=== PATIENT | female | born 1980 | race Caucasian/White ===

== ENCOUNTER 2020-01-29 09:33 | Outpatient (REF) | payer SELFPAY | END 2020-01-29 09:34 | disposition home or self-care (01) | LOC: HO.RESP 09:33 | PROVIDERS: Visit Provider Internal Medicine | DX: R06.02 Shortness of breath (principal) | CPT/HCPCS: 94010 ==

== ENCOUNTER 2023-02-13 11:24 | Outpatient (AMB) | payer MEDICAID, SELFPAY ==
--- NOTE | 2023-02-13 11:27 | MHC.OFFVIS ---
Intake Vital Signs 02/13/23 11:29 Height 5 ft 7 in Weight 323 lb 3.163 oz BMI 50.6 Intake Visit Reasons: Umbilical Hernia Intake Note: Patient referred for Umbilical hernia. Present for 1 yr. C/o pain with pressure on it. C/o bloody stools. Network Services Project Manager Required: No Accompanied by: Self / Same As Patient Allergies No Known Allergies [No Known Allergies*] Allergy (Unverified 02/13/23 11:30) HPI HPI Comments History of Present Illness Details Patient presents with a symptomatic ventral hernia. She has had this status post laparoscopic cholecystectomy at [facility] few years ago. It is increasing in size, becoming more symptomatic. She wished to have this repaired. She is tolerating a diet. Having regular bowel habits. She has no is other GI issues or complaints. Chart was reviewed patient evaluated [facility] Medical History (Updated 02/13/23 @ 11:36 by YANELY Prealta) Gallbladder calculus with acute cholecystitis Carpal tunnel syndrome, bilateral upper limbs Dermoid cyst of spine Tubal ligation evaluation Anxiety Arthritis of knee PCOS (polycystic ovarian syndrome) Venous stasis dermatitis of both lower extremities Skin ulcer of upper arm Vaginal discharge Vascular insufficiency Foot pain IFG (impaired fasting glucose) Nicotine dependence Obstructive sleep apnea syndrome Recurrent major depressive episodes Schizoaffective disorder, bipolar type Snoring Umbilical hernia Inflammatory dermatosis Essential hypertension Edema of lower extremity Dyspnea Degeneration of lumbar intervertebral disc Complicated varicose veins Chronic low back pain Chronic constipation Carpal tunnel syndrome Arthropathy of lumbar facet joint Amenorrhea Family History (Updated 02/13/23 @ 11:37 by YANELY Peralta) Mother Diabetes HTN (hypertension) Asthma Social History (Updated 02/13/23 @ 11:38 by YANELY Peralta) Alcohol intake: former Patient Tobacco Use Status: Current someday Tobacco user Tobacco use type: Cigarette Cigarettes Per Day: 5 Physical Exam Vital Signs: BMI result Body Mass Index 50.6 Const Other: Very corpulent female Chest Other: Chest breath sounds bilaterally, HS one in two GI Other: Very corporate abdominal wall with Enormous pannus. Supraumbilical incision. Patient was examined both supine and standing with Valsalva. Incarcerated incisional supraumbilical ventral hernia. Abdomen otherwise benign Assessment & Plan Assessment & Plan (1) Incarcerated incisional hernia: Code(s): K43.0 - Incisional hernia with obstruction, without gangrene Plan Risks, benefits, alternatives open incisional ventral incarcerated hernia repair with mesh reviewed the patient and included but not limited to bleeding, infection, recurrence, numbness, pain, scarring, bowel injury and the patient wishes to proceed. All questions were answered. Arrangements will be made for this. Coding Level of Care Code New Pt Level 5 (28944) Diagnoses Incarcerated incisional hernia K43.0
[2023-02-13 11:29] VITALS: BMI 50.6
== END 2023-02-13 12:05 | disposition home or self-care (01) ==
PROVIDERS: PCP Internal Medicine; Visit Provider Surgery
DX: K43.0 Incisional hernia with obstruction, without gangrene (principal)
CPT/HCPCS: 99204

== ENCOUNTER → 2023-02-13 11:24 | Outpatient (BNVA) | payer MEDICAID, SELFPAY | PROVIDERS: PCP Internal Medicine; Visit Provider Surgery | DX: K43.0 Incisional hernia with obstruction, without gangrene (principal) | CPT/HCPCS: 99202 ==

== ENCOUNTER 2023-03-10 05:56 | Day surgery (SDC) | payer MEDICAID, SELFPAY ==
[2023-03-07 14:02] VITALS: BMI 50.7
--- NOTE | 2023-03-09 23:02 | MHC.SHP ---
Pre-Procedural Eval Section A Date of Service: 03/09/23 The patient is an INPATIENT: No Changes since office visit: No Cold of Flu in the past 2 weeks, No New Medical Problems, No Changes in Medication and No Patient answered all questions The History & Physical has been completed within 30 days and I have reviewed it.: Yes Section B Chief Complaint: Incisional hernia with obstruction, without gangre Allergies: Allergies Allergy/AdvReac Type Severity Reaction Status Date / Time No Known Allergies Allergy Unverified 02/13/23 11:30 [No Known Allergies*] Plan I have reviewed the history and physical and performed a pertinent physical examination on my patient. No changes have occurred unless specified. Time Spent With Patient Time: Total time managing care of this patient today ____ minutes.
[2023-03-10] VITALS (8 sets, daily range): BP systolic 113–152; BP diastolic 49–86; PULSE 68–75; RESP 20; TEMP 36.1–36.4; O2SAT 95–99; BMI 51.1
[2023-03-10] MEDS: Lactated Ringers 1,000 ML 100 ML IVCONT (06:50)
--- NOTE | 2023-03-10 07:20 | P.CONAN_ITS ---
Documented by User: Deysi Yee NP 03/09/23 10:34 HPI - Anesthesia Eval Consult details Narrative: 42yo F for Open Repair Incarcerated Ventral Incisional hernia w/mesh Methadone daily PMFSH Active Problems Active Problems: All Active Problems (Updated 03/07/23 @ 13:52 by Adrianna Costello RN) Incarcerated incisional hernia (Acute) Past Medical History Medical History (Updated 03/07/23 @ 13:49 by Adrianna Costello RN) Gallbladder calculus with acute cholecystitis Carpal tunnel syndrome, bilateral upper limbs Dermoid cyst of spine Tubal ligation evaluation Anxiety Arthritis of knee PCOS (polycystic ovarian syndrome) Venous stasis dermatitis of both lower extremities Skin ulcer of upper arm Vaginal discharge Vascular insufficiency Foot pain IFG (impaired fasting glucose) Nicotine dependence Obstructive sleep apnea syndrome Recurrent major depressive episodes Schizoaffective disorder, bipolar type Snoring Umbilical hernia Inflammatory dermatosis Essential hypertension Edema of lower extremity Dyspnea Degeneration of lumbar intervertebral disc Complicated varicose veins Chronic low back pain Chronic constipation Arthropathy of lumbar facet joint Amenorrhea Family History Family History (Updated 02/13/23 @ 11:37 by YANELY Peralta) Mother Diabetes HTN (hypertension) Asthma Surgical History Surgical History (Updated 03/10/23 @ 06:18 by Lee Le RN) History of tubal ligation History of surgical removal of pilonidal cyst Social History Social History (Updated 02/13/23 @ 11:38 by YANELY Peralta) Alcohol intake: former Patient Tobacco Use Status: Current everyday Tobacco user Tobacco use type: Cigarette Cigarette Packs Per Day: 0.5 Cigarettes Per Day: 10.0 Second Hand Smoke Exposure: No Use of substances other than those prescribed or required for medical reasons: No Are you DNR?: No Advance Directives: No Advance Directives Information Provided: Yes Advance Directives on File: No Meds Allergies Allergy/AdvReac Type Severity Reaction Status Date / Time No Known Allergies Allergy Unverified 02/13/23 11:30 [No Known Allergies*] Home Medications Medication Instructions Recorded Confirmed Last Taken Type alprazolam 2 mg tablet 2 mg PO BEDTIME 02/13/23 03/07/23 Unknown History clonidine HCl 0.1 mg tablet 0.2 mg PO BEDTIME 02/13/23 03/07/23 Unknown History fluoxetine 40 mg capsule 80 mg PO BEDTIME 02/13/23 03/07/23 Unknown History gabapentin 600 mg tablet 600 mg PO DAILY 02/13/23 03/07/23 Unknown History naproxen 500 mg tablet 500 mg PO BID 02/13/23 03/07/23 Unknown History quetiapine 400 mg tablet 600 mg PO BEDTIME 02/13/23 03/07/23 Unknown History quetiapine 50 mg tablet (Seroquel) 50 mg PO BID 02/13/23 03/07/23 03/10/23 History amlodipine 5 mg tablet 5 mg PO DAILY 03/07/23 03/07/23 03/10/23 History lisinopril 20 1 tab PO DAILY 03/07/23 03/07/23 Unknown History mg-hydrochlorothiazide 12.5 mg tablet methadone 10 mg/mL oral concentrate 70 mg PO BEDTIME 03/07/23 03/07/23 03/10/23 History spironolactone 25 mg tablet 25 mg PO DAILY 03/07/23 03/07/23 Unknown History Exam Height,Weight and Vital Signs: Height 5 ft 7 in Weight 146.964 kg Assessment and Plan Assessment Anesthesia Assessment: Chart Reviewed Documented by User: Asiya Panda DO 03/10/23 07:59 [facility] Past Medical History Medical History (Updated 03/07/23 @ 13:49 by Adrianna Costello RN) Gallbladder calculus with acute cholecystitis Carpal tunnel syndrome, bilateral upper limbs Dermoid cyst of spine Tubal ligation evaluation Anxiety Arthritis of knee PCOS (polycystic ovarian syndrome) Venous stasis dermatitis of both lower extremities Skin ulcer of upper arm Vaginal discharge Vascular insufficiency Foot pain IFG (impaired fasting glucose) Nicotine dependence Obstructive sleep apnea syndrome Recurrent major depressive episodes Schizoaffective disorder, bipolar type Snoring Umbilical hernia Inflammatory dermatosis Essential hypertension Edema of lower extremity Dyspnea Degeneration of lumbar intervertebral disc Complicated varicose veins Chronic low back pain Chronic constipation Arthropathy of lumbar facet joint Amenorrhea Family History Family History (Updated 02/13/23 @ 11:37 by YANELY Peralta) Mother Diabetes HTN (hypertension) Asthma Family history of problems with anesthesia: No Surgical History Surgical History (Updated 03/10/23 @ 06:18 by Lee Le RN) History of tubal ligation History of surgical removal of pilonidal cyst History of Problems with Anesthesia: No Social History Social History (Updated 02/13/23 @ 11:38 by YANELY Peralta) Alcohol intake: former Patient Tobacco Use Status: Current everyday Tobacco user Tobacco use type: Cigarette Cigarette Packs Per Day: 0.5 Cigarettes Per Day: 10.0 Second Hand Smoke Exposure: No Use of substances other than those prescribed or required for medical reasons: No Are you DNR?: No Advance Directives: No Advance Directives Information Provided: Yes Advance Directives on File: No Meds Allergies Allergy/AdvReac Type Severity Reaction Status Date / Time No Known Allergies Allergy Unverified 02/13/23 11:30 [No Known Allergies*] Home Medications Medication Instructions Recorded Confirmed Last Taken Type alprazolam 2 mg tablet 2 mg PO BEDTIME 02/13/23 03/07/23 Unknown History clonidine HCl 0.1 mg tablet 0.2 mg PO BEDTIME 02/13/23 03/07/23 Unknown History fluoxetine 40 mg capsule 80 mg PO BEDTIME 02/13/23 03/07/23 Unknown History gabapentin 600 mg tablet 600 mg PO DAILY 02/13/23 03/07/23 Unknown History naproxen 500 mg tablet 500 mg PO BID 02/13/23 03/07/23 Unknown History quetiapine 400 mg tablet 600 mg PO BEDTIME 02/13/23 03/07/23 Unknown History quetiapine 50 mg tablet (Seroquel) 50 mg PO BID 02/13/23 03/07/23 03/10/23 History amlodipine 5 mg tablet 5 mg PO DAILY 03/07/23 03/07/23 03/10/23 History lisinopril 20 1 tab PO DAILY 03/07/23 03/07/23 Unknown History mg-hydrochlorothiazide 12.5 mg tablet methadone 10 mg/mL oral concentrate 70 mg PO BEDTIME 03/07/23 03/07/23 03/10/23 History spironolactone 25 mg tablet 25 mg PO DAILY 03/07/23 03/07/23 Unknown History Exam Exam Date and Time: March 10, 2023719 Height,Weight and Vital Signs: Height 5 ft 7 in Weight 146.964 kg Height 5 ft 7 in Weight 147.985 kg Vital Signs Temperature 96.9 F 03/10/23 06:30 Pulse Rate 70 03/10/23 06:30 Respiratory Rate 20 03/10/23 06:30 Blood Pressure 119/49 L 03/10/23 06:30 Pulse Oximetry 95 03/10/23 06:30 Oxygen Delivery Method Room Air 03/10/23 06:30 Temperature 96.9 F 03/10/23 06:30 Pulse Rate 70 03/10/23 06:30 Respiratory Rate 20 03/10/23 06:30 Blood Pressure 119/49 L 03/10/23 06:30 Pulse Oximetry 95 03/10/23 06:30 Oxygen Delivery Method Room Air 03/10/23 06:30 Airway Mallampati Class: III TM Dist: >3cm Neck ROM: Full Loose/Missing/Broken Teeth: Yes (Edentulous) Heart: S1S2 Lungs: CTAB Assessment and Plan Assessment Anesthesia Assessment: Anesthesia Plan Discussed and Chart Reviewed Final Anesthetic Review Family History of Problems with Anesthesia: No History of Problems with Anesthesia: No NPO: Yes ASA Class: III Final Preanesthetic Review: No Changes in Pt Med Stat, Meds/Allgs Chart Reviewed, Consent Obtained/Reviewed and Anes Risks/Benef Reviewed Patient Risk: Intermediate Procedure Risk: Low Anesthetic Plan Anesthetic Plan: GA and Agree w/ Assess. and Plan Disposition: Standard PACU
--- NOTE | 2023-03-10 08:56 | W.PM.OPN ---
Operative Note Operative Note Date of Service: 03/10/23 Narrative: Preoperative diagnosis: [] Incarcerated incisional ventral hernia Postop diagnosis ; same Procedure [] open repair incarcerated incisional hernia with Bard mesh Surgeon: [] Shoaib Sales Warehouse Driver: [] Jeanna Type of Anesthesia: [] General Indication for surgery: [] Patient had approximately 4 cm incarcerated incisional hernia with omental contents. Findings: [] Patient brought to the operating room, placed on operative table supine position, after adequate level of general anesthesia was induced, the patient's abdomen which was quite corpulent was prepped and draped in usual sterile fashion. Using a supraumbilical curvilinear incision, this carried down through skin, subcutaneous tissue, were large hernia sac was identified and dissected off the back of the umbilicus. This was dissected down the fascia and opened. Incarcerated omental contents and sac were amputated using Bovie. Fascia margins were circumferentially cleared and a Bard mesh placed in the defect. Superficial layer of the mesh was circumferentially sutured to the surrounding fascia using interrupted 0 Ethibond suture. At completion of procedure, mesh was in good position with no tension and no gaps. Wound was irrigated and secured hemostasis. The wound Was closed in the following manner; posterior aspect of the umbilicus was tacked to the wound floor using up to 3-0 Vicryl sutures. Skin was closed using interrupted inverted dermal 3-0 Vicryl sutures followed by Steri-Strips and sterile dressings. Wounds infiltrated 0.5% Marcaine/1% lidocaine at the beginning and at completion. Sponge, needle, instrument counts reported correct. Patient tolerated the procedure well and emerged anesthesia stable condition. EBL minimal
== END 2023-03-10 09:45 | disposition home or self-care (01) ==
PROVIDERS: PCP Internal Medicine; Visit Provider Surgery
PROC: (CPT 49594; principal; 2023-03-10 07:30)
DX: K43.0 Incisional hernia with obstruction, without gangrene (principal); I10 Essential (primary) hypertension; K59.00 Constipation, unspecified; R73.01 Impaired fasting glucose; E28.2 Polycystic ovarian syndrome; F33.9 Major depressive disorder, recurrent, unspecified; G89.29 Other chronic pain; M54.50 Low back pain, unspecified; D16.6 Benign neoplasm of vertebral column; G47.33 Obstructive sleep apnea (adult) (pediatric); Z79.899 Other long term (current) drug therapy; Z79.1 Long term (current) use of non-steroidal anti-inflammatories (NSAID); F11.90 Opioid use, unspecified, uncomplicated; Z90.49 Acquired absence of other specified parts of digestive tract; Z98.51 Tubal ligation status; Z98.890 Other specified postprocedural states; F17.210 Nicotine dependence, cigarettes, uncomplicated
CPT/HCPCS: 49594; 88302; C1781; J0131; J0690; J1100; J1885; J2250; J2405; J2704; J2795; J3010

== ENCOUNTER → 2023-03-10 05:56 | Outpatient (BNV) | payer MEDICAID, SELFPAY | PROVIDERS: PCP Internal Medicine; Visit Provider Surgery | DX: K43.0 Incisional hernia with obstruction, without gangrene (principal) | CPT/HCPCS: 49594 ==

== ENCOUNTER 2023-03-28 10:21 | Outpatient (AMB) | payer MEDICAID, SELFPAY ==
--- NOTE | 2023-03-24 12:53 | MHC.OFFVIS ---
Intake Intake Visit Reasons: S/P repair incarcerated ventral incisional hernia Allergies No Known Allergies [No Known Allergies*] Allergy (Unverified 02/13/23 11:30) [facility] Medical History (Updated 03/07/23 @ 13:49 by Adrianna Costello RN) Gallbladder calculus with acute cholecystitis Carpal tunnel syndrome, bilateral upper limbs Dermoid cyst of spine Tubal ligation evaluation Anxiety Arthritis of knee PCOS (polycystic ovarian syndrome) Venous stasis dermatitis of both lower extremities Skin ulcer of upper arm Vaginal discharge Vascular insufficiency Foot pain IFG (impaired fasting glucose) Nicotine dependence Obstructive sleep apnea syndrome Recurrent major depressive episodes Schizoaffective disorder, bipolar type Snoring Umbilical hernia Inflammatory dermatosis Essential hypertension Edema of lower extremity Dyspnea Degeneration of lumbar intervertebral disc Complicated varicose veins Chronic low back pain Chronic constipation Arthropathy of lumbar facet joint Amenorrhea Surgical History (Updated 03/17/23 @ 15:48 by YANELY Peralta) Incarcerated incisional hernia (03/10/23) History of tubal ligation History of surgical removal of pilonidal cyst Family History (Updated 02/13/23 @ 11:37 by YANELY Peralta) Mother Diabetes HTN (hypertension) Asthma Social History (Updated 02/13/23 @ 11:38 by YANELY Peralta) Alcohol intake: former Patient Tobacco Use Status: Current everyday Tobacco user Tobacco use type: Cigarette Cigarette Packs Per Day: 0.5 Cigarettes Per Day: 10.0 Second Hand Smoke Exposure: No Coding
[2023-03-28 11:19] VITALS: BP 129/63; PULSE 81; BMI 52.3
--- NOTE | 2023-03-28 11:19 | A.OFFVIS_ITS ---
Intake Vital Signs 03/28/23 11:19 Height 5 ft 7 in Weight 334 lb BMI 52.3 BP 129/63 Blood Pressure Location Rt brachial Position Sitting Pulse 81 Intake Visit Reasons: S/P repair incarcerated ventral incisional hernia Intake Note: Patient here s/p repair incarcerated ventral incisional hernia. Reports incision healing well. No longer taking rx pain meds. 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 She has minimal incisional discomfort. She is tolerating a diet. Having regular bowel habits. [facility] Medical History Gallbladder calculus with acute cholecystitis Carpal tunnel syndrome, bilateral upper limbs Dermoid cyst of spine Tubal ligation evaluation Anxiety Arthritis of knee PCOS (polycystic ovarian syndrome) Venous stasis dermatitis of both lower extremities Skin ulcer of upper arm Vaginal discharge Vascular insufficiency Foot pain IFG (impaired fasting glucose) Nicotine dependence Obstructive sleep apnea syndrome Recurrent major depressive episodes Schizoaffective disorder, bipolar type Snoring Umbilical hernia Inflammatory dermatosis Essential hypertension Edema of lower extremity Dyspnea Degeneration of lumbar intervertebral disc Complicated varicose veins Chronic low back pain Chronic constipation Arthropathy of lumbar facet joint Amenorrhea Surgical History Incarcerated incisional hernia (03/10/23) History of tubal ligation History of surgical removal of pilonidal cyst Family History Mother Diabetes HTN (hypertension) Asthma Social History Alcohol intake: former Patient Tobacco Use Status: Current everyday Tobacco user Tobacco use type: Cigarette Cigarette Packs Per Day: 0.5 Cigarettes Per Day: 10.0 Second Hand Smoke Exposure: No Physical Exam Vital Signs: Last Vital Signs Pulse 81 03/28/23 11:19 BP 129/63 03/28/23 11:19 BMI result Body Mass Index 52.3 GI Other: Abdomen soft. Wound clean dry and intact. Healing well. Assessment & Plan Assessment & Plan (1) Incarcerated incisional hernia: Onset Date: 03/10/23 Comment: Osman Strickland Code(s): K43.0 - Incisional hernia with obstruction, without gangrene Plan Patient has been given local instructions including avoiding strenuous activities for next few weeks time will otherwise follow up p.r.n.. All questions answered Coding Level of Care Code Global (36943) Diagnoses Incarcerated incisional hernia K43.0
== END 2023-03-28 11:33 | disposition home or self-care (01) ==
PROVIDERS: PCP Internal Medicine; Visit Provider Surgery
DX: K43.0 Incisional hernia with obstruction, without gangrene (principal); Z09 Encounter for follow-up examination after completed treatment for conditions other than malignant neoplasm
CPT/HCPCS: 99212

== ENCOUNTER → 2023-03-28 10:21 | Outpatient (BNVA) | payer MEDICAID, SELFPAY | PROVIDERS: PCP Internal Medicine; Visit Provider Surgery | DX: K43.0 Incisional hernia with obstruction, without gangrene (principal); I83.12 Varicose veins of left lower extremity with inflammation | CPT/HCPCS: 99212 ==

== ENCOUNTER 2023-03-28 10:31 | Outpatient (AMB) | payer MEDICAID, SELFPAY ==
[2023-03-28 10:24] VITALS: BP 148/88; PULSE 69; O2SAT 96; BMI 51.1
--- NOTE | 2023-03-28 10:24 | MHC.OFFVIS ---
Intake Vital Signs 03/28/23 10:24 Height 5 ft 7 in Weight 326 lb 4 oz BMI 51.1 BP 148/88 H Blood Pressure Location Rt brachial Position Sitting Pulse 69 Pulse Source Pulse Oximeter Pulse Oximetry (%) 96 Oxygen Delivery Method Room Air Intake Visit Reasons: LAND APPRAISER VV Intake Note: Pt presents to the office today for a LAND APPRAISER VV. Pt states she has a lot of swelling in her left leg and states she has some swelling on her right leg as well. Pt states her left leg is the worse. Pt states she gets pain in both legs especially when she is standing for longer periods of time.Pt states she has discoloration in her left ankle and leg. Pt states she also gets numbness and tingling in both legs and feet. Pt states she has not used support stockings. Allergies No Known Allergies [No Known Allergies*] Allergy (Unverified 03/28/23 11:21) HPI LAND APPRAISER VV HPI Details Very pleasant 42-year-old obese female patient presents for painful varicose veins. Complaints include pain over varicosities, swelling of lower extremities, cramping, fatigue, and heaviness of the lower extremities. It has been affecting there daily activities including walking. It is noted more so in left leg. Of note she does have significant back and lower extremity pain. She also does have a diagnosed history of sleep apnea. She continues to smoke about a half pack per day and is a nondiabetic. Patient denies any previous venous surgery or injections. Patient denies any history of DVT/ PE. Patient denies any history of phlebitis. Trial of compression includes - [id number] They now present for vascular evaluation regarding their varicose veins. [facility] Medical History Gallbladder calculus with acute cholecystitis Carpal tunnel syndrome, bilateral upper limbs Dermoid cyst of spine Tubal ligation evaluation Anxiety Arthritis of knee PCOS (polycystic ovarian syndrome) Venous stasis dermatitis of both lower extremities Skin ulcer of upper arm Vaginal discharge Vascular insufficiency Foot pain IFG (impaired fasting glucose) Nicotine dependence Obstructive sleep apnea syndrome Recurrent major depressive episodes Schizoaffective disorder, bipolar type Snoring Umbilical hernia Inflammatory dermatosis Essential hypertension Edema of lower extremity Dyspnea Degeneration of lumbar intervertebral disc Complicated varicose veins Chronic low back pain Chronic constipation Arthropathy of lumbar facet joint Amenorrhea Surgical History Incarcerated incisional hernia (03/10/23) History of tubal ligation History of surgical removal of pilonidal cyst Family History Mother Diabetes HTN (hypertension) Asthma Social History Alcohol intake: former Patient Tobacco Use Status: Current everyday Tobacco user Tobacco use type: Cigarette Cigarette Packs Per Day: 0.5 Cigarettes Per Day: 10.0 Second Hand Smoke Exposure: No Review of Systems Const Reports as per HPI ENT Reports no additional complaints Card Denies chest pain, Denies chest pain at rest and Denies chest pain with activity Resp Denies chest congestion and Denies cough GI Reports no additional complaints Musc Details: pain over varicosities, aching of lower extremities, swelling, cramping, heaviness and tiredness, itching Denies abnormal gait Skin/Breast Reports pruritus and Denies wounds Neuro Reports no additional complaints and Denies abnormal gait Psych Denies no additional complaints Physical Exam Vital Signs: Last Vital Signs Pulse 69 03/28/23 10:24 BP 148/88 H 03/28/23 10:24 Pulse Ox 96 03/28/23 10:24 Oxygen Delivery Method Room Air 03/28/23 10:24 BMI result Body Mass Index 51.1 Const General: cooperative, healthy appearing and comfortable Orientation/consciousness: oriented to person, oriented to place and oriented to time Neck Carotids: no bruits Chest Chest palpation & inspection: normal inspection of the chest and normal palpation of entire chest wall Resp Effort & Inspection: normal respiratory effort and able to speak in complete sentences Cardio Rate: regular rate Heart sounds: S1 normal heart sound present and S2 normal heart sound present Peripheral pulses: Peripheral pulses 2+ throughout GI Inspection: Yes normal to inspection Skin Other: +2 edema, large rope-like varicosities greater than 4 mm CEAP Classification C4 - skin color changes Ep - Etiology Primary As - superficial veins P - reflux General skin exam: dry skin Neuro General: oriented to person, oriented to place and oriented to time Extrem Right lower extremity: full ROM, normal capillary refill and edema Left lower extremity: full ROM, normal capillary refill and edema Psych Mental Status: mental status grossly normal Assessment & Plan Assessment & Plan (1) Varicose veins of left lower extremity with inflammation: Code(s): I83.12 - Varicose veins of left lower extremity with inflammation Plan: In short, the patient has evidence of venous insufficiency. I have discussed the pathophysiology with the patient. In addition I have provided informational material regarding venous disease to the patient. We have discussed conservative measures including compression, elevation, and exercise. I have also provided a handout regarding appropriate use of compression stockings and where to purchase good compression stockings as well. I have taken the liberty of ordering venous insufficiency testing with the patient. They will follow up with me after testing. The patient had an opportunity to ask questions regarding the treatment plan. All questions were answered. Imaging studies, laboratory studies and physical exam results were discussed and reviewed in detail. No major barriers to understanding were identified. The patient expressed understanding and agreement with the above treatment plan. The patient is aware they should contact our office by phone for worsening of the current condition or the appearance of new symptoms. Thank you for allowing me to participate in the vascular care of this patient. If you have any questions or concerns regarding the treatment for the above condition please do not hesitate to contact me. The office telephone contact is [phone]. This note is constructed using voice recognition software. While every effort has been made to ensure accuracy, nuclear engineering technician errors may have been included. Thank you for allowing me to participate in the care of your patient. Yours sincerely, Tahir Yañez MD, FACS, R.P.V.I. Orders: Orders US venous duplex LE BI 1 Week I83.12 - Varicose veins of left lower extremity with inflammation Coding Level of Care Code Est Pt Level 4 (37248) Diagnoses Varicose veins of left lower extremity with inflammation I83.12
== END 2023-03-28 11:13 | disposition home or self-care (01) ==
PROVIDERS: PCP Internal Medicine; Visit Provider Surgery Vascular Surgery
DX: I83.12 Varicose veins of left lower extremity with inflammation (principal)
CPT/HCPCS: 99213

== ENCOUNTER 2024-11-06 18:09 | Outpatient (REF) | payer MEDICAID, SELFPAY ==
[2024-11-11 11:37] LABS: Codeine, Ur NEGATIVE; Hydrocodone, Ur NEGATIVE
[2024-11-11 11:39] LABS: Hydromorphone, Ur NEGATIVE; Morphine, Ur 824; Oxycodone, Ur NEGATIVE; Oxymorphone, Ur NEGATIVE
[2024-11-11 11:40] LABS: Norhydrocodone, Ur NEGATIVE; Noroxycodone, Ur NEGATIVE
== END 2024-11-06 18:10 | disposition home or self-care (01) ==
LOC: HO.HHCLNP 18:09
PROVIDERS: Visit Provider Internal Medicine
DX: Z51.81 Encounter for therapeutic drug level monitoring (principal); Z79.899 Other long term (current) drug therapy
CPT/HCPCS: 80354; 80365; G0480

== ENCOUNTER 2024-11-28 17:16 | Outpatient (REF) | payer MEDICAID, SELFPAY ==
--- OUTSIDE RECORDS SUMMARY | 2024-11-28 10:30 | XMS_ITS | Encounter Summary ---
Author Organization [employer] Address [address] [facility] [address] [place] [address] Care Team Providers Care Creative Services Writer Name Role Phone Alysia Holbrook MD Primary Care Provider + Reason for Visit * Reason Comments PUMPER BREWERY RV Encounter Details Date Type Department Care Team (Latest Contact Info) Description 11/28/2024 10:30 AM EDT Clinical Support [facility] [address] [place] [address] Jayashree Johns RN Long-term current use of benzodiazepine (Primary Dx) Social History Tobacco Use Types Packs/Day Years Used Date Smoking Tobacco: Every Day Cigarettes Smokeless Tobacco: Never Alcohol Use Standard Drinks/Week Comments Never 0 (1 standard drink = 0.6 oz pur e alcohol) Depression Answer Date Recorded Patient Health Questionnaire-9 Score 20 11/11/2024 Patient Health Questionnaire-9 Score 20 11/11/2024 Last PHQ-9: Questionnaire Data Not on file 0 11/11/2024 Housing Stability Answer Date Recorded What is your housing situation today? I have marshall luna 01/31/[address] you li ve. Do you have problems with any of the following? None of the above 01/31/2024 Food Insecurity Answer Date Recorded Within the past 12 months, y ou worried that your food would run out before you got money to buy more: Never True 01/31/2024 Within the past 12 months,th e food you bought just didn't last and you didn't have enough money to get more: Never True Transportation Answer Date Recorded In the past 12 months, has l ack of transportation kept you from medical appts, meetings, work or from getting things needed for daily living? No 01/31/2024 Utilities Answer Date Recorded In the past 12 months, has t he electric, gas, oil or water [employer] threatened to shut off services in your home? No 01/31/2024 Depression Answer Date Recorded Patient Health Questionnaire-2 Score 6 11/11/2024 Internet Access Answer Date Recorded Internet Access Q1 Yes 01/31/2024 Internet Access Q2 Not on file 01/31/2024 Comments No Sex and Gender Information Value Date Recorded Sex Assigned at Female 01/31/2022 10:14 AM EDT Legal Sex Female 10:14 AM EDT Gender Identity Female 01/31/2022 10:14 AM EDT Sexual Orientation Straight 01/31/2022 10 :14 AM EDT documented as of this encounter Progress Notes * Jayashree Johns RN - 11/28/2024 10:30 AM EDT SUBJECTIVE: Vikki Cuenca is a 44 y.o. year old female who presents for PUMPER BREWERY RV Preferred language for medical information: Albanian Vikki Cuenca does report adherence to Alprazolam (Xanax) 0.5 mg, take 1 tablet every 8 hours PRN, last refilled 11/27/2024. Pt states she takes between 1-3 doses a day. The patient last took Alprazolam (Xanax) on: 11/28/2024 Medication effective: Yes Sleep habits: no issues Therapist: Yes UTOX obtained 11/06/24 was positive for BZO, MOP & FENT. Urine was sent to lab, confirmation returned Pos for MOP, but lab was unable to complete FENT testing d/t amount insufficient. Pt stated shehad recent use of heroine. 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 Last PCP visit: 02/09/2024 AIDEN-7 Total Score: 7 (11/06/2024 10:39 AM) Controlled substance agreement signed: Controlled Substance Agreement 11/06/2024 PUMPER BREWERY Tier: 1 Current Medications[1] Smoking status: Yes, 1/2 pack per day ETOH use: Denies Illicit substances: Yes, heroine usage. Patient states she has not used heroine since the last timeshe reported she had to this creative services writer on 11/06/24. Marijuana use: No Lab Results Component Value Date POCTHC Negative 11/28/2024 POCCOCAINEUR Negative 11/28/2024 POCOPIATEUR Negative 11/28/2024 DOAUR Negative 11/28/2024 POCAMPHETAMI Negative 11/28/2024 POCBENZODIUR Positive 11/28/2024 POCBARBSCRN Negative 11/28/2024 POCMETHADOUR Positive 11/28/2024 POCBUPSCRN Negative 11/28/2024 POCTCAUR Negative 11/28/2024 POCMDMAUR Negative 11/28/2024 POCOXYCODONE Negative 11/28/2024 POCPHENCYCUR Negative 11/28/2024 PROPOXUR Negative 11/28/2024 FENTANYLURIN Positive (A) 11/28/2024 Reviewed UTOX results. Explained to patient I would send urine out for FENT confirmation and call her if the results are abnormal. Pt adamant that she has not used heroine since she last told me she had on 11/06/24. ASSESSMENT: Encounter Diagnosis Name Primary? Long-term current use of benzodiazepine Yes PLAN: Information on acupuncture given: Previously discussed Narcan education provided: Previously discussed Narcan prescription: active Will update PCP with UTOX results. Patient also requesting assistance with obtaining a shower seat,flexible shower head and a CPAP machine. Vikki Cuenca will continue taking medication as prescribed and follow up at the next [facility] visit or sooner if needed. Vikki Cuenca has verbalized understanding of care plan. Future Appointments Date Time Provider Department Center 12/06/2024 11:30 AM Alysia Holbrook MD MEDICINE [facility] 12/17/2024 10:00 AM Jayashree Johns, RN [facility]ICINE [facility] Jayashree Johns, RN [1] Current Outpatient Medications: ALPRAZolam (Xanax) 0.5 MG tablet, Take 1 tablet (0.5 mg) by mouth if needed in the morning, at noon, and at bedtime for anxiety for up to 28 days. Do not start before November 27, 2024., Disp: 84 tablet, Rfl: 0 methadone (Dolophine) 10 MG/ML solution, Take 70 mL by mouth at bed time., Disp: , Rfl: ammonium lactate (Amlactin) 12 % cream, APPLY TOPICALLY NEEDED FOR DRY SKIN, Disp: 385 g, Rfl: 3 betamethasone dipropionate 0.05 % cream, Apply topically 2 times daily., Disp: 45 g, Rfl: 3 cloNIDine (Catapres) 0.1 MG tablet, TAKE 2 TABLETS AT BEDTIME AND 1 TWICE DAILY IF NEEDED, Disp: 120 tablet, Rfl: 1 Elastic Bandages & Supports (Medical Compression Stockings) [facility] [place], See Instructions, # 3 each, Maintenance, surgical, calf length 20-30 mm Hg, 08/14/20 11:34:00 EDT, Supply, Disp: , Rfl: FLUoxetine (PROzac) 20 MG capsule, Take 3 capsules (60 mg) by mouth in the morning., Disp: 90 capsule, Rfl: 1 gabapentin (Neurontin) 600 MG tablet, TAKE 1 TABLET BY MOUTH THREE TIMES A DAY, Disp: 90 tablet, Rfl: 1 lisinopril-hydroCHLOROthiazide 20-12.5 MG tablet, Take 2 tablets by mouth Once per day., Disp: 180 tablet, Rfl: 3 naloxone (Narcan) 4 mg/0.1 mL nasal spray, Administer 1 spray (4 mg) into affected nostril(s) if needed for opioid reversal. May repeat every 2-3 minutes if needed, alternating nostrils, until medical assistance becomes available., Disp: 2 each, Rfl: 3 naproxen (Naprosyn) 500 MG tablet, TAKE 1 TABLET BY MOUTH TWICE DAILY NEEDED FOR PAIN, Disp: 60 tablet, Rfl: 3 QUEtiapine (SEROquel) 400 MG tablet, TAKE 1 AND 1/2 TABLET BY MOUTH AT BEDTIME, Disp: 45 tablet, Rfl: 1 QUEtiapine (SEROquel) 50 MG tablet, Take 1 tablet (50 mg) by mouth if needed in the morning and at bedtime (anxiety)., Disp: 60 tablet, Rfl: 1 documented in this encounter Plan of Treatment Upcoming Encounters Date Type Department Care Team (Late st Contact Info) Description 12/06/2024 11:30 AM EDT Office Visit [facility] [address] [place] [address] Alysia Holbrook MD [address] [place], [place] [phone] 12/17/2024 10:00 AM EDT Clinical Support [facility] [address] [place] [address] Jayashree Johns, RN Scheduled Orders Name Type Priority Associated Diagnoses Orde r Schedule Drug Monitoring, Fentanyl, with Confirmation, Urine Lab Routine Long-term current use of benzodiazepine Ordered: 11/28/2024 documented as of this encounter Procedures Procedure Name Priority Date/Time Associated Diagnosis Comments POCT YOSELIN-14 URINE DRUG SCREEN Routine 11/28/2024 12:14 PM EDT Long-term current use of benzodiazepine documented in this encounter Results * (ABNORMAL) POCT YOSELIN-14 Urine Drug Screen (11/28/2024 12:14 PM EDT) THC Negative Negative Cocaine Screen, Urine Negative Negative Opiate Screen, Urine Negative Negative Methamphetamine Screen Urine Negative Negative Amphetamine Screen, Urine Negative Negative Benzodiazepines Screen, Urine Positive Negative Barbiturate Screen, Urine Negative Negative Methadone Screen, Urine Positive Negative Buprenophine Screen, Urine Negative Negative TCA, Urine Negative Negative MDMA Urine Negative Negative ng/mL Oxycodone Screen, Urine Negative Negative Phencyclidine (PCP), Urine Negative Negative Propoxyphene, Urine Negative Negative Fentanyl, Urine Positive(A) Negative Urine Urine specimen obtained by clean catch procedure / Unknown 11/28/2024 12:14 PM EDT Narrative Jayashree Johns RN - 11/28/2024 12:14 PM EDT UTOX cup Lot#[id number] Exp. 01/07/26 Internal Pass Control us Alysia Holbrook MD POINT OF CARE TEST ENTER /EDIT ORDERABLES Final Result documented in this encounter Visit Diagnoses Diagnosis Long-term current use of benzodiazepine- Primary documented in this encounter Additional Health Concerns Assessment Noted Time PHQ-9 Depression Total Score: 20 025 2:55 PM EDT documented as of this encounter Care Teams Creative Services Writer Relationship Specialty Start Date End Date Alysia Holbrook MD [address] [place] [phone] PCP - General Family Medicine 06/07/18 documented as of this encounter
--- OUTSIDE RECORDS SUMMARY | 2024-11-28 17:18 | XMS_ITS | Encounter Summary ---
Author Organization [employer] Address [address] [place] [address] [address] [place] [address] Care Team Providers Care Center Director Lead Teacher Name Role Phone Alysia Holbrook MD Primary Care Provider + Encounter Details Date Type Department Care Team (Late st Contact Info) Description 07/11/2022 Orders Only [facility] [address] [place] [phone] Ramandeep Griffin LPN Social History Tobacco Use Types Packs/Day Years Used Date Smoking Tobacco: Never Assessed Comments Unknown Sex and Gender Information Value Date Recorded Sex Assigned at Female 01/31/2022 10:14 AM EDT Legal Sex Female 10:14 AM EDT Gender Identity Female 01/31/2022 10:14 AM EDT Sexual Orientation Straight 01/31/2022 10 :14 AM EDT documented as of this encounter Plan of Treatment Upcoming Encounters Date Type Department Care Team (Late st Contact Info) Description 12/06/2024 11:30 AM EDT Office Visit [address] [phone] Alysia Holbrook MD [address] [place] [phone] 12/17/2024 10:00 AM EDT Clinical Support [address] [phone] Jayashree Johns RN documented as of this encounter Visit Diagnoses Not on filedocumented in this encounter Care Teams Center Director Lead Teacher Relationship Specialty Start Date End Date Alysia Holbrook MD [address] [place] [phone] PCP - General Family Medicine 06/07/18 documented as of this encounter
--- OUTSIDE RECORDS SUMMARY | 2024-11-28 17:18 | XMS_ITS | Encounter Summary ---
Author Organization [employer] Address [address] [facility] [address] [place] [address] Care Team Providers Care Senior Net C Developer Name Role Phone Alysia Holbrook MD Primary Care Provider + Reason for Visit * Reason Comments Med Refill Encounter Details Date Type Department Care Team ([facility] st Contact Info) Description 11/25/2024 Refill [facility] [address] [place], [place] [phone] Alysia Holbrook MD [address] [place], [place] [phone] Degeneration of lumbar intervertebral disc; Arthritis of knee Social History Tobacco Use Types Packs/Day Years [...] t he electric, gas, oil or water company threatened to shut off services in your [...] Description 12/06/2024 11:30 AM EDT Office Visit [facility] [address] [place] [phone] Alysia Holbrook MD [address] [place] [phone] 12/17/2024 10:00 AM EDT Clinical Support [facility] [address] [place] [phone] Jayashree Johns, CAPO documented as of this encounter Visit Diagnoses Diagnosis Degeneration of lumbar intervertebral disc Degeneration of lumbar or lumbosacral intervertebral disc Arthritis of knee Unspecified arthropathy, lower leg documented in this encounter Additional Health Concerns Assessment Noted Time PHQ-9 Depression Total Score: 20 025 2:55 PM EDT documented as of this encounter Care Teams Senior Net C Developer Relationship Specialty Start Date End Date Alysia Holbrook MD [address] [place] [phone] PCP - General Family Medicine 06/07/18 documented as of this encounter
--- OUTSIDE RECORDS SUMMARY | 2024-11-28 17:18 | XMS_ITS | Clinical Summary ---
Author Organization [employer] Address [address] [facility] [address] [facility] [address] [place] [address] Care Team Providers Care Facility Security Officer Name Role Phone Alysia Holbrook MD Primary Care Provider + Allergies No known active allergies Medications * This document contains information received from the source organization and may not represent a complete record from that organization. Elastic Bandages & Supports (Medical Compression Stockings) misc See Instructions, # 3 each, Maintenance, surgical, calf length 20-30 mm Hg, 08/14/20 11:34:00 EDT, Supply 021 Active methadone (Dolophine) 10 MG/ML solution Take 70 mL by mouth at bed time. Active lisinopril-hydroC HLOROthiazide 20-12.5 MG tabletIndications :Essential hypertension Take 2 tablets by mouth Once per day. 180 tablet 3 024 2024 Active betamethasone dipropionate 0.05 % cream Apply topically 2 times daily. 45 g 3 024 Active naproxen (Naprosyn) 500 MG tabletIndications :Degeneration of lumbar intervertebral disc,Arthritis of knee TAKE 1 TABLET BY MOUTH TWICE DAILY NEEDED FOR PAIN 60 tablet 3 025 Active QUEtiapine (SEROquel) 50 MG tabletIndications :Anxiety Take 1 tablet (50 mg) by mouth if needed in the morning and at bedtime (anxiety). 60 tablet 1 025 Active cloNIDine (Catapres) 0.1 MG tabletIndications :Anxiety TAKE 2 TABLETS AT BEDTIME AND 1 TWICE DAILY IF NEEDED 120 tablet 1 025 Active FLUoxetine (PROzac) 20 MG capsuleIndication s:Recurrent major depressive episodes (CMS/HCC) Take 3 capsules (60 mg) by mouth in the morning. 90 capsule 1 025 Active QUEtiapine (SEROquel) 400 MG tabletIndications :Schizoaffective disorder, bipolar type (CMS/HCC) TAKE 1 AND 1/2 TABLET BY MOUTH AT BEDTIME 45 tablet 1 025 Active ammonium lactate (Amlactin) 12 % cream APPLY TOPICALLY NEEDED FOR DRY SKIN 385 g 3 025 Active gabapentin (Neurontin) 600 MG tabletIndications :Degeneration of lumbar intervertebral disc,Anxiety TAKE 1 TABLET BY MOUTH THREE TIMES A DAY 90 tablet 1 025 Active naloxone (Narcan) 4 mg/0.1 mL nasal spray Administer 1 spray (4 mg) into affected nostril(s) if needed for opioid reversal. May repeat every 2-3 minutes if needed, alternating nostrils, until medical assistance becomes available. 2 each 3 025 2025 Active ALPRAZolam (Xanax) 0.5 MG tabletIndications :Anxiety Take 1 tablet (0.5 mg) by mouth if needed in the morning, at noon, and at bedtime for anxiety for up to 28 days. Do not start before November 27, 2024. 84 tablet 025 2024 Active gabapentin (Neurontin) 600 MG tabletIndications :Degeneration of lumbar intervertebral disc,Anxiety Take 1 tablet (600 mg) by mouth 3 times daily. 90 tablet 1 025 2024 Discontinued(R eorder (will not trigger notification to Pharmacy)) ALPRAZolam (Xanax) 0.5 MG tabletIndications :Anxiety Take 1 tablet (0.5 mg) by mouth if needed in the morning, at noon, and at bedtime for anxiety for up to 28 days. 84 tablet 025 2024 Discontinued(R eorder (will not trigger notification to Pharmacy)) ALPRAZolam (Xanax) 0.5 MG tabletIndications :Anxiety Take 1 tablet (0.5 mg) by mouth if needed in the morning, at noon, and at bedtime for anxiety for up to 28 days. 84 tablet 025 2024 Discontinued(R eorder (will not trigger notification to Pharmacy)) Active Problems Problem Noted Date Diagnosed Date AIDEN (generalized anxiety disorder) 11/07/2024 Long-term current use of benzodiazepine 11/07/19 25 History of incisional hernia repair 02/09/2024 Assessment & Plan (02/09/2024 3:33 PM EST): On 2022, doing well. Uncomplicated opioid dependence 02/09/2024 Assessment & Plan (02/09/2024 3:36 PM EST): On methadone + using street opiates on/off Advised to discuss with methadone provider re relapse, increase methadone so that she doesn't have cravings Advised reo relationship between relapse and worsening of LBP. FU with methadone providers. Venous stasis dermatitis of both lower extremiti es 01/19/2023 Assessment & Plan (01/19/2023 2:13 PM EDT): Refer to vascular surgery PCOS (polycystic ovarian syndrome) 01/19/2023 Assessment & Plan (01/19/2023 2:14 PM EDT): Start spironolactone for virilizing Sx Check labs Menstruation is more regular now Arthritis of knee 01/19/2023 Assessment & Plan (02/09/2024 3:30 PM EST): Most likely OA knee vs radiated pain form lumbar radiculopathy Declined PT Anxiety 01/19/2023 Assessment & Plan (01/19/2023 2:15 PM EDT): She continue to grieve the loss of her young niece last yr. Discussed with her coping mechanism with this She's able to reach out for safety and feels safe at home. She has family support Fu with counselor at [facility] Pt has crisis number Skin ulcer of upper arm, limited to breakdown of skin 09/21/2022 Assessment & Plan (09/21/2022 1:02 PM EDT): seems to be healing well, unfortunately seems to have some dermonecrosis due to IVDU, unclear if she has used XXXX Arthropathy of lumbar facet joint 08/03/2022 Chronic constipation 08/03/2022 Assessment & Plan (09/21/2022 12:57 PM EDT): most likely due to methadone use colace BID and miralax PRN constipation more than 2 days Complicated varicose veins 08/03/2022 Assessment & Plan (01/19/2023 2:09 PM EDT): Pt has had chronic skin changes and multiple ulcerations in the past Refer to vascular surgery Assessment & Plan (09/21/2022 12:58 PM EDT): Pt has venous stasis skin changes, no ulcerations Counseled regarding wearing compression stockings fu next appointment and decide to refer to vascular surgery if she is ready Dyspnea 08/03/2022 Umbilical hernia 08/03/2022 Assessment & Plan (01/19/2023 2:12 PM EDT): Refer to general surgery Assessment & Plan (09/21/2022 12:59 PM EDT): congratulated her on weight reduction, avoid constipation as above will fu next appointment and decide on referral for surgery once her other conditions are more stable, given that patient was out of care until recently Stasis ulcer 08/03/2022 Snoring 08/03/2022 Obstructive sleep apnea syndrome 08/03/2022 Assessment & Plan (02/09/2024 3:23 PM EST): Last sleep study was on 2010. I will re order new sleep study with titration She needs to restart use of CPAP to decreased morbidity and mortality. Advised re weight reduction Assessment & Plan (01/19/2023 2:13 PM EDT): Ordered on 09/2022, will fu with [facility] to schedule keanu Pt needs to use CPAP (with she has at home) to decrease morbidity and mortality Assessment & Plan (09/21/2022 12:55 PM EDT): Not using CPAP at this time. Will repeat sleep study at the hospital to allow for CPAP titration counseled regardign weight reduction Nicotine dependence 08/03/2022 Assessment & Plan (02/09/2024 3:39 PM EST): Advised to quit smoking, not interested at this time, she says she has too much in her plate with pain, Out of MH provider and varicosities FU at next appt. IFG (impaired fasting glucose) 08/03/2022 Assessment & Plan (02/09/2024 3:33 PM EST): Check labs Advised re weight reduction, avoid sodas, high carb meals. FU in 4w w labs Assessment & Plan (09/21/2022 1:00 PM EDT): IFG check labs, congratulated on weight reduction I have discussed with patient regarding increasing physicial activity and decrease calorie intake I'll check FBS with next set of labs. To check RBS at next visit. FU with me in 1 month Foot pain 08/03/2022 Assessment & Plan (09/21/2022 1:02 PM EDT): r/o plantar spurs and plantar fasciits recommended to avoid using flipflops and wear sneakers with proper support order x-rays and follow up in 4 weeks Vascular insufficiency 08/03/2022 Assessment & Plan (02/09/2024 3:28 PM EST): On LE, she has chronic venostasis changes but no dermatitis now. Rx compression stockings 15-20 mm HG Use betamethasone cream + Lac hydrin cream daily and fu win 4w Vaginal discharge 08/03/2022 Amenorrhea 08/29/2018 Carpal tunnel syndrome 08/29/2018 Degeneration of lumbar intervertebral disc 08/29 Assessment & Plan (02/09/2024 3:34 PM EST): >>ASSESSMENT AND PLAN FOR CHRONIC LOW BACK PAIN WRITTEN ON 09/21/2022 1:03 PM BY SG POWER Use lidocaine patch, recommended to come to walk-in acupuncture clinic congratulated on weight reduction, continue naproxen and gabapentin FU at next appointment and will refer to pain management if appropriate. Assessment & Plan (02/09/2024 3:32 PM EST): Continue Naproxen prn, declined PT or pain management referral. Advised re weight reduction, biofeedback. I discussed with her that her disease has probably advanced minimally over time but that rapid methadone taper could trigger pain, advised to avoid use of non prescription opiates. 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 She's off spironolactone, I will restart it if appropriate due to mineralocorticoid blockade properties that could improve some of her PCOS sxs. We discussed re restarting CPAP, will do sleep study again. Declined Influenza and covid boosters today. FU at next appt. Assessment & Plan (01/19/2023 2:12 PM EDT): Uncontrolled Add spironolactone 25 mg and it will also help from virilizing effects from PCOS Order labs and fu with me 6-8 wks Assessment & Plan (09/21/2022 12:56 PM EDT): BP is at goal continue amlodipine 5mg + zestoretic Counseled re low salt diet/increase moderate physical activity. Check home BP BIW and prn CP/ROMERO/CLIFTON Non smoking patient. Check labs and FU with me in 3-4 weeks. Schizoaffective disorder, bipolar type 6 Recurrent major depressive episodes 12/11/2015 Assessment & Plan (02/09/2024 3:37 PM EST): Previously seen at [facility], provider left. Continue Seroquel, clonidine and fluoxetine , I will continue refilling rx until she's seen by a new MH provider, will hold off on anew referral now until next appt. She feels safe at home and is able to reach for safety to her methadone counselors. Encounters * This document contains information received from the source organization and may not represent a complete record from that organization. Date Type Department Care Team Description 11/28/2024 10:30 AM EDT Clinical Support [facility] [place] [address] Jayashree Johns, CAPO Long-term current use of benzodiazepine (Primary Dx) 11/28/2024 Telephone [facility] [address] [place] [phone] Jayashree Jonhs RN Needs new order for sleep study 11/28/2024 Refill [facility] [address] [place] [phone] Jayashree Johns RN Degeneration of lumbar intervertebral disc; Arthritis of knee 11/27/2024 Travel 11/25/2024 Refill [facility] [address] [place] [phone] Alysia Holborok MD Degeneration of lumbar intervertebral disc; Arthritis of knee 11/25/2024 Refill [facility] [address] [place] [address] Jayashree Johns RN Anxiety 11/20/2024 Telephone [facility] [address] [place] [phone] Jayashree Johns RN Pt cancelled BRUSH OPERATOR appt 11/20/24 11/13/2024 Travel 11/11/2024 Refill [facility] [address] [place] [address] Alysia Holbrook MD Degeneration of lumbar intervertebral disc; Arthritis of knee 11/06/2024 10:00 AM EDT Clinical Support [facility] [place] [address] Jayashree Johns, CAPO Long-term current use of benzodiazepine (Primary Dx) 11/06/2024 Refill [facility] [place] [address] Jayashree Johns RN 11/06/2024 Travel 10/30/2024 Refill [facility] [address] [place] [address] Alysia Holbrook MD Anxiety; Degeneration of lumbar intervertebral disc 10/30/2024 Refill [facility] [address] [place] [address] Alysia Holbrook MD Degeneration of lumbar intervertebral disc; Anxiety 10/30/2024 Refill [facility] [address] [place] [address] Alysia Holbrook MD Anxiety 10/28/2024 Telephone [facility] [address] [place] [address] Jayashree Johns RN BRUSH OPERATOR Tier ? 10/21/2024 Refill [facility] [address] [place] [address] Alysia Holbrook MD 10/18/2024 Refill [facility] [address] [place] [address] Alysia Holbrook MD Degeneration of lumbar intervertebral disc; Anxiety 10/01/2024 Refill [facility] [address] [place] [phone] Alysia Holbrook MD Anxiety 09/18/2024 Orders Only [facility] [address] [place] [phone] Alysia Holbrook MD Screening for colorectal cancer (Primary Dx); Screening for colon cancer 09/17/2024 Telephone [facility] [address] [place] [phone] Alysia Holbrook MD Cologuard 09/02/2024 Travel from Last 3 Months Immunizations Immunization Administration Dates Next Due Influenza injectable quadriv alent preservative free 01/19/2023,02/07/2022,11/27/2018,2014 Influenza, IIV3, injectable 10/03/2011 Influenza, Split (incl. ankur fied surface antigen) 04/29/2013 Influenza, seasonal, injecta ble, preservative free 01/26/2016 Tdap 07/25/2016 Social History Tobacco Use Types Packs/Day Years Used Date Smoking Tobacco: Every Day Cigarettes Smokeless Tobacco: Never Tobacco Cessation:Ready to Q uit: Not Asked; Counseling Given: Not Answered Alcohol Use Standard Drinks/Week Comments Never 0 [...] Orientation Straight 01/31/2022 10 :14 AM EDT Last Filed Vital Signs Vital Sign Reading Time Taken Comments Blood Pressure 179/92 02/09/2024 8:58 AM EST Pulse 80 02/09/2024 8:58 AM EST Temperature 36.5 C (97.7 F) 02/09/2024 8:58 AM EST Respiratory Rate 20 02/09/2024 8:58 AM EST Oxygen Saturation 88% 01/19/2023 12:28 PM EDT Inhaled Oxygen Concentration - - Weight 162 kg (356 lb 6 oz) 02/09/2024 8:[address] Height 171.5 cm (5' 7.5 ) 02/09/2024 8:58 AM EST Body Mass Index 54.99 02/09/2024 8:58 AM EST Plan of Treatment Upcoming Encounters Date Type Department Care Team (Late st Contact Info) Description 12/06/2024 11:30 AM EDT Office Visit [facility] [address] [place] [address] Alysia Holbrook MD [address] [place] [address] 12/17/2024 10:00 AM EDT Clinical Support [facility] [address] [place] [phone] Jayashree Johns, RN Health Maintenance Due Date Last Done Comments CT Colonography 1978 Colonoscopy 1978 Colorectal Cancer Screening 1978 FIT DNA/Cologuard 1978 FIT 1978 FOBT 1978 HIV Screening 1978 Sigmoidoscopy 1978 Alcohol/Substance Use Screening 1990 Hepatitis C Screening 1996 Hepatitis B Vaccines (1 of 3 - 19+ 3-dose series) 1997 Pneumococcal Vaccine: Pediatrics (0 to 5 Years) and At-Risk Patients (6 to 49) Years (1 of 2 - PCV) 1997 Pap Smear 1999 Mammogram 2018 COVID-19 Vaccine ( season) 2023 02/07/2022, 08/03/2020, 07/06/2020 Cervical Cancer Screening 12/12/2023 HPV/Cotest 12/12/2023 12/11/2018, 11/10/2016 Influenza Vaccine (#1) 2024 , 02/07/2022, 11/27/2018, Additional history exists SDOH Screening 01/30/2025 01/31/2024 Family Planning (PISQ) 02/08/2025 02/09/2024 Depression Monitoring 05/14/2025 11/11/2024, 025 Tobacco Screening 09/02/2025 09/02/2024 Disability Screening 11/13/2025 11/13/2024 DTaP/Tdap/Td Vaccines (2 - Td or Tdap) 07/25/2026 07/25/2016 Lipid Panel 09/28/2026 09/28/2021 Zoster Vaccines (1 of 2) 2028 RSV Patients and Patients Aged 60 years or older (1 - 1-dose 75+ series) 2053 HIB Vaccines Aged Out No longer eligi ble based on patient's age to complete this topic HPV Vaccines Aged Out No longer eligi ble based on patient's age to complete this topic Hepatitis A Vaccines Aged Out No long er eligible based on patient's age to complete this topic IPV Vaccines Aged Out No longer eligi ble based on patient's age to complete this topic Meningococcal B Vaccine Aged Out No l onger eligible based on patient's age to complete this topic Meningococcal Vaccine Aged Out No zander karlee eligible based on patient's age to complete this topic RSV under 20 months Aged Out No longe r eligible based on patient's age to complete this topic Rotavirus Vaccines Aged Out No longer eligible based on patient's age to complete this topic Procedures Procedure Name Priority Date/Time Associated Diagnosis Comments POCT YOSELIN-14 URINE DRUG SCREEN Routine 11/28/2024 12:14 PM EDT Long-term current use of benzodiazepine POCT YOSELIN-14 URINE DRUG SCREEN Routine 11/06/2024 10:24 AM EDT Long-term current use of benzodiazepine DRUG MONITOR, OPIATES EXPANDED, QN, URINE Routine 11/06/2024 10:00 AM EDT Long-term current use of benzodiazepine LIPID PANEL, STANDARD Routine 09/28/2021 10:56 AM EDT ZZZ HISTORICAL HPV E6/E7 RFLX RICK 16 18/45 Routine 12/11/2018 10:35 AM EDT from Last 3 Months or Most Recently Relevant to Health Maintenance Results * (ABNORMAL) POCT YOSELIN-14 Urine Drug Screen (11/28/2024 12:14 PM EDT) Only the most recent of2 resultswithin the time period is included. THC Negative Negative Cocaine Screen, Urine Negative [...] procedure / Unknown 11/28/2024 12:14 PM EDT Jayashree Grijalva RN - 11/28/2024 12:14 PM EDT UTOX cup Lot#[id number] Exp. 01/07/26 Internal Pass Control Alysia Holbrook MD POINT OF CARE TEST ENTER /EDIT ORDERABLES Final Result * Drug Monitoring, Opiates Expanded, Quantitative, Urine (11/06/2024 10:00 AM EDT) Codeine, Urine NEGATIVE [facility] Comment:[id number] ng/mL Hydrocodone, Ur NEGATIVE [facility] Comment:[id number] ng/mL Oxycodone, Urine NEGATIVE [facility] Comment:[id number] ng/mL Oxycodone GC/MS Note SEE NOTE [facility] Comment:LDT Notes:Confirmati on tests were developed and their analyticalperformance characteristics have been determined by [employer]. It has not been cleared orapproved by the FDA. This assay has been validated pursuantto the CLIA regulations and is used for clinical purposes.Healthcare Providers needing Interpretation assistance,please contact us at [phone] ( ) M-F,8am to 10pm EST Morphine, Urine 824 [facility] Comment:[id number] ng/mL Hydromorphone, Urine NEGATIVE [facility] Comment:[id number] ng/mL Oxymorphone, Urine NEGATIVE [facility] Comment:[id number] ng/mL Opiates GC/MS Note SEE NOTE [facility] Comment: NOTES AND COMMENTSThis drug testing is for medical treatment only. Analysiswas performed as non-forensic testing and these resultsshould be used only by healthcare providers torender diagnosis or treatment, or to monitor progress ofmedical conditions.Opiates Notes:Morphine detected is consistent with the use of the drugMorphine. Morphine can be a prescribed drug and is also ametabolite of Codeine and Heroin. Lowconcentrations of Morphine have been observed followingingestion of products containing poppy seeds.LDT Notes:Confirmation tests were developed and their analyticalperformance characteristics have been determined by [facility]. It has not been cleared orapproved by the FDA. This assay has been validated pursuantto the CLIA regulations and is used for clinical purposes.Healthcare Providers needing Interpretation assistance,please contact us at [phone] ( ) M-F,8am to 10pm ESTPERFORMING SITE:[facility] [employer] [facility], [address] [place] [phone] [employer]: CRUZ AKINS MD, CLIA:[id number] Norhydrocodone, Urine NEGATIVE [facility] Comment:[id number] ng/mL Noroxycodone, Urine NEGATIVE [facility] Comment:[id number] ng/mL Urine (Urine, Random) 11/06/2024 10:00 AM EDT 11/06/2024 6:10 PM EDT us Alysia Holbrook MD LAB URINE ORDERABLES Fin al Result [facility] [address] [place] [phone] * (ABNORMAL) LIPID PANEL, STANDARD (09/28/2021 10:56 AM EDT) Chol/HDLC Ratio 3.2 <5.0 (calc) [facility] Cholesterol, Total 112 <200 mg/dL [facility] HDL Cholesterol 35(L) > OR = 50 mg/dL [facility] LDL Cholesterol 57 mg/dL (calc) [facility] Comment: Reference range: <100 Desirable range <100 mg/dL for primary prevention; <70 mg/dL for patients with CHD or diabetic patients with > or = 2 CHD risk factors. LDL-C is now calculated using the Surinder-Swanson calculation, which is a validated novel method providing better accuracy than the Friedewald equation in the estimation of LDL-C. Surinder SS et al. AUBREY. 2013;310(19): 0952-3983 (http://education.APX/faq/UPE114) Non-HDL Cholesterol 77 <130 mg/dL (calc) [facility] Comment: For patients with diabetes plus 1 major ASCVD risk factor, treating to a non-HDL-C goal of <100 mg/dL (LDL-C of <70 mg/dL) is considered a therapeutic option. Triglycerides 110 <150 mg/dL [facility] 09/28/2021 10:5 6 AM EDT us Alysia Holbrook MD LAB BLOOD ORDERABLES Fin al Result [facility] [address] * HPV E6/E7 RFLX RICK 16 18/45 (12/11/2018 10:35 AM EDT) HPV 18/45 RNA Test not performed [facility] HPV mRNA E6/E7 Not Detected NOT DETECTED [facility] Comment: This test was performed using the APTIMA(R) HPV Assay ([employer] This assay detects E6/E7 viral messenger RNA (mRNA) from 14 high-risk HPV types (16,18,31,33,35,39,45,51, 52,56,58,59,66,68). For additional information please refer to: http://education.[employer]/faq/QCI472j4 (This link is being provided for informational/ educational purposes only.) The analytical performance characteristics of this assay have been determined by [employer] [place], [place]. The modifications have not been cleared or approved by the FDA. This assay has been validated pursuant to the CLIA regulations and is used for clinical purposes. Please note: Effective 12/14/2015, HPV testing will be performed using [employer]'s APTIMA test which targets mRNA. Detecting mRNA instead of DNA, as in older methods, offers significant improvements in specificity. ADDITIONAL TESTING Not indicated () [facility] Comment: Test Performed by [employer] [place], [employer] [facility], [address] [place], [place] Wander Monsalve M.D., Ph.D., Director of Laboratories , CLIA [id number] HPV 16 RNA Test not performed [facility] 12/11/2018 10:3 5 AM EDT Alysia Holbrook MD HISTORICAL/NON ORDERABLE LABS Final Result Performing Organization Address City/State/[facility] Co de Phone Number [facility] [address] from Last 3 Months or Most Recently Relevant to Health Maintenance Insurance [facility] C3 Care Teams Facility Security Officer Relationship Specialty Start Date End Date Alysia Holbrook MD [address] [place] [phone] PCP - General Family Medicine 06/07/18
--- OUTSIDE RECORDS SUMMARY | 2024-11-28 17:18 | XMS_ITS | Clinical Summary ---
Author Organization [facility] Address [address] [place] [address] Care Team Providers Care Pharmacology Teacher Name Role Phone Unavailable Primary Care Provider Unavailabl e Source Comments PLEASE NOTE, if this patient is a minor, it may be UNLAWFUL to discuss sensitive information that is contained in these records (such as FAMILY PLANNING, MENTAL HEALTH or SUBSTANCE ABUSE) with the minor patient's parent or other person without the patient's specific authorization.[facility] Social History Tobacco Use Types Packs/Day Years Used Date Smoking Tobacco: Never Assessed Comments Unknown Sex and Gender Information Value Date Recorded Sex Assigned at Female 11/21/2024 11:09 AM PDT Legal Sex Female 11:09 AM PDT Gender Identity Female 11/21/2024 11:09 AM PDT Sexual Orientation Not on file Plan of Treatment Upcoming Encounters Date Type Department Care Team (Late st Contact Info) Description 12/03/2024 1:00 PM EDT Behavioral Health Visit [facility] [address] [place] [phone] Macy Barros APRN [address] [place] [address] Health Maintenance Due Date Last Done Comments Anxiety Screening 1978 Diabetes Screening 1978 HPV Screening 1978 Hepatitis C Screening 1978 Lipid Screening 1978 Pap + HPV 1978 Tobacco Screening 1978 HIV Screening 1993 Relationship Safety Screening/Counseling 1993 Hypertension Screening (#1) 1996 Imm-Hepatitis B (1 of 3 - 19 + 3-dose series) 1997 Cervical Cancer Screening 1999 Pap Smear 1999 Breast Cancer Screening (Mammogram) 2018 CT Colonography 2023 Colonoscopy 2023 Colorectal Cancer Screening 2023 FIT/gFOBT 2023 Fecal DNA 2023 Flexible Sigmoidoscopy 2023 Nze-CVERE-93 ( season) 2023 02/07/2022, 08/03/2020, 07/06/2020 Alcohol and Drug Screen 04/03/2024 Depression Annual Screen 04/03/2024 Imm-Influenza (#1) 2024 01/19/2023, 1 04/09/2021, 11/27/2018, Additional history exists Imm-DTaP/Tdap/Td (2 - Td or Tdap) 07/25/2026 017 Cervical Ablation/Cold-Knife Conization Discontinued Cervical Cryotherapy Discontinued Colposcopy Discontinued Endometrial Biopsy Discontinued Excision/Leep Discontinued HPV Genotyping Discontinued Vaginal Pap Discontinued Vulvoscopy Discontinued Insurance [facility] [place] [address]
--- OUTSIDE RECORDS SUMMARY | 2024-11-28 17:18 | XMS_ITS | Encounter Summary ---
Author Organization [employer] Address [address] [facility] 7t [place] [address] Care Team Providers Care Diesel Engineer Name Role Phone Alysia Holbrook MD Primary Care Provider + Reason for Visit * Reason Onset Date Comments Med Refill 11/25/2024 Encounter Details Date Type Department Care Team (Late st Contact Info) Description 11/25/2024 Refill [facility] [address] [place] [address] Jayashree Johns RN Anxiety Social History Tobacco Use Types Packs/Day Years [...] your housing situation today? I have marshall ulna 01/31/[address] you li [...] 11:30 AM EDT Office Visit [facility] [address] [place] [address] Alysia Holbrook MD [address] [place] [address] 12/17/2024 10:00 AM EDT Clinical Support [address] [address] Jayashree Johns RN documented as of this encounter Visit Diagnoses Diagnosis Anxiety Anxiety state, unspecified documented in this encounter Additional Health Concerns Assessment Noted Time PHQ-9 Depression Total Score: 20 025 2:55 PM EDT documented as of this encounter Care Teams Diesel Engineer Relationship Specialty Start Date End Date Alysia Holbrook MD [address] [place] [phone] PCP - General Family Medicine 06/07/18 documented as of this encounter
--- OUTSIDE RECORDS SUMMARY | 2024-11-28 17:18 | XMS_ITS | Encounter Summary ---
Author Organization [employer] Address [address] [facility] 7t [place] [address] Care Team Providers Care Bilingual Customer Service Specialist Name Role Phone Alysia Holbrook MD Primary Care Provider + Reason for Visit * Reason Comments Med Refill Encounter Details Date Type Department Care Team ([facility] st Contact Info) Description 08/05/2024 Refill [facility] [address] [place], [place] [phone] Alysia Holbrook MD [address] [place], [place] [phone] Anxiety Social History Tobacco Use Types Packs/Day Years Used Date Smoking Tobacco: Every Day Cigarettes Smokeless Tobacco: Never Alcohol Use Standard Drinks/Week Comments Never 0 (1 standard drink = 0.6 oz pur e alcohol) Depression Answer Date Recorded Patient Health Questionnaire-9 Score 22 09/21/2022 Housing Stability Answer Date Recorded What is your housing situation today? I have marshallchina luna 01/31/[address] you [...] t he electric, gas, oil or water [employer] threatened to shut off services in your home? No 01/31/2024 Depression Answer Date Recorded Patient Health Questionnaire-2 Score 6 09/21/2022 Internet Access Answer Date Recorded Internet Access [...] Description 12/06/2024 11:30 AM EDT Office Visit [facility] [address] [place] [phone] Alysia Holbrook MD [address] [place] [address] 12/17/2024 10:00 AM EDT Clinical Support [address] [address] Jayashree Johns, CAPO documented as of this encounter Visit Diagnoses Diagnosis Anxiety Anxiety state, unspecified documented in this encounter Additional Health Concerns Assessment Noted Time PHQ-9 Depression Total Score: 22 023 10:16 AM EDT documented as of this encounter Care Teams Bilingual Customer Service Specialist Relationship Specialty Start Date End Date Alysia Holbrook MD [address] [place] [phone] PCP - General Family Medicine 06/07/18 documented as of this encounter
--- OUTSIDE RECORDS SUMMARY | 2024-11-28 17:18 | XMS_ITS | Encounter Summary ---
Author Organization [employer] Address 75 [facility] 7t [place] [address] Care Team Providers Care Internal Medicine Veterinary Technician Name Role Phone Alysia Holbrook MD Primary Care Provider + Reason for Visit * Reason Comments Med Refill Encounter Details Date Type Department Care Team ([facility] st Contact Info) Description 07/19/2024 Refill [facility] [address] [place], [place] [phone] Alysia Holbrook MD 230 [place], [place] [phone] Degeneration of lumbar intervertebral disc; Arthritis of [...] Description 12/06/2024 11:30 AM EDT Office Visit [facility] [address] [place] [address] Alysia Holbrook MD [address] [place] [address] 12/17/2024 10:00 AM EDT Clinical Support [address] [address] Jayashree Johns RN documented as of this encounter Visit Diagnoses Diagnosis Degeneration of lumbar intervertebral disc Degeneration of lumbar or lumbosacral intervertebral disc Arthritis of knee Unspecified arthropathy, lower leg documented in this encounter Additional Health Concerns Assessment Noted Time PHQ-9 Depression Total Score: 22 023 10:16 AM EDT documented as of this encounter Care Teams Internal Medicine Veterinary Technician Relationship Specialty Start Date End Date Alysia Holbrook MD [address] [place] [phone] PCP - General Family Medicine 06/07/18 documented as of this encounter
--- OUTSIDE RECORDS SUMMARY | 2024-11-28 17:18 | XMS_ITS | Encounter Summary ---
Author Organization [employer] Address [address] [facility] 7t [place] [address] Care Team Providers Care Elevator Attendant Name Role Phone Alysia Holbrook MD Primary Care Provider + Reason for Visit * Reason Comments Med Refill Encounter Details Date Type Department Care Team ([facility] st Contact Info) Description 03/27/[address] [facility] 230 [place], [place] [phone] Alysia Holbrook MD 230 [place], [place] [phone] Essential hypertension Social History Tobacco Use Types Packs/Day Years [...] the past 12 months, has t he [employer], oil or water company threatened to shut [...] 12/06/2024 11:30 AM EDT Office [address] [facility] [address] [place] [address] Alysia Holbrook MD [address] [place] [address] 12/17/2024 10:00 AM EDT Clinical Support [facility] [address] [place] [address] Jayashree Johns, CAPO documented as of this encounter Visit Diagnoses Diagnosis Essential hypertension Unspecified essential hypertension documented in this encounter Additional Health Concerns Assessment Noted Time PHQ-9 Depression Total Score: 22 023 10:16 AM EDT documented as of this encounter Care Teams Elevator Attendant Relationship Specialty Start Date End Date Alysia Holbrook MD [address] [place] [phone] PCP - General Family Medicine 06/07/18 documented as of this encounter
--- OUTSIDE RECORDS SUMMARY | 2024-11-28 17:18 | XMS_ITS | Encounter Summary ---
Author Organization [employer] Address 75 [facility] 7t [place] [address] Care Team Providers Care Naumkeag Operator Name Role Phone Alysia Holbrook MD Primary Care Provider + Reason for Visit * Reason Onset Date Comments Med Refill 04/11/2024 Encounter Details Date Type Department Care Team (Late st Contact Info) Description 04/11/2024 Telephone [facility] [address] [place], [place] [phone] Alysia Holbrook MD [address] [place], [place] [phone] Med Refill Social History Tobacco Use Types Packs/Day Years [...] AM EDT documented as of this encounter Miscellaneous Notes * Telephone Encounter - Shannan Huerta LPN - 04/11/2024 1:10 PM EST Naproxen was sent to [facility] #[id number] on 02/09/24 #60 with 3 refills other medication isn't prescribed by PCP. Please advise patient to call Anna Sands (prescribing MD) * Telephone Encounter - Breanna Dickinson - 04/11/2024 12:36 PM EST TC from pt requesting medication refill. Medications needing refill : cloNIDine (Catapres) 0.1 MG tablet QUEtiapine (SEROquel) 400 MG tablet QUEtiapine (SEROquel) 50 MG tablet naproxen (Naprosyn) 500 MG tablet To be sent to: [facility] #[id number] documented in this encounter Plan of Treatment Upcoming Encounters Date Type Department Care Team (Late st Contact Info) Description 12/06/2024 11:30 AM EDT Office Visit [facility] [address] [place] [address] Alysia Holbrook MD [address] [place] [address] 12/17/2024 10:00 AM EDT Clinical Support [facility] [address] [place] [address] Jayashree Johns, RN documented as of this encounter Visit Diagnoses Not on filedocumented in this encounter Additional Health Concerns Assessment Noted Time PHQ-9 Depression Total Score: 22 023 10:16 AM EDT documented as of this encounter Care Teams [place] Operator Relationship Specialty Start Date End Date Alysia Holbrook MD [address] [place] [address] PCP - General Family Medicine 06/07/18 documented as of this encounter
--- OUTSIDE RECORDS SUMMARY | 2024-11-28 17:18 | XMS_ITS | Encounter Summary ---
Author Organization [employer] Address [address] [facility] 7t [place] [address] Care Team Providers Care Cloth Stretcher Name Role Phone Alysia Holbrook MD Primary Care Provider + Reason for Visit * Reason Comments Med Refill Encounter Details Date Type Department Care Team (Late st Contact Info) Description 06/23/2024 Refill [facility] [address] [place], [place] [phone] Alysia Holbrook MD [address] [place], [place] [phone] Degeneration of lumbar intervertebral disc; Anxiety Social History Tobacco Use Types Packs/Day [...] Description 12/06/2024 11:30 AM EDT Office Visit [facility] [address] [place] [address] Alysia Holbrook MD [address] [place] [address] 12/17/2024 10:00 AM EDT Clinical Support [address] [address] Jayashree Johns RN documented as of this encounter Visit Diagnoses Diagnosis Degeneration of lumbar intervertebral disc Degeneration of lumbar or lumbosacral intervertebral disc Anxiety Anxiety state, unspecified documented in this encounter Additional Health Concerns Assessment Noted Time PHQ-9 Depression Total Score: 22 023 10:16 AM EDT documented as of this encounter Care Teams Cloth Stretcher Relationship Specialty Start Date End Date Alysia Holbrook MD [address] [place] [address] PCP - General Family Medicine 06/07/18 documented as of this encounter
--- OUTSIDE RECORDS SUMMARY | 2024-11-28 17:18 | XMS_ITS | Encounter Summary ---
Author Organization [employer] Address [address] [facility] 7t [place] [address] Care Team Providers Care Hearing Therapist Name Role Phone Alysia Holbrook MD Primary Care Provider + Reason for Visit * Reason Comments Med Refill Encounter Details Date Type Department Care Team ([facility] st Contact Info) Description 10/30/2024 Refill [facility] 230 [place], [place] [phone] Alysia Holbrook MD [address] [place], [place] [phone] Anxiety; Degeneration of lumbar intervertebral disc Social History Tobacco Use Types Packs/Day Years [...] Description 12/06/2024 11:30 AM EDT Office Visit [facility] [address] [place] [address] Alysia Holbrook MD [address] [place] [address] 12/17/2024 10:00 AM EDT Clinical Support [address] [address] Jayashree Johns RN documented as of this encounter Visit Diagnoses Diagnosis Anxiety Anxiety state, unspecified Degeneration of lumbar intervertebral disc Degeneration of lumbar or lumbosacral intervertebral disc documented in this encounter Additional Health Concerns Assessment Noted Time PHQ-9 Depression Total Score: 22 023 10:16 AM EDT documented as of this encounter Care Teams Hearing Therapist Relationship Specialty Start Date End Date Alysia Holbrook MD [address] [place] [phone] PCP - General Family Medicine 06/07/18 documented as of this encounter
--- OUTSIDE RECORDS SUMMARY | 2024-11-28 17:18 | XMS_ITS | Encounter Summary ---
Author Organization [employer] Address [address] [place] [address] 7t [place] [address] Care Team Providers Care Coding Clerks Supervisor Name Role Phone Alysia Holbrook MD Primary Care Provider + Encounter Details Date Type Department Care Team (Late st Contact Info) Description 03/16/2022 Orders Only [facility] [address] [place] [address] Ramandeep Griffin LPN Social History Tobacco Use [...] Description 12/06/2024 11:30 AM EDT Office Visit [facility] [address] [place] [address] Alysia Holbrook MD [address] [place] [address] 12/17/2024 10:00 AM EDT Clinical Support [facility] [address] [place] [address] [phone] Jayashree Johns RN documented as of this encounter Visit Diagnoses Not on filedocumented in this encounter Care Teams Coding Clerks Supervisor Relationship Specialty Start Date End Date Alysia Holbrook MD [address] [place] [address] [phone] PCP - General Family Medicine 06/07/18 documented as of this encounter
--- OUTSIDE RECORDS SUMMARY | 2024-11-28 17:18 | XMS_ITS | Encounter Summary ---
Author Organization [employer] Address [address] [place] [address] 7t [place] [address] Care Team Providers Care Plasma Processing Technician Name Role Phone Alysia Holbrook MD Primary Care Provider + Reason for Visit * Reason Onset Date Comments Nurse Triage 01/03/2023 Encounter Details Date Type Department Care Team (Late st Contact Info) Description 01/03/2023 Telephone [facility] 230 [place], [place] [phone] Alysia Holbrook MD [address] [place], [place] [phone] Nurse Triage Social History Tobacco Use Types Packs/Day Years Used Date Smoking Tobacco: Every Day Cigarettes Smokeless Tobacco: Never Alcohol Use Standard Drinks/Week Comments Never 0 (1 standard drink = 0.6 oz pur e alcohol) Depression Answer Date Recorded Patient Health Questionnaire-9 Score 22 09/21/2022 Depression Answer Date Recorded Patient Health Questionnaire-2 Score 6 09/21/2022 Comments Unknown Sex and Gender Information Value Date Recorded Sex Assigned at Female 01/31/2022 10:14 AM EDT Legal Sex Female 10:14 AM EDT Gender Identity Female 01/31/2022 10:14 AM EDT Sexual Orientation Straight 01/31/2022 10 :14 AM EDT documented as of this encounter Miscellaneous Notes * Telephone Encounter - Lakisha Bahena RN - 01/03/2023 3:51 PM EDT Triage call Pt reports umbilical hernia has gotten larger and is more uncomfortable. Pt is having difficulty with constipation and has stopped taking colace and miralax as prescribed 21/2 weeks ago because, they don't work anymore . Pt had BM 2 days ago with some blood on the stool and in the toilet bowl like a period blood . Pt does report some firmness in abdomen above umbillicus and decreased appetite because it is uncomfortable after Pt eats. Pt is advised to seek evaluation at nearest EDand then call for follow up but, Pt reports, I don't want to go there and have them think I'm crazy and have to wait, I will just leave. Pt is requesting an apt with PCP , explained to Pt that it would be a couple of weeks before PCP could see Pt but, requests apt with PCP only. ASK apt with PCP 1215pm 01/19/23. Pt declined offer to go to [facility] open till 8pm today. Pt doesn't have transportation and will call PT 1 for apt scheduled. Pt is advised to increase fluid intake to 8 glasses per day, increase fresh fruits/vegetables and fiber. Pt agrees. It is stressed by this database report writer the need to seekevaluation in closest ED if increased pain, rectal bleeding, hernia size or any other worsening symptoms and Pt agrees. Protocol Used: Rectal Bleeding (Adult) Protocol-Based Disposition: Go to ED/[facility] Now (or to Office with PCP Approval) Positive Triage Question: * Constant abdominal pain lasting > 2 hours * All higher-acuity triage questions were negative Care Advice Discussed: * Reassurance and Education - Mild Rectal Bleeding * Warm Saline SITZ Baths - For Rectal Symptoms * Warm Saline Sitz Bath - How to Make a SITZ Bath * To Soften Stools and Treat Constipation * High Fiber Diet * Hydrocortisone Ointment for Rectal Itching * Reasons To Call Back - Bleeding increases in amount - Bleeding occurs 3 or more times after using Care Advice - You become worse * Telephone Encounter - Ella Brady - 01/03/2023 3:01 PM EDT Symptom: Rectal Bleeding Outcome: Schedule a same-day appointment or talk to a nurse or provider today Reason: Just a small amount of blood and patient feels normal (acts normal), pt does have a hernia and is growing to the point pt is gaining discomfort The caller accepted this outcome Please contact pt at [phone] documented in this encounter Plan of Treatment Upcoming Encounters Date Type Department Care Team (Late st Contact Info) Description 12/06/2024 11:30 AM EDT Office Visit [address] [address] Alysia Holbrook MD [address] [place] [address] 12/17/2024 10:00 AM EDT Clinical Support [address] [address] Jayashree Johns RN documented as of this encounter Visit Diagnoses Not on filedocumented in this encounter Additional Health Concerns Assessment Noted Time PHQ-9 Depression Total Score: 22 06/ 023 10:16 AM EDT documented as of this encounter Care Teams Plasma Processing Technician Relationship Specialty Start Date End Date Alysia Holbrook MD [address] [place] [phone] PCP - General Family Medicine 06/07/18 documented as of this encounter
--- OUTSIDE RECORDS SUMMARY | 2024-11-28 17:18 | XMS_ITS | Encounter Summary ---
Author Organization [employer] Address [address] [place] [address] 7t [place] [address] Care Team Providers Care Animal Control Licensing Worker Name Role Phone Alysia Holbrook MD Primary Care Provider + Encounter Details Date Type Department Care Team (Late st Contact Info) Description 04/15/2022 Orders Only [facility] [address] [place] [phone] Ramandeep Griffin LPN Social History Tobacco Use [...] Description 12/06/2024 11:30 AM EDT Office Visit [address] [address] Alysia Holbrook MD [address] [place] [address] 12/17/2024 10:00 AM EDT Clinical Support [address] [phone] Jayashree Johns RN documented as of this encounter Visit Diagnoses Not on filedocumented in this encounter Care Teams Animal Control Licensing Worker Relationship Specialty Start Date End Date Alysia Holbrook MD [address] [place] [address] [phone] PCP - General Family Medicine 06/07/18 documented as of this encounter
--- OUTSIDE RECORDS SUMMARY | 2024-11-28 17:18 | XMS_ITS | Encounter Summary ---
Author Organization [employer] Address [address] [facility] 7t [place] [address] Care Team Providers Care Mems Engineer Name Role Phone Alysia Holbrook MD Primary Care Provider + Reason for Visit * Reason Comments Med Refill Encounter Details Date Type Department Care Team ([facility] st Contact Info) Description 11/11/2024 Refill [facility] MEDICINE [address] [place], [place] [phone] Alysia Holbrook MD [address] [place], [place] [phone] Degeneration of lumbar intervertebral disc; Arthritis of [...] AM EDT documented as of this encounter Functional Status * Over the past 2 weeks, how often have you been bothered by any of the following problems? Question Answer Date of Assessment Author Patient Health Questionnaire -2 Score 6 11/11/2024 2:55 PM EDT Bianca Pak ctoria * Little interest or pleasure in doing things Answer Date of Assessment Author Nearly every day 11/11/2024 2:55 PM EDT Renea Lucio Ba * Feeling down, depressed, or hopeless Answer Date of Assessment Author Nearly every day 11/11/2024 2:55 PM EDT Renea Lucio Ba * Trouble falling or staying asleep, or sleeping too much Answer Date of Assessment Author Nearly every day 11/11/2024 2:55 PM EDT Renea Lucio Ba * Feeling tired or having little energy Answer Date of Assessment Author Nearly every day 11/11/2024 2:55 PM EDT Renea Lucio Ba * Poor appetite or overeating Answer Date of Assessment Author Nearly every day 11/11/2024 2:55 PM EDT Renea Lucio Ba * Feeling bad about yourself - or that you are a failure or have let yourself or your family down Answer Date of Assessment Author Nearly every day 11/11/2024 2:55 PM KYRAT Renea Lucio Ba * Trouble concentrating on things, such as reading the newspaper or watching television Answer Date of Assessment Author Several days 11/11/2024 2:55 PM EDT Renea Hernandez * Moving or speaking so slowly that other people could have noticed? Or the opposite - being so fidgety or restless that you have been moving around a lot more than usual. Answer Date of Assessment Author Several days 11/11/2024 2:55 PM EDT Renea Hernandez * Thoughts that you would be better off or hurting yourself in some way Answer Date of Assessment Author Not at all 11/11/2024 2:55 PM EDT Renea Hernandez * Patient Health Questionnaire-9 Score Answer Date of Assessment Author 20 11/11/2024 2:55 PM EDT Renea Hernandez * How difficult have these problems made it for you to do your work, take care of things at home, or get along with other people? Answer Date of Assessment Author Very difficult 11/11/2024 2:55 PM EDT Renea Hernandez documented as of this encounter Plan of Treatment Upcoming Encounters Date Type Department Care Team (Late st Contact Info) Description 12/06/2024 11:30 AM EDT Office Visit [facility] MEDICINE [address] [place] [phone] Alysia Holbrook MD [address] [place] [phone] 12/17/2024 10:00 AM EDT Clinical Support [address] [address] Jayashree Johns, CAPO documented as of this encounter Visit Diagnoses Diagnosis Degeneration of lumbar intervertebral disc Degeneration of lumbar or lumbosacral intervertebral disc Arthritis of knee Unspecified arthropathy, lower leg documented in this encounter Additional Health Concerns Assessment Noted Time PHQ-9 Depression Total Score: 025 2:55 PM EDT documented as of this encounter Care Teams Mems Engineer Relationship Specialty Start Date End Date Alysia Holbrook MD [address] [place] [phone] PCP - General Family Medicine 06/07/18 documented as of this encounter
--- OUTSIDE RECORDS SUMMARY | 2024-11-28 17:18 | XMS_ITS | Encounter Summary ---
Author Organization [employer] Address [address] [place] [address] 7 [place] [address] Care Team Providers Care Multimedia Assistant Name Role Phone Alysia Holbrook MD Primary Care Provider + Reason for Visit * Reason Comments Med Refill Encounter Details Date Type Department Care Team (Late st Contact Info) Description 08/09/2022 Refill [facility] MEDICINE [address] [place] [address] [phone] Alysia Holbrook MD [address] [place] [address] [phone] Arthritis of knee Social History Tobacco Use [...] Description 12/06/2024 11:30 AM EDT Office Visit [facility] MEDICINE [address] [place] [address] [phone] Alysia Holbrook MD [address] [place] [address] [phone] 12/17/2024 10:00 AM EDT Clinical Support [facility] MEDICINE [address] [place] [address] [phone] Jayashree Johns RN documented as of this encounter Visit Diagnoses Diagnosis Arthritis of knee Unspecified arthropathy, lower leg documented in this encounter Care Teams Multimedia Assistant Relationship Specialty Start Date End Date Alysia Holbrook MD [address] [place] [phone] PCP - General Family Medicine 06/07/18 documented as of this encounter
--- OUTSIDE RECORDS SUMMARY | 2024-11-28 17:18 | XMS_ITS | Encounter Summary ---
Author Organization [employer] Address [address] [facility] 7t [place] [address] Care Team Providers Care Supervisor Capacitor Processing Name Role Phone Alysia Holbrook MD Primary Care Provider + Reason for Visit * Reason Comments Med Refill Encounter Details Date Type Department Care Team ([facility] st Contact Info) Description 07/01/2024 Refill [facility] MEDICINE [address] [place], [place] [phone] Alysia Holbrook MD 230 [place], [place] [phone] Anxiety Social History Tobacco Use Types Packs/Day [...] t he electric, gas, oil or water [employer] threatened to shut off services in your [...] Description 12/06/2024 11:30 AM EDT Office Visit [facility] MEDICINE [address] [place] [phone] Alysia Holbrook MD [address] [place] [phone] 12/17/2024 10:00 AM EDT Clinical Support [address] [address] Jayashree Johns, CAPO documented as of this encounter Visit Diagnoses Diagnosis Anxiety Anxiety state, unspecified documented in this encounter Additional Health Concerns Assessment Noted Time PHQ-9 Depression Total Score: 22 023 10:16 AM EDT documented as of this encounter Care Teams Supervisor Capacitor Processing Relationship Specialty Start Date End Date Alysia Holbrook MD [address] [place] [phone] PCP - General Family Medicine 06/07/18 documented as of this encounter
--- OUTSIDE RECORDS SUMMARY | 2024-11-28 17:18 | XMS_ITS | Encounter Summary ---
Author Organization [employer] Address 75 [facility] 7t [place] [address] Care Team Providers Care Transportation Coordinator Name Role Phone Alysia Holbrook MD Primary Care Provider + Reason for Visit * Reason Comments Med Refill Encounter Details Date Type Department Care Team ([facility] st Contact Info) Description 06/04/2024 Refill [facility] MEDICINE 230 [place], [place] [phone] Alysia Holbrook MD 230 [place], [place] [phone] Anxiety Social History Tobacco Use Types Packs/Day Years Used Date Smoking Tobacco: Every Day Cigarettes Smokeless Tobacco: Never Alcohol Use Standard Drinks/Week Comments Never 0 (1 standard drink = 0.6 oz pur e alcohol) Depression Answer Date Recorded Patient Health Questionnaire-9 Score 22 09/21/2022 Housing Stability Answer Date Recorded What is your housing situation today? I have marshallchnia luna 01/31/[address] you [...] t he electric, gas, oil or water [employer] threatened to shut off services in your [...] 11:30 AM EDT Office Visit [facility] MEDICINE [address] [place] [phone] Alysia Holbrook MD [address] [place] [phone] 12/17/2024 10:00 AM EDT Clinical Support [address] [address] Jayashree Johns, CAPO documented as of this encounter Visit Diagnoses Diagnosis Anxiety Anxiety state, unspecified documented in this encounter Additional Health Concerns Assessment Noted Time PHQ-9 Depression Total Score: 22 023 10:16 AM EDT documented as of this encounter Care Teams Transportation Coordinator Relationship Specialty Start Date End Date Alysia Holbrook MD [address] [place] [phone] PCP - General Family Medicine 06/07/18 documented as of this encounter
--- OUTSIDE RECORDS SUMMARY | 2024-11-28 17:18 | XMS_ITS | Encounter Summary ---
Author Organization [employer] Address [address] [facility] 7t [place] [address] Care Team Providers Care Air Export Logistics Manager Name Role Phone Alysia Holbrook MD Primary Care Provider + Reason for Visit * Reason Onset Date Comments PT1 01/16/2024 Encounter Details Date Type Department Care Team ([facility] st Contact Info) Description 01/16/2024 Telephone [facility] MEDICINE 230 [place], [place] [phone] Alysia Holbrook MD 230 [place], [place] [phone] PT1 Social History Tobacco Use Types Packs/Day Years Used Date Smoking Tobacco: Every Day Cigarettes Smokeless Tobacco: Never Alcohol Use Standard Drinks/Week Comments Never 0 (1 standard drink = 0.6 oz pur e alcohol) Depression Answer Date Recorded Patient Health Questionnaire-9 Score 22 09/21/2022 Housing Stability Answer Date Recorded What is your housing situation today? I have marshall luna 01/19/[address] you li ve. Do you have problems with any of the following? None of the above 01/19/2023 Food Insecurity Answer Date Recorded Within the past 12 months, y ou worried that your food would run out before you got money to buy more: Often true 01/19/2023 Within the past 12 months,th e food you bought just didn't last and you didn't have enough money to get more: Often true Transportation Answer Date Recorded In the past 12 months, has l ack of transportation kept you from medical appts, meetings, work or from getting things needed for daily living? No 01/19/2023 Utilities Answer Date Recorded In the past 12 months, has t he electric, gas, oil or water company threatened to shut off services in your home? No 01/19/2023 Depression Answer Date Recorded Patient Health Questionnaire-2 Score 6 09/21/2022 Comments Unknown Sex and Gender Information Value Date Recorded Sex Assigned at Female 01/31/2022 10:14 AM EDT Legal Sex Female 10:14 AM EDT Gender Identity Female 01/31/2022 10:14 AM EDT Sexual Orientation Straight 01/31/2022 10 :14 AM EDT documented as of this encounter Miscellaneous Notes * Telephone Encounter - Susy Rushnig - 01/16/2024 11:08 AM EDT Patient calling requesting PT1 Home Address verified: Y/N: Yes Provider name or facility name: [facility] Facility Address: [address] [place] [address] Escort needed: Y/N: Yes Do you have a wheelchair: Y/N: No If yes- Manual or electric: n/a Visits: 1 x 3 months documented in this encounter Plan of Treatment Upcoming Encounters Date Type Department Care Team ([facility] st Contact Info) Description 12/06/2024 11:30 AM EDT Office Visit [facility] MEDICINE [address] [place] [phone] Alysia Holbrook MD [address] [place] [phone] 12/17/2024 10:00 AM EDT Clinical Support [facility] MEDICINE [address] [place] [phone] Jayashree Johns, CAPO documented as of this encounter Visit Diagnoses Not on filedocumented in this encounter Additional Health Concerns Assessment Noted Time PHQ-9 Depression Total Score: 22 023 10:16 AM EDT documented as of this encounter Care Teams Air Export Logistics Manager Relationship Specialty Start Date End Date Alysia Holbrook MD [address] [place] [phone] PCP - General Family Medicine 06/07/18 documented as of this encounter
--- OUTSIDE RECORDS SUMMARY | 2024-11-28 17:18 | XMS_ITS | Encounter Summary ---
Author Organization [employer] Address [address] [facility] 7t [place] [address] Care Team Providers Care Mold Shaker Name Role Phone Alysia Holbrook MD Primary Care Provider + Reason for Visit * Reason Onset Date Comments UTOX Pos FENT 11/28/2024 Med Refill 11/28/2024 Encounter Details Date Type Department Care Team (Late st Contact Info) Description 11/28/2024 Refill [facility] MEDICINE 230 [place], [place] [phone] Jayashree Johns RN Degeneration of lumbar intervertebral [...] as of this encounter Miscellaneous Notes * Addendum Note - Jayashree Johns RN - 11/28/2024 2:35 PM EDTAddended by: JAYASHREE JOHNS on: 11/28/2024 02:35 PM Modules accepted: Orders * Telephone Encounter - Jayashree Johns RN - 11/28/2024 2:23 PM EDT Return TC to patient, pt asking for refills of naproxen and gabapentin. [facility]. Will send request for Naproxen * Telephone Encounter - Renee Qureshi - 11/28/2024 12:52 PM EDT Tc from pt requesting a call back, pt stated she forgot to ask something. Contact pt at [phone] * Telephone Encounter - Jayashree Johns RN - 11/28/2024 12:18 PM EDT Pt had [employer] appt today UTOX was Pos FENT, sent out for confirmation. Denies any further heroine usage since she last reported to me on 11/06/24. She is requesting assistance obtaining a shower seat, flexible shower head and a working CPAP machine. Pt is scheduled for PCP visit 12/06/24 Pt is also scheduled for [employer] apppt 12/17/24. documented in this encounter Plan of Treatment Upcoming Encounters Date Type Department Care Team (Late st Contact Info) Description 12/06/2024 11:30 AM EDT Office Visit [address] [address] Alysia Holbrook MD [address] [place] [address] 12/17/2024 10:00 AM EDT Clinical Support [address] [address] Jayashree Johns, RN documented as of this encounter Visit Diagnoses Diagnosis Degeneration of lumbar intervertebral disc Degeneration of lumbar or lumbosacral intervertebral disc Arthritis of knee Unspecified arthropathy, lower leg documented in this encounter Additional Health Concerns Assessment Noted Time PHQ-9 Depression Total Score: 20 025 2:55 PM EDT documented as of this encounter Care Teams Mold Shaker Relationship Specialty Start Date End Date Alysia Holbrook MD [address] [place] [phone] PCP - General Family Medicine 06/07/18 documented as of this encounter
--- OUTSIDE RECORDS SUMMARY | 2024-11-28 17:18 | XMS_ITS | Encounter Summary ---
Author Organization [employer] Address 75 [facility] 7t [place] [address] Care Team Providers Care Dyed Yarn Operator Name Role Phone Alysia Holbrook MD Primary Care Provider + Reason for Visit * Reason Comments Med Refill Encounter Details Date Type Department Care Team (Late st Contact Info) Description 10/18/2024 Refill [facility] MEDICINE 230 [place], [place] [phone] Alysia Holbrook MD 230 [place], [place] [phone] Degeneration of lumbar intervertebral disc; Anxiety Social [...] 11:30 AM EDT Office Visit [facility] MEDICINE [address] [place] [phone] Alysia Holbrook MD [address] [place] [address] 12/17/2024 10:00 AM EDT Clinical Support [address] [address] Jayashree Johns RN documented as of this encounter Visit Diagnoses Diagnosis Degeneration of lumbar intervertebral disc Degeneration of lumbar or lumbosacral intervertebral disc Anxiety Anxiety state, unspecified documented in this encounter Additional Health Concerns Assessment Noted Time PHQ-9 Depression Total Score: 22 023 10:16 AM EDT documented as of this encounter Care Teams Dyed Yarn Operator Relationship Specialty Start Date End Date Alysia Holbrook MD [address] [place] [phone] PCP - General Family Medicine 06/07/18 documented as of this encounter
--- OUTSIDE RECORDS SUMMARY | 2024-11-28 17:18 | XMS_ITS | Encounter Summary ---
Author Organization [employer] Address [address] [place] [address] 7t [place] [address] Care Team Providers Care Dining Services Director Name Role Phone Alysia Holbrook MD Primary Care Provider + Encounter Details Date Type Department Care Team (Late st Contact Info) Description 05/16/2022 Orders Only [facility] MEDICINE [address] [place] [phone] Ramandeep Griffin LPN Social History Tobacco Use [...] Description 12/06/2024 11:30 AM EDT Office Visit [address] [address] Alysia Holbrook MD [address] [place] [phone] 12/17/2024 10:00 AM EDT Clinical Support [address] [phone] Jayashree Johns RN documented as of this encounter Visit Diagnoses Not on filedocumented in this encounter Care Teams Dining Services Director Relationship Specialty Start Date End Date Alysia Holbrook MD [address] [place] [address] [phone] PCP - General Family Medicine 06/07/18 documented as of this encounter
--- OUTSIDE RECORDS SUMMARY | 2024-11-28 17:19 | XMS_ITS | Encounter Summary ---
Author Organization [employer] Address 75 [facility] 7t [place] [address] Care Team Providers Care Wind Operations Manager Name Role Phone Alysia Holbrook MD Primary Care Provider + Reason for Visit * Reason Onset Date Comments Needs new order for sleep study 11/28/2024 Encounter Details Date Type Department Care Team ([facility] st Contact Info) Description 11/28/[address] [facility] MEDICINE 230 [place] [address] Jayashree Johns RN Needs new order for sleep study Social History Tobacco Use Types Packs/Day Years [...] encounter Miscellaneous Notes * Telephone Encounter - Jayashree Johns RN - 11/28/2024 2:19 PM EDT Pt was NCNS for sleep study at [facility] on 03/04/24. She will need new order for sleep study and completethe exam before a new CPAP can be ordered. She is scheduled to see you 12/06/24 documented in this encounter Plan of Treatment Upcoming Encounters Date Type Department Care Team (Late st Contact Info) Description 12/06/2024 11:30 AM EDT Office Visit [facility] MEDICINE [address] [place] [phone] Alysia Holbrook MD [address] [place] [phone] 12/17/2024 10:00 AM EDT Clinical Support [facility] MEDICINE [address] [place] [address] Jayashree Johns RN documented as of this encounter Visit Diagnoses Not on filedocumented in this encounter Additional Health Concerns Assessment Noted Time PHQ-9 Depression Total Score: 20 025 2:55 PM EDT documented as of this encounter Care Teams Wind Operations Manager Relationship Specialty Start Date End Date Alysia Holbrook MD [address] [place] [phone] PCP - General Family Medicine 06/07/18 documented as of this encounter
--- OUTSIDE RECORDS SUMMARY | 2024-11-28 17:19 | XMS_ITS | Encounter Summary ---
Author Organization [employer] Address [address] [facility] [address] 7t [place] [address] Care Team Providers Care Industrial Health And Safety Professor Name Role Phone Alysia Holbrook MD Primary Care Provider + Encounter Details Date Type Department Care Team (Latest Contact Info) Description 11/27/2024 Travel Social History Tobacco Use Types Packs/Day Years [...] Description 12/06/2024 11:30 AM EDT Office Visit [facility] MEDICINE [address] [place] [address] Alysia Holbrook MD [address] [place] [phone] 12/17/2024 10:00 AM EDT Clinical Support [address] [address] Jayashree Johns RN documented as of this encounter Visit Diagnoses Not on filedocumented in this encounter Additional Health Concerns Assessment Noted Time PHQ-9 Depression Total Score: 20 025 2:55 PM EDT documented as of this encounter Care Teams Industrial Health And Safety Professor Relationship Specialty Start Date End Date Alysia Holbrook MD [address] [place] [phone] PCP - General Family Medicine 06/07/18 documented as of this encounter
[2024-12-03 14:21] LABS: Fentanyl, Ur 112.9
[2024-12-03 14:22] LABS: Norfentanyl, Ur >500.0
== END 2024-11-28 17:17 | disposition home or self-care (01) ==
LOC: HO.HHCLNP 17:16
PROVIDERS: Visit Provider Internal Medicine
DX: Z79.899 Other long term (current) drug therapy (principal)
CPT/HCPCS: 80354

== ENCOUNTER 2024-12-17 16:47 | Outpatient (REF) | payer MEDICAID, SELFPAY ==
--- OUTSIDE RECORDS SUMMARY | 2024-12-17 10:00 | XMS_ITS | Encounter Summary ---
Author Organization [employer] Address [address] [place] [address] Care Team Providers Care Inside Sales Account Manager Name Role Phone Alysia Hlobrook MD Primary Care Provider + Reason for Visit * Reason Comments [facility] Encounter Details Date Type Department Care Team (Latest Contact Info) Description 12/17/2024 10:00 AM EDT Clinical Support [facility] MEDICINE [address] [place] [id number] Jayashree Johns RN Long-term current use of benzodiazepine (Primary Dx) Social History Tobacco Use Types Packs/Day Years Used Date Smoking Tobacco: Every Day Cigarettes Passive Smoke Exposure: Current Smokeless Tobacco: Never Alcohol Use Standard Drinks/Week [...] Date Recorded Patient Health Questionnaire-2 Score 6 12/04/2024 Internet Access Answer Date Recorded Internet Access [...] Progress Notes * Jayashree Johns RN - 12/17/2024 10:00 AM EDT SUBJECTIVE: Vikki Cuenca is a 44 y.o. year old female who presents for [facility] Preferred language for medical information: [place] Vikki Cuenca does report adherence to Alprazolam (Xanax) 1 mg, take 1 tablet every 8 hours PRN, may take 1 extra dose daily PRN for panic attacks - NTE 4X a week, last refilled 12/13/2024. The patient last took Alprazolam (Xanax) on: 12/17/2024 Medication effective: Yes Sleep habits: no issues Therapist: Yes PCP increased patients Xanax dose and frequency as of her last visit on 12/06/24. Pt arrived today very SOB, diaphoretic. States she gets this way after walking for a bit. C/O pain in her back and lower legs. Also shared her favorite aunt was very recently found in her home. She admits to shooting up and snorting heroine recently. 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 Last PCP visit: 12/06/2024 Controlled substance agreement signed: Controlled Substance Agreement 11/06/2024 LEVERMAN Tier: 1 Current Medications[1] Smoking status: Yes, 1/2 pack per day ETOH use: Denies Illicit substances: Admits to recent heroine use, shooting up and snorting. Marijuana use: No Lab Results Component Value Date POCTHC Negative 12/17/2024 POCCOCAINEUR Negative 12/17/2024 POCOPIATEUR Positive (A) 12/17/2024 DOAUR Negative 12/17/2024 POCAMPHETAMI Negative 12/17/2024 POCBENZODIUR Positive 12/17/2024 POCBARBSCRN Negative 12/17/2024 POCMETHADOUR Positive 12/17/2024 POCBUPSCRN Negative 12/17/2024 POCTCAUR Positive 12/17/2024 POCMDMAUR Negative 12/17/2024 POCOXYCODONE Negative 12/17/2024 POCPHENCYCUR Negative 12/17/2024 PROPOXUR Negative 12/17/2024 FENTANYLURIN Positive (A) 12/17/2024 ASSESSMENT: Encounter Diagnosis Name Primary? Long-term current use of benzodiazepine Yes PLAN: Information on acupuncture given: Previously discussed Narcan education provided: Previously discussed Narcan prescription: active Offered WIC for her c/o back pain and SOB with exertion. She declined, she said it happens all the time. Educated patient on relaxation breathing techniques to try when she starts to feel panicky or SOB. Called CRS department with patient and briefly discussed with them patients current situation. Patient stated she does not want to keep using drugs. CRS stated she should come over, that they could help her. Patient agreeable to go and see what CRS can offer for services to help. Stated she can't go today because she has an ultrasound scheduled for this morning. Stated she will go over after her next [facility] appt. Will update PCP on UTOX results and pts interest in CRS department. Vikki Cuenca will continue taking medication as prescribed and follow up at the next LEVERMAN visit or sooner if needed. Vikki Cuenca has verbalized understanding of care plan. Future Appointments Date Time Provider Department Center 01/01/2025 10:30 AM Jayashree Johns RN MEDICINE [facility] 01/16/2025 11:15 AM Alysia Holbrook MD MEDICINE [facility] Jayashree Johns RN [1] Current Outpatient Medications: ALPRAZolam (Xanax) 1 MG tablet, Take 1 tablet (1 mg) by mouth See administration instructions for 28 days. Take 1 tablet every 8 hours as needed for anxiety PLUS may take 1 additional tablet DAILY asneeded for anxiety attack, max additional dose is 4 times per week week. Do not start before December 13, 2024., Disp: 100 tablet, Rfl: 0 ALPRAZolam (Xanax) 0.5 MG tablet, Take 1 tablet (0.5 mg) by mouth if needed in the morning, at noon, and at bedtime for anxiety for up to 28 days. Do not start before November 27, 2024., Disp: 84 tablet, Rfl: 0 ammonium lactate (Amlactin) 12 % cream, APPLY TOPICALLY NEEDED FOR DRY SKIN, Disp: 385 g, Rfl: 3 betamethasone dipropionate 0.05 % cream, Apply topically 2 times daily., Disp: 45 g, Rfl: 3 cloNIDine (Catapres) 0.1 MG tablet, TAKE 2 TABLETS AT BEDTIME AND 1 TWICE DAILY IF NEEDED, Disp: 120 tablet, Rfl: 1 Elastic Bandages & Supports (Medical Compression Stockings) [facility], See Instructions, # 3 each, Maintenance, surgical, [...] per day., Disp: 180 tablet, Rfl: 3 metFORMIN XR (Glucophage-XR) 500 MG 24 hr tablet, Take 1 tablet (500 mg) by mouth with evening meal. Do not crush, chew, or split., Disp: 30 tablet, Rfl: 11 methadone (Dolophine) 10 MG/ML solution, Take 70 mL by mouth at bed time., Disp: , Rfl: naloxone (Narcan) 4 mg/0.1 mL nasal spray, Administer 1 spray (4 mg) into affected nostril(s) if needed for opioid reversal. May repeat every 2-3 minutes if needed, alternating nostrils, until medical assistance becomes available., Disp: 2 each, Rfl: 3 naproxen (Naprosyn) 500 MG tablet, Take 1 tablet (500 mg) by mouth if needed in the morning and at bedtime for mild pain., Disp: 60 tablet, Rfl: 3 QUEtiapine (SEROquel) [...] Care Team (Late st Contact Info) Description 01/01/2025 10:30 AM EDT Clinical Support [facility] [address] [place] [phone] Jayashree Johns RN 01/16/2025 11:15 AM EDT Office Visit [facility] [address] [place] [address] [phone] Alysia Holbrook MD [address] [place] [address] [phone] Scheduled Orders Name Type Priority Associated Diagnoses Orde r Schedule Drug Monitoring, Fentanyl, with Confirmation, Urine Lab Routine Long-term current use of benzodiazepine Ordered: 12/17/2024 Drug Monitoring, Opiates Expanded, Quantitative, Urine Lab Routine Long-term current use of benzodiazepine Ordered: 12/17/2024 documented as of this encounter Procedures Procedure Name Priority Date/Time Associated Diagnosis Comments POCT YOSELIN-14 URINE DRUG SCREEN Routine 12/17/2024 10:44 AM EDT Long-term current use of benzodiazepine documented in this encounter Results * (ABNORMAL) POCT YOSELIN-14 Urine Drug Screen (12/17/2024 10:44 AM EDT) THC Negative Negative Cocaine Screen, Urine Negative Negative Opiate Screen, Urine Positive(A) Negative Methamphetamine Screen Urine Negative Negative Amphetamine Screen, Urine Negative Negative Benzodiazepines Screen, Urine Positive Negative Barbiturate Screen, Urine Negative Negative Methadone Screen, Urine Positive Negative Buprenophine Screen, Urine Negative Negative TCA, Urine Positive Negative MDMA Urine Negative Negative ng/mL Oxycodone Screen, Urine Negative Negative Phencyclidine (PCP), Urine Negative Negative Propoxyphene, Urine Negative Negative Fentanyl, Urine Positive(A) Negative Urine Urine specimen obtained by clean catch procedure / Unknown 12/17/2024 10:44 AM EDT Jayashree Grijalva, RN - 12/17/2024 10:44 AM EDT UTOX cup Lot#[id number] Exp. 01/07/26 Internal Pass Control Alysia Holbrook MD POINT OF CARE TEST ENTER /EDIT ORDERABLES Final Result documented in this encounter Visit Diagnoses Diagnosis Long-term current use of benzodiazepine- Primary documented in this encounter Additional Health Concerns Assessment Noted Time PHQ-9 Depression Total Score: 20 025 2:55 PM EDT documented as of this encounter Care Teams Inside Sales Account Manager Relationship Specialty Start Date End Date Alysia Holbrook MD [address] [place] [phone] PCP - General Family Medicine 06/07/18 documented as of this encounter
--- OUTSIDE RECORDS SUMMARY | 2024-12-17 19:10 | XMS_ITS | Clinical Summary ---
Author Organization [employer] Address [address] [facility] [address] [place] [address] Care Team Providers Care Honing Machine Set Up Operator Tool Name Role Phone Alysia Holbrook MD Primary [...] mL by mouth at bed time. Active lisinopril-hydro CHLOROthiazide 20-12.5 MG tabletIndication s:Essential hypertension Take 2 tablets by mouth Once per day. 180 tablet 3 024 2024 Active betamethasone dipropionate 0.05 % cream Apply topically 2 times daily. 45 g 3 024 Active QUEtiapine (SEROquel) 50 MG tabletIndication s:Anxiety Take 1 tablet (50 mg) by mouth if needed in the morning and at bedtime (anxiety). 60 tablet 1 025 Active cloNIDine (Catapres) 0.1 MG tabletIndication s:Anxiety TAKE 2 TABLETS AT BEDTIME AND 1 TWICE DAILY IF NEEDED 120 tablet 1 025 Active FLUoxetine (PROzac) 20 MG capsuleIndicatio ns:Recurrent major depressive episodes (CMS/HCC) Take 3 capsules (60 mg) by mouth in the morning. 90 capsule 1 025 Active QUEtiapine (SEROquel) 400 MG tabletIndication s:Schizoaffectiv e disorder, bipolar type (CMS/HCC) TAKE 1 AND 1/2 TABLET BY MOUTH AT BEDTIME 45 tablet 1 025 Active ammonium lactate (Amlactin) 12 % cream APPLY TOPICALLY NEEDED FOR DRY SKIN 385 g 3 025 Active gabapentin (Neurontin) 600 MG tabletIndication s:Degeneration of lumbar intervertebral disc,Anxiety TAKE 1 TABLET BY MOUTH THREE TIMES A DAY 90 tablet 1 025 Active naloxone (Narcan) 4 mg/0.1 mL nasal spray Administer 1 spray (4 mg) into affected nostril(s) if needed for opioid reversal. May repeat every 2-3 minutes if needed, alternating nostrils, until medical assistance becomes available. 2 each 025 2025 Active ALPRAZolam (Xanax) 0.5 MG tabletIndication s:Anxiety Take 1 tablet (0.5 mg) by mouth if needed in the morning, at noon, and at bedtime for anxiety for up to 28 days. Do not start before November 27, 2024. 84 tablet 025 2024 Active naproxen (Naprosyn) 500 MG tabletIndication s:Degeneration of lumbar intervertebral disc,Arthritis of knee Take 1 tablet (500 mg) by mouth if needed in the morning and at bedtime for mild pain. 60 tablet 3 025 Active metFORMIN XR (Glucophage-XR) 500 MG 24 hr tablet Take 1 tablet (500 mg) by mouth with evening meal. Do not crush, chew, or split. 30 tablet 11 025 2025 Active ALPRAZolam (Xanax) 1 MG tabletIndication s:Anxiety Take 1 tablet (1 mg) by mouth See administration instructions for 28 days. Take 1 tablet every 8 hours as needed for anxiety PLUS may take 1 additional tablet DAILY as needed for anxiety attack, max additional dose is 4 times per week week. Do not start before December 13, 2024. 100 tablet 025 2024 Active naproxen (Naprosyn) 500 MG tabletIndication s:Degeneration of lumbar intervertebral disc,Arthritis of knee TAKE 1 TABLET BY MOUTH TWICE DAILY NEEDED FOR PAIN 60 tablet 3 025 2024 Discontinued(R eorder (will not trigger notification to Pharmacy)) ALPRAZolam (Xanax) 0.5 MG tabletIndication s:Anxiety Take 1 tablet (0.5 mg) by mouth if needed in the morning, at noon, and at bedtime for anxiety for up to 28 days. 84 tablet 025 2024 Discontinued(R eorder (will not trigger notification to Pharmacy)) cefadroxil (Duricef) 500 MG capsule Take 1 capsule (500 mg) by mouth 2 times daily for 7 days. 14 capsule 025 2024 Active Problems Problem Noted Date Diagnosed Date Class 3 severe obesity due t o excess calories with serious comorbidity and body mass index (BMI) of 50.0 to 59.9 in adult 12/06/2024 Assessment & Plan (12/06/2024 3:02 PM EDT): There is strongly recommended regarding weight reduction to improve other comorbidities including low back pain, BRAYDEN, venous stasis, IFG and hypertension. Discussed re weight reduction options including exercise, life style modifications, diet. Recommended to decrease soda and sugary beverage consumption, increase protein intake with meals (at least 1 portion of protein with each meal) to assist with satiety, increase dietary fiber. Recommended at least 150 min/week of moderate intensity exercise. I will Rx metformin XR 500 mg/day, Topamax is contraindicated as patient is already gabapentin and may interact, will avoid phentermine due to uncontrolled anxiety. Follow-up with me in 6 weeks AIDEN (generalized anxiety disorder) 11/07/2024 Assessment & Plan (12/06/2024 2:51 PM EDT): Patient also has PTSD and history of severe depression she we will continue to see mental health prescriber at [facility], continue Seroquel, clonidine, fluoxetine gabapentin. Increase alprazolam to 1 mg 3 times daily and to 1 mg as needed panic attacks, max 4 times per week, she may need to call earlier in 1 or 2 weeks if she runs out of the 0.5 mg Rx. Continue close follow-up with WATCH REPAIRER APPRENTICE nurse. Discussed about avoiding use of recreational substances or alcohol including THC products. Patient is safe at home and is able to reach out for safety, she has crisis number. Long-term current use of benzodiazepine 11/07/19 25 Assessment & Plan (12/06/2024 2:47 PM EDT): Patient has been on Xanax 1 mg 3 times daily + PRN panic attacks for longer than 2 years, she did not do well on sudden taper. I will continue to optimize her dose up to 1 mg 3 times daily +1 mg as needed panic attacks (max 4 times per week). Continue close follow-up with [facility] prescriber, continue fluoxetine 60 mg, gabapentin 600 mg 3 times daily, Seroquel and methadone. We discussed about avoiding recreational substances or alcohol, she will reach out to online health and fitness coach or psychotherapist. She feels safe at home and is able to reach out for safety, she has crisis number. She has Narcan Rx. We have done [employer] education re benzos side effects including dizziness, somnolence, hypotesion sxs, dependance, etc. Patient is aware of the importance of avoiding any activity that requires vigilance while taking these meds including driving. We have discussed re avoiding diversion of medication, including giving pills to relatives. Patient is to keep medications in a safe place and is aware that rx will not be replaced if lost or stolen. I will hold off on urine tox today as it may still be positive due to heroin use within the past 4 weeks. Discussed importance of close follow-up with W[facility] REPAIRER APPRENTICE program. History of incisional hernia repair 02/09/2024 Assessment & Plan (02/09/2024 3:33 PM EST): On 2022, doing well. Uncomplicated opioid dependence 02/09/2024 Assessment & Plan (12/06/2024 2:49 PM EDT): On methadone + using street opiates on/off, last time 1 month ago. Will hold off on repeating urine tox at least 2 more weeks. Advised to discuss with methadone provider re relapse, consider increase methadone so that she doesn't have cravings Advised re relationship between relapse and worsening of LBP. Patient has Narcan at home Assessment & Plan (02/09/2024 3:36 PM EST): On methadone + using street opiates on/off Advised to discuss with methadone provider re relapse, increase methadone so that she doesn't have cravings Advised reo relationship between relapse and worsening of LBP. FU with methadone providers. Venous stasis dermatitis of both lower extremiti es 01/19/2023 Assessment & Plan (12/06/2024 2:47 PM EDT): She seems to have cellulitis today, unclear if she also has DVT. Rx Duricef x 1 week and refer to vascular surgery We discussed about weight reduction Assessment & Plan (01/19/2023 2:13 [...] has family support Fu with counselor at [facility] Pt has crisis number Skin ulcer of [...] sleep apnea syndrome 08/03/2022 Assessment & Plan (12/06/2024 2:52 PM EDT): She is off CPAP, will order sleep study Assessment & Plan (02/09/2024 3:23 PM EST): Last sleep study was on 2010. I will re order new sleep study with titration She needs to restart use of CPAP to decreased morbidity and mortality. Advised re weight reduction Assessment & Plan (01/19/2023 2:13 PM EDT): Ordered on 09/2022, will fu with [facility] to schedule keanu Pt needs to [...] lumbar intervertebral disc 08/29 Assessment & Plan (12/06/2024 2:52 PM EDT): Continue Naproxen prn, declined PT or pain management referral at this time. Advised re weight reduction, biofeedback. Follow-up with me in 6 weeks Assessment & Plan (02/09/2024 3:34 PM EST): [...] 08/29/2018 Essential hypertension 12/11/2015 Assessment & Plan (12/06/2024 2:48 PM EDT): Controlled. Compliant w/meds Continue lisinopril/hctz same dose Counseled re low salt diet/increase moderate physical activity. Check home BP BIW and prn CP/ROMERO/CLIFTON Advised to quit smoking Follow-up with me in 6 months with labs Assessment & Plan (02/09/2024 3:40 PM EST): [...] (02/09/2024 3:37 PM EST): Previously seen at [facility], provider left. Continue Seroquel, clonidine and fluoxetine , I will continue refilling rx until she's seen by a new provider, will hold off on anew referral now until next appt. She feels safe at home and is able to reach for safety to her methadone counselors. Encounters * This document contains information received from the source organization and may not represent a complete record from that organization. Date Type Department Care Team Description 12/17/2024 10:00 AM EDT Clinical Support [facility] [address] [place] [phone] Jayashree Johns RN Long-term current use of benzodiazepine (Primary Dx) 12/17/2024 Telephone [facility] [address] [place] [phone] Jayashree Johns, RN UTOX Pos FENT & MOP 12/17/2024 Travel 12/13/2024 Telephone [facility] [address] [place] [address] Alysia Holbrook MD Medication Question; Review Xanax refill date with [facility] 12/13/2024 Refill [facility] [address] [place] [address] Alysia Holbrook MD Anxiety 12/10/2024 Refill [facility] [address] [place] [address] Alysia Holbrook MD Anxiety (Primary Dx) 12/10/2024 Travel 12/09/2024 Telephone [facility] [address] [place] [address] Alysia Holbrook MD DME Fax 12/06/2024 11:30 AM EDT Office Visit [facility] [address] [place] [address] Alysia Holbrook MD Leg edema, left (Primary Dx); Venous stasis dermatitis of both lower extremities; Obstructive sleep apnea syndrome; Long-term current use of benzodiazepine; Essential hypertension; Degeneration of intervertebral disc of lumbar region with discogenic back pain and lower extremity pain; Uncomplicated opioid dependence (CMS/HCC); AIDEN (generalized anxiety disorder); Class 3 severe obesity due to excess calories with serious comorbidity and body mass index (BMI) of 50.0 to 59.9 in adult; Dietary counseling; Exercise counseling 12/06/2024 Travel 12/05/2024 Telephone [facility] [address] [place] [address] Alysia Holbrook MD Chart Prep 12/02/2024 Travel 11/29/2024 Travel 11/28/2024 10:30 AM EDT Clinical Support [facility] [address] [facility] [place] [address] Jayashree Johns RN Long-term current use of benzodiazepine (Primary Dx) 11/28/2024 Telephone [facility] [place] [address] Jayashree Johns RN Needs new order for sleep study 11/28/2024 Refill [facility] [place] [address] Jayashree Johns, RN Degeneration of lumbar intervertebral disc; Arthritis of knee 11/27/2024 Travel 11/25/2024 Refill [facility] [place] [address] Alysia Holbrook MD Degeneration of lumbar intervertebral disc; Arthritis of knee 11/25/2024 Refill [facility] [address] [facility] [place] [address] Jayashree Johns RN Anxiety 11/20/2024 Telephone [facility] [address] [facility] [place] [address] Jayashree Johns RN Pt cancelled [facility] REPAIR[facility] [employer]PRENTICE appt 11/20/24 11/13/2024 Travel 11/11/2024 Refill [facility] [address] [facility] [place] [address] Alysia Holbrook MD Degeneration of lumbar intervertebral disc; Arthritis of knee 11/06/2024 10:00 AM EDT Clinical Support [facility] [address] [place] [address] Jayashree Johns RN Long-term current use of benzodiazepine (Primary Dx) 11/06/2024 Refill [facility] [address] [place] [address] Jayashree Johns RN 11/06/2024 Travel 10/30/2024 Refill [facility] [address] [place] [address] Alysia Holbrook MD Anxiety; Degeneration of lumbar intervertebral disc 10/30/2024 Refill [facility] [address] [place] [address] Alysia Holbrook MD Degeneration of lumbar intervertebral disc; Anxiety 10/30/2024 Refill [facility] [address] [place] [address] Alysia Holbrook MD Anxiety 10/28/2024 Telephone [facility] [address] [place] [address] Jayashree Johns RN WATCH REPAIRER APPRENTICE Tier ? 10/21/2024 Refill [facility] [address] [place] [address] Alysia Holbrook MD 10/18/2024 Refill [facility] [address] [place] [phone] Alysia Holbrook MD Degeneration of lumbar intervertebral disc; Anxiety 10/01/2024 Refill [facility] [address] [place] [address] Alysia Holbrook MD Anxiety 09/18/2024 Orders Only [facility] [address] [place] [address] Alysia Holbrook MD Screening for colorectal cancer (Primary Dx); Screening for colon cancer 09/17/2024 Telephone [facility] [address] [place] [phone] Alysia Holbrook MD Cologuard from Last 3 Months Immunizations Immunization Administration Dates Next Due Influenza injectable quadriv alent preservative free 01/19/2023,02/07/2022,11/27/2018,2014 Influenza, IIV3, injectable 10/03/2011 Influenza, Split (incl. ankur fied surface antigen) 04/29/2013 Influenza, seasonal, injecta ble, preservative free 01/26/2016 Tdap 07/25/2016 Social History Tobacco Use Types Packs/Day Years Used Date Smoking Tobacco: Every Day Cigarettes Passive Smoke Exposure: Current Smokeless Tobacco: Never Tobacco Cessation:Ready to Q [...] t he electric, gas, oil or water [employer] threatened to shut off services in your [...] Sign Reading Time Taken Comments Blood Pressure 136/72 12/06/2024 11:29 AM EDT Pulse 80 12/06/2024 11:29 AM EDT Temperature 36.6 C (97.8 F) 12/06/2024 11:29 AM EDT Respiratory Rate 24 12/06/2024 11:29 AM EDT Oxygen Saturation 88% 01/19/2023 12:28 PM EDT Inhaled Oxygen Concentration - - Weight 169 kg (373 lb 3.2 oz) 12/06/2024 11:29 A M EDT Height 171.5 cm (5' 7.5 ) 12/06/2024 11:29 AM ED T Body Mass Index 57.59 12/06/2024 11:29 AM EDT Plan of Treatment Upcoming Encounters Date Type Department Care Team (Late st Contact Info) Description 01/01/2025 10:30 AM EDT Clinical Support [facility] [address] [place] [phone] Jayashree Johns RN 01/16/2025 11:15 AM EDT Office Visit [facility] [address] [place] [phone] Alysia Holbrook MD [address] [place] [phone] Health Maintenance Due Date Last Done Comments [...] PCV) 1997 Pap Smear 1999 Mammogram 2018 Cervical Cancer Screening 12/12/2023 HPV/Cotest 12/12/2023 12/11/2018, 11/10/2016 COVID-19 Vaccine ( season) 2024 02/07/2022, 08/03/2020, 07/06/2020 Influenza Vaccine (#1) 2024 3, 02/07/2022, 11/27/2018, Additional history exists SDOH Screening 01/30/2025 01/31/2024 Family Planning (PISQ) 02/08/2025 02/09/2024 Depression Monitoring 06/03/2025 12/04/2024, 025 Disability Screening 12/02/2025 12/02/2024 Tobacco Screening 12/06/2025 12/06/2024 DTaP/Tdap/Td Vaccines (2 - Td or Tdap) [...] AM EDT Long-term current use of benzodiazepine POCT YOSELIN-14 URINE DRUG SCREEN Routine 11/28/2024 12:14 PM EDT Long-term current use of benzodiazepine DRUG MONITOR, FENTANYL, W/CONF, URINE Routine 11/28/2024 10:00 AM EDT Long-term current use of benzodiazepine POCT [...] Urine Drug Screen (12/17/2024 10:44 AM EDT) Only the most recent of3 resultswithin the time period is included. THC [...] / Unknown 12/17/2024 10:44 AM EDT Jayashree Grijalva RN - 12/17/2024 10:44 AM EDT UTOX cup Lot#[id number] Exp. 01/07/26 Internal Pass Control Alysia Holbrook MD POINT OF CARE TEST ENTER /EDIT ORDERABLES Final Result * Drug Monitoring, Fentanyl, with Confirmation, Urine (11/28/2024 10:00 AM EDT) Fentanyl, Ur 112.9 [facility] Comment:CUTOFF 0.5NG/ML Norfentanyl, Ur >500.0 [facility] Comment:CUTOFF 0.5NG/MLPERFO RMING SITE:[facility], [address] [place], [place] [phone] Engineer Of System Development: CRUZ AKINS MD, CLIA:[id number] Fentanyl Note SEE NOTE [facility] Comment:This drug testing is for medical treatment only. Analysiswas performed as non-forensic testing and these resultsshould be used only by healthcare providers to renderdiagnosis or treatment, or to monitor progress of medicalconditions.Fentanyl Notes:Fentanyl, Norfentanyl detected is consistent with the use ofthe drug Fentanyl.LDT Notes:Confirmation tests were developed and their analyticalperformance characteristics have been determined by [employer]. It has not been cleared or approved by the FDA.This assay has been validated pursuant to the CLIAregulations and is used for clinical purposes.Healthcare Providers needing Interpretation assistance,please contact us at [phone] ( ) M-F,8am to 10pm EST Urine (Urine, Random) 11/28/2024 10:00 AM EDT 11/28/2024 5:17 PM EDT us Alysia Holbrook MD LAB URINE ORDERABLES Fin al Result [facility] [address] [place] [address] [phone] * Drug Monitoring, Opiates Expanded, Quantitative, Urine (11/06/2024 10:00 AM EDT) Codeine, Urine NEGATIVE [facility] Comment:[id number] ng/mL Hydrocodone, Ur NEGATIVE [facility] Comment:[id number] ng/mL Oxycodone, Urine NEGATIVE [facility] Comment:[id number] ng/mL Oxycodone GC/MS Note SEE NOTE [facility] Comment:LDT Notes:Confirmati on tests were developed and their analyticalperformance characteristics have been determined by [employer]. It has not been cleared orapproved by the FDA. This assay has been validated pursuantto the CLIA regulations and is used for clinical purposes.Healthcare Providers needing Interpretation assistance,please contact us at [phone] ( ) M-F,8am to 10pm EST Morphine, Urine 824 [facility] Comment:[id number] ng/mL Hydromorphone, Urine NEGATIVE [facility] Comment:[id number] ng/mL Oxymorphone, Urine NEGATIVE [facility] Comment:[id number] ng/mL Opiates GC/MS Note SEE NOTE [facility] Comment: NOTES AND COMMENTSThis drug [...] their analyticalperformance characteristics have been determined by [employer]. It has not been cleared orapproved by the FDA. This assay has been validated pursuantto the CLIA regulations and is used for clinical purposes.Healthcare Providers needing Interpretation assistance,please contact us at [phone] ( ) M-F,8am to 10pm ESTPERFORMING SITE:[facility], [address] [place] [phone] Engineer Of System Development: CRUZ AKINS MD, CLIA:[id number] Norhydrocodone, Urine NEGATIVE [facility] Comment:[id number] ng/mL Noroxycodone, Urine NEGATIVE [facility] Comment:[id number] ng/mL Urine (Urine, Random) 11/06/2024 10:00 AM EDT 11/06/2024 6:10 PM EDT us Alysia Holbrook MD LAB URINE ORDERABLES Fin al Result [facility] [address] [place] [phone] [phone] * (ABNORMAL) LIPID PANEL, STANDARD (09/28/2021 10:56 AM EDT) Chol/HDLC Ratio 3.2 <5.0 (calc) [facility] Cholesterol, Total 112 <200 mg/dL [facility] HDL Cholesterol 35(L) > OR = 50 mg/dL [facility] LDL Cholesterol 57 mg/dL (calc) [facility] Comment: Reference range: <100 Desirable range <100 mg/dL for primary prevention; <70 mg/dL for patients with CHD or diabetic patients with > or = 2 CHD risk factors. LDL-C is now calculated using the Nasir calculation, which is a validated novel method providing better accuracy than the Friedewald equation in the estimation of LDL-C. Surinder KING et al. AUBREY. 2013;310(19): 5294-1642 (http://education.[employer]le[employer]/faq/DXO106) Non-HDL Cholesterol 77 <130 mg/dL (calc) [facility] Comment: For patients with diabetes plus 1 major ASCVD risk factor, treating to a non-HDL-C goal of <100 mg/dL (LDL-C of <70 mg/dL) is considered a therapeutic option. Triglycerides 110 <150 mg/dL [facility] 09/28/2021 10:5 6 AM EDT us Alysia Holbrook MD LAB BLOOD ORDERABLES Fin al Result [facility] [address] * HPV E6/E7 RFLX RICK 16 18/45 (12/11/2018 10:35 AM EDT) HPV 18/45 RNA Test not performed [facility] HPV mRNA E6/E7 Not Detected NOT DETECTED [facility] Comment: This test was performed using the APTIMA(R) HPV Assay ([employer] This assay detects E6/E7 viral messenger RNA (mRNA) from 14 high-risk HPV types (16,18,31,33,35,39,45,51, 52,56,58,59,66,68). For additional information please refer to: http://education.[employer]/faq/PJE480b2 (This link is being provided for informational/ educational purposes only.) The analytical performance characteristics of this assay have been determined by [employer] [place], [place]. The modifications have not been cleared or approved by the FDA. This assay has been validated pursuant to the CLIA regulations and is used for clinical purposes. Please note: Effective 12/14/2015, HPV testing will be performed using [employer]'s APTIMA test which targets mRNA. Detecting mRNA instead of DNA, as in older methods, offers significant improvements in specificity. ADDITIONAL TESTING Not indicated () [facility] Comment: Test Performed by [employer] [place], [facility], [address] [place], [place] Wander Monsalve M.D., Ph.D., Director of Laboratories , CLIA [id number] HPV 16 RNA Test not performed [facility] 12/11/2018 10:3 5 AM EDT us Alysia Holbrook MD HISTORICAL/NON ORDERABLE LABS Final Result [facility] [address] from Last 3 Months or Most Recently Relevant to Health Maintenance Insurance [employer] Care Teams Honing Machine Set Up Operator Tool Relationship Specialty Start Date End Date Alysia Holbrook MD [address] [place] [phone] PCP - General Family Medicine 06/07/18
--- OUTSIDE RECORDS SUMMARY | 2024-12-17 19:10 | XMS_ITS | Encounter Summary ---
Author Organization [employer] Address 75 [facility] 7t [place] [address] Care Team Providers Care Tandem Operator Name Role Phone Alysia Holbrook MD Primary Care Provider + Reason for Visit * Reason Comments Med Refill Encounter Details Date Type Department Care Team ([facility] st Contact Info) Description 12/13/2024 Refill [facility] 230 [place], [place] [phone] Alysia Holbrook MD 230 [place], [place] [phone] Anxiety Social History Tobacco Use Types Packs/Day [...] Description 01/01/2025 10:30 AM EDT Clinical Support [facility] [address] [place] [address] Jayashree Johns RN 01/16/2025 11:15 AM EDT Office Visit [facility] [address] [place] [address] 28434 Alysia Holbrook MD [address] [place] [address] [phone] documented as of this encounter Visit Diagnoses Diagnosis Anxiety Anxiety state, unspecified documented in this encounter Additional Health Concerns Assessment Noted Time PHQ-9 Depression Total Score: 20 025 2:55 PM EDT documented as of this encounter Care Teams Tandem Operator Relationship Specialty Start Date End Date Alysia Holbrook MD [address] [place] [address] [phone] PCP - General Family Medicine 06/07/18 documented as of this encounter
--- OUTSIDE RECORDS SUMMARY | 2024-12-17 19:10 | XMS_ITS | Encounter Summary ---
Author Organization [employer] Address [address] [place] [address] 7t [place] [address] Care Team Providers Care Diesel Mechanic Apprentice Name Role Phone Alysia Holbrook MD Primary Care Provider + Encounter Details Date Type Department Care Team (Late st Contact Info) Description 04/15/2022 Orders Only [facility] [address] [place] [phone] Ramandeep Griffin LPN Social History Tobacco Use [...] Description 01/01/2025 10:30 AM EDT Clinical Support [facility] [address] [place] [address] 78602 Jayashree Johns RN 01/16/2025 11:15 AM EDT Office Visit [facility] [address] [place] [address] 94[address] Alysia Holbrook MD [address] [place] [address] [phone] documented as of this encounter Visit Diagnoses Not on filedocumented in this encounter Care Teams Diesel Mechanic Apprentice Relationship Specialty Start Date End Date Alysia Holbrook MD [address] [place] [address] [phone] PCP - General Family Medicine 06/07/18 documented as of this encounter
--- OUTSIDE RECORDS SUMMARY | 2024-12-17 19:10 | XMS_ITS | Encounter Summary ---
Author Organization [employer] Address [address] [facility] 7t [place] [address] Care Team Providers Care English Lecturer Name Role Phone Alysia Holbrook MD Primary Care Provider + Reason for Visit * Reason Onset Date Comments PT1 01/16/2024 Encounter Details Date Type Department Care Team ([facility] st Contact Info) Description 01/16/2024 Telephone [facility] 230 [place], [place] [phone] Alysia Holbrook MD 230 [place], [place] [phone] PT1 Social History Tobacco Use Types Packs/Day [...] Miscellaneous Notes * Telephone Encounter - Susy Rushing - 01/16/2024 11:08 AM EDT Patient calling requesting PT1 Home Address verified: Y/N: Yes Provider name or facility name: [facility] Facility Address: [address] [place] [address] Escort needed: Y/N: Yes Do you have a wheelchair: Y/N: No If yes- Manual or electric: n/a Visits: 1 x 3 months documented in this encounter Plan of Treatment Upcoming Encounters Date Type Department Care Team ([facility] st Contact Info) Description 01/01/2025 10:30 AM EDT Clinical Support [facility] [address] [place] [address] Jayashree Johns RN 01/16/2025 11:15 AM EDT Office Visit [facility] [address] [place] [address] Alysia Holbrook MD [address] [place] [phone] documented as of this encounter Visit Diagnoses Not on filedocumented in this encounter Additional Health Concerns Assessment Noted Time PHQ-9 Depression Total Score: 22 023 10:16 AM EDT documented as of this encounter Care Teams English Lecturer Relationship Specialty Start Date End Date Alysia Holbrook MD [address] [place] [address] [phone] PCP - General Family Medicine 06/07/18 documented as of this encounter
--- OUTSIDE RECORDS SUMMARY | 2024-12-17 19:10 | XMS_ITS | Encounter Summary ---
Author Organization [employer] Address [address] [place] [address] 7t [place] [address] Care Team Providers Care Tipple Worker Name Role Phone Alysia Holbrook MD Primary Care Provider + Encounter Details Date Type Department Care Team (Late st Contact Info) Description 05/16/2022 Orders Only [facility] [address] [place] [address] 23751 Ramandeep Griffin LPN Social History Tobacco Use [...] Description 01/01/2025 10:30 AM EDT Clinical Support [address] [address] Jayashree Johns RN 01/16/2025 11:15 AM EDT Office Visit [facility] [address] [place] [address] Alysia Holbrook MD [address] [place] [address] [phone] documented as of this encounter Visit Diagnoses Not on filedocumented in this encounter Care Teams Tipple Worker Relationship Specialty Start Date End Date Alysia Holbrook MD [address] [place] [address] [phone] PCP - General Family Medicine 06/07/18 documented as of this encounter
--- OUTSIDE RECORDS SUMMARY | 2024-12-17 19:10 | XMS_ITS | Encounter Summary ---
Author Organization [employer] Address 75 [facility] 7t [place] [address] Care Team Providers Care Manual Arts Therapy Teacher Name Role Phone Alysia Holbrook MD Primary Care Provider + Reason for Visit * Reason Comments Med Refill Encounter Details Date Type Department Care Team ([facility] st Contact Info) Description 10/30/2024 Refill [facility] 230 [place], [place] [phone] Alysia Holbrook MD 230 [place], [place] [phone] Anxiety; Degeneration of lumbar intervertebral disc Social [...] Description 01/01/2025 10:30 AM EDT Clinical Support [address] [address] Jayashree Johns RN 01/16/2025 11:15 AM EDT Office Visit [facility] [address] [place] [address] Alysia Holbrook MD [address] [place] [address] documented as of this encounter Visit Diagnoses Diagnosis Anxiety Anxiety state, unspecified Degeneration of lumbar intervertebral disc Degeneration of lumbar or lumbosacral intervertebral disc documented in this encounter Additional Health Concerns Assessment Noted Time PHQ-9 Depression Total Score: 22 023 10:16 AM EDT documented as of this encounter Care Teams Manual Arts Therapy Teacher Relationship Specialty Start Date End Date Alysia Holbrook MD [address] [place] [address] [phone] PCP - General Family Medicine 06/07/18 documented as of this encounter
--- OUTSIDE RECORDS SUMMARY | 2024-12-17 19:10 | XMS_ITS | Encounter Summary ---
Author Organization [employer] Address [address] [place] [address] 7t [place] [address] Care Team Providers Care Hose Operator Name Role Phone Alysia Holbrook MD Primary Care Provider + Reason for Visit * Reason Comments Med Refill Encounter Details Date Type Department Care Team (Late st Contact Info) Description 08/09/2022 Refill [facility] [address] [place] [address] [phone] Alysia Holbrook MD [address] [place] [address] [phone] Arthritis of knee Social History Tobacco Use [...] Description 01/01/2025 10:30 AM EDT Clinical Support [facility] [address] [place] [address] [phone] Jayashree Johns, CAPO 01/16/2025 11:15 AM EDT Office Visit [facility] [address] [place] [address] [phone] Alysia Holbrook MD [address] [place] [address] [phone] documented as of this encounter Visit Diagnoses Diagnosis Arthritis of knee Unspecified arthropathy, lower leg documented in this encounter Care Teams Hose Operator Relationship Specialty Start Date End Date Alysia Holbrook MD [address] [place] [phone] PCP - General Family Medicine 06/07/18 documented as of this encounter
--- OUTSIDE RECORDS SUMMARY | 2024-12-17 19:10 | XMS_ITS | Clinical Summary ---
Author Organization [facility] Address [address] [place] [address] Care Team Providers Care Group Teacher Name Role Phone Unavailable Primary Care Provider Unavailabl e Source Comments PLEASE NOTE, if this patient is a minor, it may be UNLAWFUL to discuss sensitive information that is contained in these records (such as FAMILY PLANNING, MENTAL HEALTH or SUBSTANCE ABUSE) with the minor patient's parent or other person without the patient's specific authorization.[facility] Medications ALPRAZolam (XANAX) 0.5 mg tablet Take 0.5 mg by mouth 3 (three) times daily as needed. 5 12/26/19 25 Active amLODIPine (NORVASC) 5 mg tablet Take 5 mg by mouth once daily. 4 Active cloNIDine (CATAPRES) 0.1 mg tablet Take 0.1 mg by mouth TAKE 2 TABLETS EVERY NIGHT AT BEDTIME AND 1 TABLET TWICE DAILY NEEDED. Active FLUoxetine (PROZAC) 20 mg capsule Take 60 mg by mouth once daily. 5 Active gabapentin (NEURONTIN) 600 mg tablet Take 600 mg by mouth 3 (three) times daily. Active methadone (DOLOPHINE) 10 mg/mL concentrated solution Take 70 mL by mouth every morning With 30 ml at HS . Active naloxone (NARCAN) 4 mg/actuation nasal spray Place 4 mg into the nostril(s) as needed for opioid reversal. 5 11/07/19 26 Active naproxen (NAPROSYN) 500 mg tablet Take 500 mg by mouth 2 (two) times daily as needed. 5 Active QUEtiapine (SEROQUEL) 50 mg tablet Take 50 mg by mouth 2 (two) times daily as needed. 5 Active QUEtiapine (SEROQUEL) 400 mg tablet Take 600 mg by mouth nightly at bedtime. Active Active Problems Problem Noted Date Diagnosed Date Long-term current use of benzodiazepine 11/07/19 25 History of incisional hernia repair 02/09/2024 Uncomplicated opioid dependence ([facility]) 02/09/2024 Assessment & Plan (12/03/2024 1:55 PM EDT): Continue Methadone Arthritis of knee 01/19/2023 AIDEN (generalized anxiety disorder) 01/19/2023 Assessment & Plan (12/03/2024 4:52 PM EDT): Assessment: Patient reports worsening anxiety symptoms despite long-term medication regimen. Symptoms include agoraphobia, social isolation, and difficulty with daily activities such as shopping. Patient expresses desire to return to original alprazolam dosage of 1 mg TID Plan: - Patient to discuss alprazolam dosage adjustment with PCP on December 06, she recently picked up a 30 day RX. - Consider referral for therapy to address ongoing anxiety PCOS (polycystic ovarian syndrome) 01/19/2023 Venous stasis dermatitis of both lower extremiti es 01/19/2023 Arthropathy of lumbar facet joint 08/03/2022 Chronic constipation 08/03/2022 Complicated varicose veins 08/03/2022 Dyspnea 08/03/2022 Foot pain 08/03/2022 IFG (impaired fasting glucose) 08/03/2022 Nicotine dependence 08/03/2022 Obstructive sleep apnea syndrome 08/03/2022 Snoring 08/03/2022 Stasis ulcer ([facility]) 08/03/2022 Umbilical hernia 08/03/2022 Vaginal discharge 08/03/2022 Vascular insufficiency 08/03/2022 Amenorrhea 08/29/2018 Carpal tunnel syndrome 08/29/2018 Degeneration of lumbar intervertebral disc 08/29 Edema of lower extremity 08/29/2018 Inflammatory dermatosis 08/29/2018 Essential hypertension 12/11/2015 Schizoaffective disorder, bipolar type ([facility] 12/11/2015 Assessment & Plan (12/03/2024 4:47 PM EDT): Schizoaffective Disorder, Bipolar Type Assessment: Patient was diagnosed with schizoaffective disorder in 2005, presenting with auditory hallucinations. Current medication regimen includes fluoxetine, quetiapine, and alprazolam. Patient reports mood swings and intermittent auditory hallucinations, though not currently experiencing them. Sleep disturbances are present, with difficulty maintaining sleep despite medication. Plan: - Continue current medication regimen, no refills needed today. - Fluoxetine - Quetiapine 400 mg - Quetiapine 50 mg - Alprazolam 0.5 mg - Clonidine 0.1 mg - Follow-up appointment scheduled for January 02 Encounters Date Type Department Care Team Description 12/03/2024 1:00 PM EDT Behavioral Health Visit [facility] [address] [place] [phone] Macy Barros APRN from Last 3 Months Immunizations Immunization Administration Dates Next Due Flu, Preservative Free 01/19/2023,2021,11/27/2018,2014 INFLUENZA, SEASONAL, INJECTABLE 10/03/2011 INFLUENZA, SEASONAL, INJECTA BLE, PRESERVATIVE FREE 01/26/2016 [facility] State Funded Flu Vaccine 04/29/2013 TDAP 07/25/2016 Social History Tobacco Use Types Packs/Day Years Used Date Smoking Tobacco: Never Assessed Comments Unknown Sex and Gender Information Value Date Recorded Sex Assigned at Female 11/21/2024 11:09 AM PDT Legal Sex Female 11:09 AM PDT Gender Identity Female 11/21/2024 11:09 AM PDT Sexual Orientation Not on file Plan of Treatment Upcoming Encounters Date Type Department Care Team ([facility] st Contact Info) Description 01/02/2025 2:00 PM EDT Behavioral Health Visit [facility] [address] [place] [phone] Macy Barros APRN [address] [facility] [place] [address] Health Maintenance Due Date Last Done Comments Anxiety Screening 1978 Diabetes Screening 1978 HPV Screening 1978 Hepatitis C Screening 1978 Pap + HPV 1978 Tobacco Cessation Counseling (#1) 1978 Tobacco Screening 1978 HIV Screening 1993 Relationship Safety Screening/Counseling 1993 Imm-Hepatitis B (1 of 3 - 19 + 3-dose series) 1997 Cervical Cancer Screening 1999 Pap Smear 1999 Breast Cancer Screening (Mammogram) 2018 Lipid Screening 09/28/2022 09/28/2021 CT Colonography 2023 Colonoscopy 2023 Colorectal Cancer Screening 2023 FIT/gFOBT 2023 Fecal DNA 2023 Flexible Sigmoidoscopy 2023 Alcohol and Drug Screen 04/03/2024 Depression Annual Screen 04/03/2024 Idh-HAGSE-75 ( season) 2024 02/07/2022, 08/03/2020, 07/06/2020 Imm-Influenza (#1) 2024 01/19/2023, 1 04/09/2021, 11/27/2018, Additional history exists Imm-DTaP/Tdap/Td (2 - Td or Tdap) 07/25/2026 017 Cervical Ablation/Cold-Knife Conization Discontinued Cervical Cryotherapy Discontinued Colposcopy Discontinued Endometrial Biopsy Discontinued Excision/Leep Discontinued HPV Genotyping Discontinued Vaginal Pap Discontinued Vulvoscopy Discontinued Insurance COUNT INCLUDES THE [facility] [place]
--- OUTSIDE RECORDS SUMMARY | 2024-12-17 19:10 | XMS_ITS | Encounter Summary ---
Author Organization [employer] Address [address] [place] [address] 7t [place] [address] Care Team Providers Care Cytogenetic Technician Name Role Phone Alysia Holbrook MD Primary Care Provider + Encounter Details Date Type Department Care Team (Late st Contact Info) Description 07/11/2022 Orders Only [facility] [address] [place] [phone] Ramandeep Griffin LPN Social History Tobacco Use [...] Description 01/01/2025 10:30 AM EDT Clinical Support [address] [address] Jayashree Johns RN 01/16/2025 11:15 AM EDT Office Visit [facility] [address] [place] [address] Alysia Holbrook MD [address] [place] [address] [phone] documented as of this encounter Visit Diagnoses Not on filedocumented in this encounter Care Teams Cytogenetic Technician Relationship Specialty Start Date End Date Alysia Holbrook MD [address] [place] [address] [phone] PCP - General Family Medicine 06/07/18 documented as of this encounter
--- OUTSIDE RECORDS SUMMARY | 2024-12-17 19:10 | XMS_ITS | Encounter Summary ---
Author Organization [employer] Address [address] [place] [address] 7t [place] [address] Care Team Providers Care Reports Developer Name Role Phone Alysia Holbrook MD Primary Care Provider + Encounter Details Date Type Department Care Team (Late st Contact Info) Description 03/16/2022 Orders Only [facility] [address] [place] [phone] Ramandeep Griffin LPN Social History Tobacco Use [...] Description 01/01/2025 10:30 AM EDT Clinical Support [facility] [address] [place] [phone] Jayashree Johns, CAPO 01/16/2025 11:15 AM EDT Office Visit [facility] [address] [place] [address] Alysia Holbrook MD [address] [place] [phone] documented as of this encounter Visit Diagnoses Not on filedocumented in this encounter Care Teams Reports Developer Relationship Specialty Start Date End Date Alysia Holbrook MD [address] [place] [phone] PCP - General Family Medicine 06/07/18 documented as of this encounter
--- OUTSIDE RECORDS SUMMARY | 2024-12-17 19:11 | XMS_ITS | Encounter Summary ---
Author Organization [employer] Address 75 [facility] 7t [place] [address] Care Team Providers Care Automatic Dispenser Mechanic Name Role Phone Alysia Holbrook MD Primary Care Provider + Reason for Visit * Reason Comments Med Refill Encounter Details Date Type Department Care Team ([facility] st Contact Info) Description 06/04/2024 Refill [facility] 230 [place], [place] [phone] Alysia Holbrook MD 230 [place], [place] [phone] Anxiety Social History Tobacco Use Types Packs/Day [...] t he electric, gas, oil or water [employer] threatened to shut off services in your [...] Description 01/01/2025 10:30 AM EDT Clinical Support [facility] [address] [place] [phone] Jayashree Johns RN 01/16/2025 11:15 AM EDT Office Visit [facility] [address] [place] [phone] Alysia Holbrook MD [address] [place] [phone] documented as of this encounter Visit Diagnoses Diagnosis Anxiety Anxiety state, unspecified documented in this encounter Additional Health Concerns Assessment Noted Time PHQ-9 Depression Total Score: 22 023 10:16 AM EDT documented as of this encounter Care Teams Automatic Dispenser Mechanic Relationship Specialty Start Date End Date Alysia Holbrook MD [address] [place] [phone] PCP - General Family Medicine 06/07/18 documented as of this encounter
--- OUTSIDE RECORDS SUMMARY | 2024-12-17 19:11 | XMS_ITS | Encounter Summary ---
Author Organization [employer] Address 75 [facility] 7t [place] [address] Care Team Providers Care Lithograph Printer Name Role Phone Alysia Holbrook MD Primary Care Provider + Reason for Visit * Reason Onset Date Comments Medication Question 12/13/2024 Review Xanax refill date with [facility] 025 Encounter Details Date Type Department Care Team ([facility] st Contact Info) Description 12/13/2024 Telephone [facility] 230 [place], [place] [phone] Alysia Holbrook MD 230 [place], [place] [phone] Medication Question; Review Xanax refill date with [facility] Social History Tobacco Use Types Packs/Day Years [...] Telephone Encounter - Jayashree Johns RN - 12/13/2024 12:07 PM EDT TC to patient, patient notified RX for Xanax being processed now and will be available for her to pickup today. * Telephone Encounter - Jayashree Johsn RN - 12/13/2024 11:53 AM EDT TC to [facility], spoke with Ros[facility] & pharmacist Pablo reviewed with pharmacy that patient's Xanax 1mg prescription is due for fill today. Reviewed with pharmacist, on 12/06/24 PCP approved patient to increase her 11/27/24 Xanax 0.5mg RX to take 2 tablets Q8hr PRN and may take additional 1mg dose PRN panic attack - MAX 4 times per week, as was written on the prescription. Pharmacy processing prescription now and will have it ready for patient today. * Telephone Encounter - Greg Cuenca - 12/13/2024 11:50 AM EDT Tc from pt requesting a call back regarding ALPRAZolam (Xanax) 1 MG tablet stating the script was written for today but the pharmacy is not allowing pt to flower picker medication until 12/18. Please contact pt at [phone]. documented in this encounter Plan of Treatment Upcoming Encounters Date Type Department Care Team (Late st Contact Info) Description 01/01/2025 10:30 AM EDT Clinical Support [address] [address] Jayashree Johns RN 01/16/2025 11:15 AM EDT Office Visit [address] [address] Alysia Holbrook MD [address] [place] [phone] documented as of this encounter Visit Diagnoses Not on filedocumented in this encounter Additional Health Concerns Assessment Noted Time PHQ-9 Depression Total Score: 20 025 2:55 PM EDT documented as of this encounter Care Teams Lithograph Printer Relationship Specialty Start Date End Date Alysia Holbrook MD [address] [place] [phone] PCP - General Family Medicine 06/07/18 documented as of this encounter
--- OUTSIDE RECORDS SUMMARY | 2024-12-17 19:11 | XMS_ITS | Encounter Summary ---
Author Organization [employer] Address 75 [facility] 7t [place] [address] Care Team Providers Care General Warehouse Associate Name Role Phone Alysia Holbrook MD Primary Care Provider + Reason for Visit * Reason Comments Med Refill Encounter Details Date Type Department Care Team ([facility] st Contact Info) Description 11/11/2024 Refill [facility] 230 [place], [place] [phone] Alysia Holbrook MD 230 [place], [place] [phone] Degeneration of lumbar intervertebral disc; Arthritis of [...] Description 01/01/2025 10:30 AM EDT Clinical Support [facility] [address] [place] [phone] Jayashree Johns RN 01/16/2025 11:15 AM EDT Office Visit [facility] [address] [place] [phone] Alysia Holbrook MD [address] [place] [phone] documented as of this encounter Visit Diagnoses Diagnosis Degeneration of lumbar intervertebral disc Degeneration of lumbar or lumbosacral intervertebral disc Arthritis of knee Unspecified arthropathy, lower leg documented in this encounter Additional Health Concerns Assessment Noted Time PHQ-9 Depression Total Score: 025 2:55 PM EDT documented as of this encounter Care Teams General Warehouse Associate Relationship Specialty Start Date End Date Alysia Holbrook MD [address] [place] [phone] PCP - General Family Medicine 06/07/18 documented as of this encounter
--- OUTSIDE RECORDS SUMMARY | 2024-12-17 19:11 | XMS_ITS | Encounter Summary ---
Author Organization [employer] Address 75 [facility] 7t [place] [address] Care Team Providers Care Director Pharmacy Services Name Role Phone Alysia Holbrook MD Primary Care Provider + Reason for Visit * Reason Onset Date Comments Med Refill 04/11/2024 Encounter Details Date Type Department Care Team (Late st Contact Info) Description 04/11/2024 Telephone [facility] 230 [place], [place] [phone] Alysia Holbrook MD 230 [place], [place] [phone] Med Refill Social History Tobacco Use Types [...] 1:10 PM EST Naproxen was sent to [facility] #[id number] on 02/09/24 #60 with 3 refills other [...] 500 MG tablet To be sent to: [facility] #[id number] documented in this encounter Plan of Treatment Upcoming Encounters Date Type Department Care Team (Late st Contact Info) Description 01/01/2025 10:30 AM EDT Clinical Support [facility] [address] [place] [address] Jayashree Johns RN 01/16/2025 11:15 AM EDT Office Visit [facility] [address] [place] [address] Alysia Holbrook MD 230 [place] [address] documented as of this encounter Visit Diagnoses Not on filedocumented in this encounter Additional Health Concerns Assessment Noted Time PHQ-9 Depression Total Score: 22 023 10:16 AM EDT documented as of this encounter Care Teams Director Pharmacy Services Relationship Specialty Start Date End Date Alysia Holbrook MD [address] [place] [address] PCP - General Family Medicine 06/07/18 documented as of this encounter
--- OUTSIDE RECORDS SUMMARY | 2024-12-17 19:11 | XMS_ITS | Encounter Summary ---
Author Organization [employer] Address 75 [facility] 7t [place] [address] Care Team Providers Care Cabin Cleaner Name Role Phone Alysia Holbrook MD Primary Care Provider + Reason for Visit * Reason Comments Med Refill Encounter Details Date Type Department Care Team ([facility] st Contact Info) Description 08/05/2024 Refill [facility] 230 [place], [place] [phone] Alysia Holbrook MD 230 [place], [place] [phone] Anxiety Social History Tobacco Use Types Packs/Day [...] t he electric, gas, oil or water [employer] threatened to shut off services in your [...] Description 01/01/2025 10:30 AM EDT Clinical Support [facility] [address] [place] [address] Jyaashree Johns RN 01/16/2025 11:15 AM EDT Office Visit [facility] [address] [place] [address] Alysia Holbrook MD [address] [place] [address] documented as of this encounter Visit Diagnoses Diagnosis Anxiety Anxiety state, unspecified documented in this encounter Additional Health Concerns Assessment Noted Time PHQ-9 Depression Total Score: 22 023 10:16 AM EDT documented as of this encounter Care Teams Cabin Cleaner Relationship Specialty Start Date End Date Alysia Holbrook MD [address] [place] [phone] PCP - General Family Medicine 06/07/18 documented as of this encounter
--- OUTSIDE RECORDS SUMMARY | 2024-12-17 19:11 | XMS_ITS | Encounter Summary ---
Author Organization [employer] Address 75 [facility] 7t [place] [address] Care Team Providers Care Machine Stone Polisher Apprentice Name Role Phone Alysia Holbrook MD Primary Care Provider + Reason for Visit * Reason Comments Med Refill Encounter Details Date Type Department Care Team (Late st Contact Info) Description 10/18/2024 Refill [facility] 230 [place], [place] [phone] Alysia Holbrook MD 230 [place], [place] [phone] Degeneration of lumbar intervertebral disc; Anxiety Social [...] Description 01/01/2025 10:30 AM EDT Clinical Support [address] [address] Jayashree Johns RN 01/16/2025 11:15 AM EDT Office Visit [facility] [address] [place] [address] Alysia Holbrook MD [address] [place] [phone] documented as of this encounter Visit Diagnoses Diagnosis Degeneration of lumbar intervertebral disc Degeneration of lumbar or lumbosacral intervertebral disc Anxiety Anxiety state, unspecified documented in this encounter Additional Health Concerns Assessment Noted Time PHQ-9 Depression Total Score: 22 023 10:16 AM EDT documented as of this encounter Care Teams Machine Stone Polisher Apprentice Relationship Specialty Start Date End Date Alysia Holbrook MD [address] [place] [address] PCP - General Family Medicine 06/07/18 documented as of this encounter
--- OUTSIDE RECORDS SUMMARY | 2024-12-17 19:11 | XMS_ITS | Encounter Summary ---
Author Organization [employer] Address 75 [facility] 7t [place] [address] Care Team Providers Care Medical Affairs Director Name Role Phone Alysia Holbrook MD Primary Care Provider + Reason for Visit * Reason Comments Med Refill Encounter Details Date Type Department Care Team ([facility] st Contact Info) Description 11/25/2024 Refill [facility] 230 [place], [place] [phone] Alysia Holbrook MD 230 [place], [place] [phone] Degeneration of lumbar intervertebral disc; Arthritis of [...] 10:30 AM EDT Clinical Support [facility] [address] [place] [address] Jayashree Johns RN 01/16/2025 11:15 AM EDT Office Visit [facility] [address] [place] [address] Alysia Holbrook MD [address] [place] [address] documented as of this encounter Visit Diagnoses Diagnosis Degeneration of lumbar intervertebral disc Degeneration of lumbar or lumbosacral intervertebral disc Arthritis of knee Unspecified arthropathy, lower leg documented in this encounter Additional Health Concerns Assessment Noted Time PHQ-9 Depression Total Score: 20 025 2:55 PM EDT documented as of this encounter Care Teams Medical Affairs Director Relationship Specialty Start Date End Date Alysia Holbrook MD [address] [place] [address] PCP - General Family Medicine 06/07/18 documented as of this encounter
--- OUTSIDE RECORDS SUMMARY | 2024-12-17 19:11 | XMS_ITS | Encounter Summary ---
Author Organization [employer] Address [address] [facility] [address] 7t [place] [address] Care Team Providers Care Hollow Core Door Frame Assembler Name Role Phone Alysia Holbrook MD Primary Care Provider + Encounter Details Date Type Department Care Team (Latest Contact Info) Description 12/17/2024 Travel Social History Tobacco Use Types Packs/Day [...] Description 01/01/2025 10:30 AM EDT Clinical Support [facility] [address] [place] [address] Jayashree Johns, CAPO 01/16/2025 11:15 AM EDT Office Visit [facility] [address] [place] [address] Alysia Holbrook MD [address] [place] [address] documented as of this encounter Visit Diagnoses Not on filedocumented in this encounter Additional Health Concerns Assessment Noted Time PHQ-9 Depression Total Score: 20 025 2:55 PM EDT documented as of this encounter Care Teams Hollow Core Door Frame Assembler Relationship Specialty Start Date End Date Alysia Holbrook MD [address] [place] [phone] PCP - General Family Medicine 06/07/18 documented as of this encounter
--- OUTSIDE RECORDS SUMMARY | 2024-12-17 19:11 | XMS_ITS | Encounter Summary ---
Author Organization [employer] Address 75 [facility] 7t [place] [address] Care Team Providers Care Plastic Surgery Coordinator Name Role Phone Alysia Holbrook MD Primary Care Provider + Reason for Visit * Reason Comments Med Refill Encounter Details Date Type Department Care Team ([facility] st Contact Info) Description 03/27/2024 Refill [facility] 230 [place], [place] [phone] Alysia Holbrook MD 230 [place], [place] [phone] Essential hypertension Social History Tobacco Use Types [...] the past 12 months, has t he [employer], oil or water company threatened to shut [...] Description 01/01/2025 10:30 AM EDT Clinical Support [facility] [address] [place] [address] Jayashree Johns RN 01/16/2025 11:15 AM EDT Office Visit [facility] [address] [place] [address] Alysia Holbrook MD [address] [place] [address] documented as of this encounter Visit Diagnoses Diagnosis Essential hypertension Unspecified essential hypertension documented in this encounter Additional Health Concerns Assessment Noted Time PHQ-9 Depression Total Score: 22 023 10:16 AM EDT documented as of this encounter Care Teams Plastic Surgery Coordinator Relationship Specialty Start Date End Date Alysia Holbrook MD [address] [place] [phone] PCP - General Family Medicine 06/07/18 documented as of this encounter
--- OUTSIDE RECORDS SUMMARY | 2024-12-17 19:11 | XMS_ITS | Encounter Summary ---
Author Organization [employer] Address 75 [facility] 7t [place] [address] Care Team Providers Care Mail Truck Driver Name Role Phone Alysia Holbrook MD Primary Care Provider + Reason for Visit * Reason Onset Date Comments UTOX Pos FENT & MOP 12/17/2024 Encounter Details Date Type Department Care Team (Late st Contact Info) Description 12/17/2024 Telephone [facility] [address] [place] [address] Jayashree Johns RN UTOX Pos FENT & MOP Social History Tobacco Use Types Packs/Day Years [...] Telephone Encounter - Jayashree Johns RN - 12/17/2024 10:52 AM EDT Pt had TREASURY AGENT RV today UTOX was Pos FENT & MOP, sent out for confirmation. Pt arrived today very SOB, diaphoretic. States she gets this way after walking for a bit. C/O pain in her back and lower legs. Also shared her favorite aunt was found in her home. She admitsto shooting up and snorting heroine recently d/t her grief. Offered WIC for her c/o back pain and SOB with exertion. She declined, she said it happens all the time. Discussed [facility] CRS department and what it can offer in relation to her drug use. Patient stated she does not want to keep using drugs. Patient agreeable to go and see what CRS can offer for services to help. Stated she can't go today because she has an ultrasound scheduled for this morning. Stated she will go over after her next TREASURY AGENT appt 01/01/25. documented in this encounter Plan of Treatment Upcoming Encounters Date Type Department Care Team (Late st Contact Info) Description 01/01/2025 10:30 AM EDT Clinical Support [facility] [address] [place] [address] Jayashree Johns RN 01/16/2025 11:15 AM EDT Office Visit [facility] [address] [place] [address] Alysia Holbrook MD 230 [place] [address] documented as of this encounter Visit Diagnoses Not on filedocumented in this encounter Additional Health Concerns Assessment Noted Time PHQ-9 Depression Total Score: 20 025 2:55 PM EDT documented as of this encounter Care Teams Mail Truck Driver Relationship Specialty Start Date End Date Alysia Holbrook MD 230 [place] [address] PCP - General Family Medicine 06/07/18 documented as of this encounter
--- OUTSIDE RECORDS SUMMARY | 2024-12-17 19:11 | XMS_ITS | Encounter Summary ---
Author Organization [employer] Address [address] [place] [address] 7t [place] [address] Care Team Providers Care Stamps Or Coins Salesperson Name Role Phone Alysia Holbrook MD Primary Care Provider + Reason for Visit * Reason Onset Date Comments Nurse Triage 01/03/2023 Encounter Details Date Type Department Care Team (Late st Contact Info) Description 01/03/2023 Telephone [facility] 230 [place], [place] [phone] Alysia Holbrook MD 230 [place], [place] [phone] Nurse Triage Social History Tobacco Use Types [...] 01/19/23. Pt declined offer to go to [facility] open till 8pm today. Pt doesn't have transportation and will call PT 1 for apt scheduled. Pt is advised to increase fluid intake to 8 glasses per day, increase fresh fruits/vegetables and fiber. Pt agrees. It is stressed by this proposal lead writer the need to seekevaluation in closest [...] accepted this outcome Please contact pt at [phone] documented in this encounter Plan of Treatment Upcoming Encounters Date Type Department Care Team (Late st Contact Info) Description 01/01/2025 10:30 AM EDT Clinical Support [address] [address] Jayashree Johns, RN 01/16/2025 11:15 AM EDT Office Visit [facility] [address] [place] [address] Alysia Holbrook MD [address] [place] [address] documented as of this encounter Visit Diagnoses Not on filedocumented in this encounter Additional Health Concerns Assessment Noted Time PHQ-9 Depression Total Score: 22 06/ 023 10:16 AM EDT documented as of this encounter Care Teams Stamps Or Coins Salesperson Relationship Specialty Start Date End Date Alysia Holbrook MD [address] [place] [address] PCP - General Family Medicine 06/07/18 documented as of this encounter
--- OUTSIDE RECORDS SUMMARY | 2024-12-17 19:11 | XMS_ITS | Encounter Summary ---
Author Organization [employer] Address 75 [facility] 7t [place] [address] Care Team Providers Care Home Performance Consultant Name Role Phone Alysia Holbrook MD Primary Care Provider + Reason for Visit * Reason Comments Med Refill Encounter Details Date Type Department Care Team ([facility] st Contact Info) Description 07/01/2024 Refill [facility] 230 [place], [place] [phone] Alysia Holbrook MD 230 [place], [place] [phone] Anxiety Social History Tobacco Use Types Packs/Day [...] t he electric, gas, oil or water [employer] threatened to shut off services in your [...] Description 01/01/2025 10:30 AM EDT Clinical Support [facility] [address] [place] [address] Jayashree Johns RN 01/16/2025 11:15 AM EDT Office Visit [facility] [address] [place] [address] Alysia Holbrook MD [address] [place] [address] documented as of this encounter Visit Diagnoses Diagnosis Anxiety Anxiety state, unspecified documented in this encounter Additional Health Concerns Assessment Noted Time PHQ-9 Depression Total Score: 22 023 10:16 AM EDT documented as of this encounter Care Teams Home Performance Consultant Relationship Specialty Start Date End Date Alysia Holbrook MD [address] [place] [address] PCP - General Family Medicine 06/07/18 documented as of this encounter
--- OUTSIDE RECORDS SUMMARY | 2024-12-17 19:11 | XMS_ITS | Encounter Summary ---
Author Organization [employer] Address 75 [facility] 7t [place] [address] Care Team Providers Care Motors And Controls Tester Name Role Phone Alysia Holbrook MD Primary Care Provider + Reason for Visit * Reason Comments Med Refill Encounter Details Date Type Department Care Team ([facility] st Contact Info) Description 07/19/2024 Refill [facility] 230 [place], [place] [phone] Alysia Holbrook MD 230 [place], [place] [phone] Degeneration of lumbar intervertebral disc; Arthritis of [...] Description 01/01/2025 10:30 AM EDT Clinical Support [address] [address] Jayashree Johns RN 01/16/2025 11:15 AM EDT Office Visit [facility] [address] [place] [address] Alysia Holbrook MD [address] [place] [address] documented as of this encounter Visit Diagnoses Diagnosis Degeneration of lumbar intervertebral disc Degeneration of lumbar or lumbosacral intervertebral disc Arthritis of knee Unspecified arthropathy, lower leg documented in this encounter Additional Health Concerns Assessment Noted Time PHQ-9 Depression Total Score: 22 023 10:16 AM EDT documented as of this encounter Care Teams Motors And Controls Tester Relationship Specialty Start Date End Date Alysia Holbrook MD [address] [place] [phone] PCP - General Family Medicine 06/07/18 documented as of this encounter
--- OUTSIDE RECORDS SUMMARY | 2024-12-17 19:11 | XMS_ITS | Encounter Summary ---
Author Organization [employer] Address 75 [facility] 7t [place] [address] Care Team Providers Care Communications Designer Name Role Phone Alysia Holbrook MD Primary Care Provider + Reason for Visit * Reason Comments Med Refill Encounter Details Date Type Department Care Team (Late st Contact Info) Description 06/23/2024 Refill [facility] 230 [place], [place] [phone] Alysia Holbrook MD 230 [place], [place] [phone] Degeneration of lumbar intervertebral disc; Anxiety Social [...] Description 01/01/2025 10:30 AM EDT Clinical Support [address] [address] Jayashree Johns RN 01/16/2025 11:15 AM EDT Office Visit [facility] [address] [place] [address] Alysia Holbrook MD [address] [place] [address] documented as of this encounter Visit Diagnoses Diagnosis Degeneration of lumbar intervertebral disc Degeneration of lumbar or lumbosacral intervertebral disc Anxiety Anxiety state, unspecified documented in this encounter Additional Health Concerns Assessment Noted Time PHQ-9 Depression Total Score: 22 023 10:16 AM EDT documented as of this encounter Care Teams Communications Designer Relationship Specialty Start Date End Date Alysia Holbrook MD [address] [place] [phone] PCP - General Family Medicine 06/07/18 documented as of this encounter
[2024-12-23 09:41] LABS: Fentanyl, Ur 483.2; Norfentanyl, Ur >500
[2024-12-23 09:42] LABS: Hydrocodone, Ur NEGATIVE; Oxycodone, Ur NEGATIVE
[2024-12-23 09:43] LABS: Hydromorphone, Ur NEGATIVE; Morphine, Ur 4129; Norhydrocodone, Ur NEGATIVE; Noroxycodone, Ur NEGATIVE; Oxymorphone, Ur NEGATIVE
[2024-12-23 09:45] LABS: Codeine, Ur 95
== END 2024-12-17 16:48 | disposition home or self-care (01) ==
LOC: HO.HHCLNP 16:47
PROVIDERS: Visit Provider Internal Medicine
DX: Z79.899 Other long term (current) drug therapy (principal)
CPT/HCPCS: 80354; 80365; G0480

== ENCOUNTER 2025-01-01 16:25 | Outpatient (REF) | payer MEDICAID, SELFPAY ==
--- OUTSIDE RECORDS SUMMARY | 2025-01-01 10:30 | XMS_ITS | Encounter Summary ---
Author Organization [employer] Address [address] [facility] 7t [place] [address] Care Team Providers Care Parts Interpreter Name Role Phone Alysia Holbrook MD Primary Care Provider + Reason for Visit * Reason Comments TUNGSTEN TENDER RV Encounter Details Date Type Department Care Team (Latest Contact Info) Description 01/01/2025 10:30 AM EDT Clinical Support [facility] MEDICINE [address] [place] [address] Jayashree Johns RN Long-term current use of [...] Progress Notes * Jayashree Johns RN - 01/01/2025 10:30 AM EDT SUBJECTIVE: Vikki Cuenca is a 44 y.o. year old female who presents for TUNGSTEN TENDER RV Preferred language for medical information: Kinyarwanda Vikki Cuenca does report adherence to Alprazolam (Xanax) 1 mg, take 1 tablet every 8 hours PRN, may also take 1 additional dose a day PRN panic attack Max 4X a week, last refilled 12/13/2024. The patient last took Alprazolam (Xanax) on: 01/01/2025 Medication effective: Yes Sleep habits: Not good d/t upset regarding loss of family member Therapist: Yessenia - Ever @ [facility]. States she will be assigned a psychiatrist as well. Pt admited to use of heroine 12/27/24. States she snorted it d/t her feelings of loss regarding her aunt who . Per PCP note attached to TUNGSTEN TENDER visit from 12/17/24: Positive view dose of fentanyl end-cutting on 916 reviewed. I called patient and discussed with her the results, she says she is working on getting sober and already has an appointment with a therapist who will [facility]. She says she is significantly cutting down the heroin dose that she is uses to few times per week, she denies using other recreational substances, alcohol or pills on the street. She has Narcan with her. AP/we discussed the importance of reaching sobriety, reach out to methadone program and legal recovery specialist She will address this issue with therapist, I will continue prescribing Seroquel, gabapentin, fluoxetine and monthly doses of alprazolam for the next 3 months, if she is does not achieve sobriety, debbiell work with her or either detox or taper down to off alprazolam. Patient agreed with POC and follow-up with me next month OBJECTIVE: MUSIC PASTOR checked: 01/01/2025 Pill count completed for Alprazolam (Xanax), count today is 41 , anticipated count should be 44, this is not as expected. Reviewed Xanax order with patient. Last PCP visit: 12/06/2024 AIDEN-7 Total Score: 7 (11/06/2024 10:39 AM) Controlled substance agreement signed: Controlled Substance Agreement 11/06/2024 TUNGSTEN TENDER Tier: 1 Current Medications[1] Smoking status: Yes, 1/2 pack cigarettes daily ETOH use: Denies Illicit substances: Yes, heroine, snorted and shot up Marijuana use: No Lab Results Component Value Date POCTHC Negative 01/01/2025 POCCOCAINEUR Negative 01/01/2025 POCOPIATEUR Positive (A) 01/01/2025 DOAUR Negative 01/01/2025 POCAMPHETAMI Negative 01/01/2025 POCBENZODIUR Positive 01/01/2025 POCBARBSCRN Negative 01/01/2025 POCMETHADOUR Positive 01/01/2025 POCBUPSCRN Negative 01/01/2025 POCTCAUR Negative 01/01/2025 POCMDMAUR Negative 01/01/2025 POCOXYCODONE Negative 01/01/2025 POCPHENCYCUR Negative 01/01/2025 PROPOXUR Negative 01/01/2025 FENTANYLURIN Positive (A) 01/01/2025 Reviewed UTOX results with patient. Explained I would send UTOX out for FENT & MOP confirmation. ASSESSMENT: Encounter Diagnosis Name Primary? Long-term current use of benzodiazepine Yes PLAN: Information on acupuncture given: Previously discussed Narcan education provided: Previously discussed Narcan prescription: active Will update PCP with UTOX results and pts information regarding behavioral health. Vikki Cuenca will continue taking medication as prescribed and follow up at the next TUNGSTEN TENDER visit or sooner if needed. Vikki Cuenca has verbalized understanding of care plan. Future Appointments Date Time Provider Department Center 01/15/2025 10:30 AM Jayashree Johns RN MEDICINE [facility] 01/16/2025 11:15 AM Alysia Holbrook MD MEDICINE [facility] Jayashree Johns RN [1] Current Outpatient Medications: [...] Elastic Bandages & Supports (Medical Compression Stockings) [facility], See Instructions, # 3 each, Maintenance, surgical, calf length 20-30 mm Hg, 08/14/20 11:34:00 EDT, Supply, Disp: , Rfl: FLUoxetine (PROzac) 20 MG capsule, Take 3 capsules (60 mg) by mouth in the morning., Disp: 90 capsule, Rfl: 1 gabapentin (Neurontin) 600 MG tablet, TAKE 1 TABLET BY MOUTH THREE TIMES DAILY, Disp: 90 tablet, Rfl: 1 lisinopril-hydroCHLOROthiazide 20-12.5 [...] Care Team (Late st Contact Info) Description 01/15/2025 10:30 AM EDT Clinical Support [facility] MEDICINE [address] [place] [phone] Jayashree Johns RN 01/16/2025 11:15 AM EDT Office Visit [facility] MEDICINE [address] [place] [phone] Alysia Holbrook MD [address] [place] [phone] Scheduled Orders Name Type Priority Associated Diagnoses Orde r Schedule Drug Monitoring, Fentanyl, with Confirmation, Urine Lab Routine Long-term current use of benzodiazepine Ordered: 01/01/2025 Drug Monitoring, Opiates Expanded, Quantitative, Urine Lab Routine Long-term current use of benzodiazepine Ordered: 01/01/2025 documented as of this encounter Procedures Procedure Name Priority Date/Time Associated Diagnosis Comments POCT YOSELIN-14 URINE DRUG SCREEN Routine 01/01/2025 11:14 AM EDT Long-term current use of benzodiazepine documented in this encounter Results * (ABNORMAL) POCT YOSELIN-14 Urine Drug Screen (01/01/2025 11:14 AM EDT) THC Negative Negative Cocaine Screen, [...] obtained by clean catch procedure / Unknown 01/01/2025 11:14 AM EDT Jayashree Grijalva RN - 01/01/2025 11:14 AM EDT UTOX cup Lot#[id number] Exp. 01/07/26 Internal Pass Control Alysia Holbrook MD POINT OF CARE TEST ENTER /EDIT ORDERABLES Final Result documented in this encounter Visit Diagnoses Diagnosis Long-term current use of benzodiazepine- Primary documented in this encounter Additional Health Concerns Assessment Noted Time PHQ-9 Depression Total Score: 20 025 2:55 PM EDT documented as of this encounter Care Teams Parts Interpreter Relationship Specialty Start Date End Date Alysia Holbrook MD [address] [place] [phone] PCP - General Family Medicine 06/07/18 documented as of this encounter
--- OUTSIDE RECORDS SUMMARY | 2025-01-01 16:41 | XMS_ITS | Clinical Summary ---
Author Organization [employer] Address [address] [facility] 7t [place] [address] Care Team Providers Care Fire Chief Name Role Phone Alysia Holbrook MD Primary [...] 3 024 Active QUEtiapine (SEROquel) 50 MG tabletIndications :Anxiety [...] MG tabletIndications :Schizoaffective disorder, bipolar type (CMS/HCC) (HCC) TAKE 1 AND 1/2 TABLET BY MOUTH AT BEDTIME 45 tablet 1 025 Active ammonium lactate (Amlactin) 12 % cream APPLY TOPICALLY NEEDED FOR DRY SKIN 385 g 3 025 Active naloxone (Narcan) 4 mg/0.1 mL [...] before November 27, 2024. 84 tablet 025 Active naproxen (Naprosyn) 500 MG tabletIndications :Degeneration of lumbar intervertebral disc,Arthritis of knee Take 1 tablet (500 mg) by mouth if needed in the morning and at bedtime for mild pain. 60 tablet 3 025 Active metFORMIN XR (Glucophage-XR) 500 MG 24 hr tablet Take 1 tablet (500 mg) by mouth with evening meal. Do not crush, chew, or split. 30 tablet 11 025 2025 Active ALPRAZolam (Xanax) 1 MG tabletIndications :Anxiety Take 1 tablet (1 mg) by mouth See administration instructions for 28 days. Take 1 tablet every 8 hours as needed for anxiety PLUS may take 1 additional tablet DAILY as needed for anxiety attack, max additional dose is 4 times per week week. Do not start before December 13, 2024. 100 tablet 025 2024 Active gabapentin (Neurontin) 600 MG tabletIndications :Degeneration of lumbar intervertebral disc,Anxiety TAKE 1 TABLET BY MOUTH THREE TIMES DAILY 90 tablet 1 025 Active gabapentin (Neurontin) 600 MG tabletIndications :Degeneration of lumbar intervertebral disc,Anxiety TAKE 1 TABLET BY MOUTH THREE TIMES A DAY 90 tablet 1 025 2024 Discontinued cefadroxil (Duricef) 500 MG capsule Take 1 [...] continue to see mental health prescriber at [facility], continue Seroquel, clonidine, fluoxetine gabapentin. Increase alprazolam to 1 mg 3 times daily and to 1 mg as needed panic attacks, max 4 times per week, she may need to call earlier in 1 or 2 weeks if she runs out of the 0.5 mg Rx. Continue close follow-up with [facility] nurse. Discussed about avoiding use of recreational [...] times per week). Continue close follow-up with [facility] prescriber, continue fluoxetine 60 mg, gabapentin 600 mg 3 times daily, Seroquel and methadone. We discussed about avoiding recreational substances or alcohol, she will reach out to recovery collector or psychotherapist. She feels safe at home [...] weeks. Discussed importance of close follow-up with [facility]. History of incisional hernia repair 02/09/2024 Assessment & Plan (02/09/2024 3:33 PM EST): On 2022, doing well. Uncomplicated opioid dependence ([facility]) 2023 Assessment & Plan (12/06/2024 2:49 PM EDT): [...] has family support Fu with counselor at [facility] Pt has crisis number Skin [...] out of care until recently Stasis ulcer ([facility]) 08/03/2022 Snoring 08/03/2022 Obstructive sleep apnea syndrome [...] EDT): Ordered on 09/2022, will fu with [facility] to schedule keanu Pt needs to use [...] in 3-4 weeks. Schizoaffective disorder, bipolar type (CMS/HCC) 12/11/2015 Recurrent major depressive episodes 12/11/2015 Assessment & Plan (02/09/2024 3:37 PM EST): Previously seen at [facility], provider left. Continue Seroquel, clonidine and [...] organization. Date Type Department Care Team Description 01/01/2025 10:30 AM EDT Clinical Support [facility] [place] [address] Jayashree Johns, CAPO Long-term current use of benzodiazepine (Primary Dx) 01/01/[address] [address] Jayashree Johns RN UTOX Pos FENT & MOP 01/01/2025 Travel 12/25/2024 Travel 12/25/2024 Patient Outreach [address] [address] Alysia Holbrook MD Care Coordination ([facility] outreach for SDOH PT-1 and food needs-referral completed /) 12/25/[address] [address] Alysia Holbrook MD PT1 12/25/[address] [address] Alysia Holbrook MD Med Refill 12/25/[address] [address] Alysia Holbrook MD Degeneration of lumbar intervertebral disc; Anxiety 12/23/[address] [address] Jayashree Johns, CAPO UTOX confirmation Pos FENT & Codeine 12/17/2024 10:00 AM EDT Clinical Support [address] [address] Jayashree Johns RN Long-term current use of benzodiazepine (Primary Dx) 12/17/[address] [address] Jayashree Johns, RN UTOX Pos FENT & MOP 12/17/2024 Travel 12/13/[address] [address] Alysia Holbrook MD Medication Question; Review Xanax refill date with [facility] 12/13/[address] [address] Alysia Holbrook MD Anxiety 12/10/[address] [address] Alysia Holbrook MD Anxiety (Primary Dx) 12/10/2024 Travel 12/09/[address] [address] Alysia Holbrook MD DME Fax 12/06/2024 11:30 AM EDT Office Visit [address] [address] Alysia Holbrook MD Leg edema, left (Primary Dx); Venous stasis dermatitis of both lower extremities; Obstructive sleep apnea syndrome; Long-term current use of benzodiazepine; Essential hypertension; Degeneration of intervertebral disc of lumbar region with discogenic back pain and lower extremity pain; Uncomplicated opioid dependence (CMS/[facility]); AIDEN (generalized anxiety disorder); Class 3 severe obesity due to excess calories with serious comorbidity and body mass index (BMI) of 50.0 to 59.9 in adult; Dietary counseling; Exercise counseling 12/06/2024 Travel 12/05/[address] [address] Alysia Holbrook MD Chart Prep 12/02/2024 Travel 11/29/2024 Travel 11/28/2024 10:30 AM EDT Clinical Support [address] [address] Jayashree Johns, RN Long-term current use of benzodiazepine (Primary Dx) 11/28/[address] [address] Jayashree Johns RN Needs new order for sleep study 11/28/2024 Refill [facility] [address] [place] [address] Jayashree Johns RN Degeneration of lumbar intervertebral disc; Arthritis of knee 11/27/2024 Travel 11/25/2024 Refill [facility] [address] [place] [address] Alysia Holbrook MD Degeneration of lumbar intervertebral disc; Arthritis of knee 11/25/2024 Refill [facility] [address] [place] [address] Jayashree Johns RN Anxiety 11/20/2024 Telephone [facility] [address] [place] [address] Jayashree Johns RN Pt cancelled [facility] appt 11/20/24 11/13/2024 Travel 11/11/2024 Refill [facility] [address] [place] [address] Alysia Holbrook MD Degeneration of lumbar intervertebral disc; Arthritis of knee 11/06/2024 10:00 AM EDT Clinical Support [facility] MEDICINE [address] [place] [address] Jayashree Johns RN Long-term current use of benzodiazepine (Primary Dx) 11/06/2024 Refill [facility] [address] [place] [address] Jayashree Johns RN 11/06/2024 Travel 10/30/2024 Refill [facility] [address] [place] [address] Alysia Holbrook MD Anxiety; Degeneration of lumbar intervertebral disc 10/30/2024 Refill [facility] [address] [place] [address] Alysia Holbrook MD Degeneration of lumbar intervertebral disc; Anxiety 10/30/2024 Refill [facility] [address] [place] [address] Alysia Holbrook MD Anxiety 10/28/2024 Telephone [facility] [address] [place] [address] Jayashree Johns RN [facility] Tier ? 10/21/2024 Refill [facility] [address] [place] [address] Alysia Holbrook MD 10/18/2024 Refill [facility] [address] [place] [address] Alysia Holbrook MD Degeneration of lumbar intervertebral disc; Anxiety 10/01/2024 Refill [facility] [address] [place], [place] [phone] Alysia Holbrook MD Anxiety from Last 3 Months Immunizations Immunization Administration [...] Description 01/15/2025 10:30 AM EDT Clinical Support [facility] MED[facility]INE [address] [place] [address] Jayashree Johns, CAPO 01/16/2025 11:15 AM EDT Office Visit [facility] MEDICINE [address] [place] [address] Alysia Holbrook MD [address] [place] [address] Health Maintenance Due Date Last Done Comments [...] 02/07/2022, 08/03/2020, 07/06/2020 Influenza Vaccine (#1) 2024 , 02/07/2022, 11/27/2018, [...] benzodiazepine POCT YOSELIN-14 URINE DRUG SCREEN Routine 12/17/2024 10:44 AM EDT Long-term current use of benzodiazepine DRUG MONITOR, OPIATES EXPANDED, QN, URINE Routine 12/17/2024 10:00 AM EDT Long-term current use of benzodiazepine DRUG MONITOR, FENTANYL, W/CONF, URINE Routine 12/17/2024 10:00 AM EDT Long-term current use of [...] Urine Drug Screen (01/01/2025 11:14 AM EDT) Only the most recent of4 resultswithin the time period is included. THC [...] - 01/01/2025 11:14 AM EDT UTOX cup Lot#[id number] Exp. 01/07/26 Internal Pass Control Alysia Holbrook MD POINT OF CARE TEST ENTER /EDIT ORDERABLES Final Result * Drug Monitoring, Opiates Expanded, Quantitative, Urine (12/17/2024 10:00 AM EDT) Only the most recent of2 resultswithin the time period is included. Codeine, Urine [address] [facility] Comment:CUTOFF 50 NG/MLPERFO RMING SITE:[facility] [employer] [facility], [address] [place] [phone] Plastic Dolls Mold Filler: CRUZ AKINS MD, CLIA:[id number] Hydrocodone, Ur NEGATIVE [facility] Comment:CUTOFF 50 NG/ML Oxycodone, Urine NEGATIVE [facility] Comment:CUTOFF 50 NG/ML Oxycodone GC/MS Note SEE NOTE [facility] Comment:This drug testing is for medical treatment only. Analysiswas performed as non-forensic testing and these resultsshould be used only by healthcare providers to renderdiagnosis or treatment, or to monitor progress of medicalconditions.LDT Notes:Confirmation tests were developed and their analyticalperformance characteristics have been determined by [employer]. It has not been cleared orapproved by the FDA. This assay has been validated pursuantto the CLIA regulations and is used for clinical purposes.Healthcare Providers needing Interpretation assistance,please contact us at [phone] ( ) M-F,8am to 10pm EST Morphine, Urine 4129 [facility] Comment:CUTOFF 50 NG/ML Hydromorphone, Urine NEGATIVE [facility] Comment:CUTOFF 50 NG/ML Oxymorphone, Urine NEGATIVE [facility] Comment:CUTOFF 50 NG/ML Opiates GC/MS Note SEE NOTE [facility] Comment: This drug testing is for medical treatment only. Analysiswas performed as non-forensic testing and these resultsshould be used only by healthcare providers to renderdiagnosis or treatment, or to monitor progress of medicalconditions.Opiates Notes:Codeine, Morphine detected is consistent with the use of thedrug Codeine. Morphine is a metabolite of Codeine. Lowconcentrations of Morphine have been observed followingingestion of products containing poppy seeds.Morphine detected is consistent with the use of the drugMorphine. Morphine can be a prescribed drug and is also ametabolite of Codeine and Heroin. Low concentrations ofMorphine have been observed following ingestion of productscontaining poppy seeds.LDT Notes:Confirmation tests were developed and their analyticalperformance characteristics have been determined by [employer]. It has not been cleared orapproved by the FDA. This assay has been validated pursuantto the CLIA regulations and is used for clinical purposes.Healthcare Providers needing Interpretation assistance,please contact us at [phone] ( ) M-F,8am to 10pm EST Norhydrocodone, Urine NEGATIVE [facility] Comment:CUTOFF 50 NG/ML Noroxycodone, Urine NEGATIVE [facility] Comment:CUTOFF 50 NG/ML Urine (Urine, Random) 12/17/2024 10:00 AM EDT 12/17/2024 4:50 PM EDT us Alysia Holbrook MD LAB URINE ORDERABLES Fin al Result [facility] [address] [place] [phone] * Drug Monitoring, Fentanyl, with Confirmation, Urine (12/17/2024 10:00 AM EDT) Only the most recent of2 resultswithin the time period is included. Fentanyl, Ur 483.2 [facility] Comment:CUTOFF 0.5 NG/MLPERF ORMING SITE:[facility] [employer] [facility], [address] [place] [phone] Plastic Dolls Mold Filler: CRUZ AKINS MD, CLIA:[id number] Norfentanyl, Ur >500 [facility] Comment:CUTOFF 0.5 NG/ML Fentanyl Note SEE NOTE [facility] Comment:This drug testing is for medical treatment only. Analysiswas performed as non-forensic testing and these resultsshould be used only by healthcare providers to renderdiagnosis or treatment, or to monitor progress of medicalconditions.Fentanyl Notes:Fentanyl, Norfentanyl detected is consistent with the use ofthe drug Fentanyl.LDT Notes:Confirmation tests were developed and their analyticalperformance characteristics have been determined by [employer]. It has not been cleared or approved by the FDA.This assay has been validated pursuant to the CLIAregulations and is used for clinical purposes.Healthcare Providers needing Interpretation assistance,please contact us at [phone] ( ) M-F,8am to 10pm EST Urine (Urine, Random) 12/17/2024 10:00 AM EDT 12/17/2024 4:50 PM EDT us Alysia Holbrook MD LAB URINE ORDERABLES Fin al Result [facility] [address] [place] [address] [phone] * (ABNORMAL) LIPID PANEL, STANDARD (09/28/2021 [...] LDL-C. Surinder SS et al. AUBREY. 2013;310(19): 0061-3893 (http://education.CorpU/faq/LIZ823) Non-HDL Cholesterol 77 <130 mg/dL (calc) [facility] Comment: For patients with diabetes plus 1 major ASCVD risk factor, treating to a non-HDL-C goal of <100 mg/dL (LDL-C of <70 mg/dL) is considered a therapeutic option. Triglycerides 110 <150 mg/dL [facility] 09/28/2021 10:5 6 AM EDT us Alysia Holbrook MD LAB BLOOD ORDERABLES Fin al Result [facility] [address] * HPV E6/E7 RFLX RICK 16 18/45 (12/11/2018 10:35 AM EDT) HPV 18/45 RNA Test not performed [facility] HPV mRNA E6/E7 Not Detected NOT DETECTED [facility] Comment: This test was performed using the APTIMA(R) HPV Assay ([employer] This assay detects E6/E7 viral messenger RNA (mRNA) from 14 high-risk HPV types (16,18,31,33,35,39,45,51, 52,56,58,59,66,68). For additional information please refer to: http://education.VCE/faq/FHV854d3 (This link is being provided for informational/ educational purposes only.) The analytical performance characteristics of this assay have been determined [facility] [place] The modifications have not been cleared or approved by the FDA. This assay has been validated pursuant to the CLIA regulations and is used for clinical purposes. Please note: Effective 12/14/2015, HPV testing will be performed using [employer]'s APTIMA test which targets mRNA. Detecting mRNA instead of DNA, as in older methods, offers significant improvements in specificity. ADDITIONAL TESTING Not indicated () [facility] Comment: Test Performed by [facility], [facility], [address] [place], [place] Wander Monsalve M.D., Ph.D., Director of Laboratories , CLIA [id number] HPV 16 RNA Test not performed [facility] 12/11/2018 10:3 5 AM EDT us Alysia Holbrook MD HISTORICAL/NON ORDERABLE LABS Final Result [facility] [address] from Last 3 Months or Most Recently Relevant to Health Maintenance Insurance [facility] [id number] * Guarantor: Vikki Cuenca Account Type Relation to Patient Date of Phone Billing Address Personal/Family Self [address] ASHLEY Hua Care Teams Fire Chief Relationship Specialty Start Date End Date Alysia Holbrook MD [address] [place] [address] [place] [address] PCP - General Family Medicine 06/07/18
--- OUTSIDE RECORDS SUMMARY | 2025-01-01 16:41 | XMS_ITS | Encounter Summary ---
Author Organization [employer] Address [address] [place] [address] 7t [place] [address] Care Team Providers Care Surveillance Investigator Name Role Phone Alysia Holbrook MD Primary Care Provider + Encounter Details Date Type Department Care Team (Late st Contact Info) Description 04/15/2022 Orders Only [facility] [address] [place] [phone] Rmaandeep Griffin LPN Social History Tobacco Use Types [...] Description 01/15/2025 10:30 AM EDT Clinical Support [facility] [address] [place] [phone] Jayashree Johns, CAPO 01/16/2025 11:15 AM EDT Office Visit [facility] [address] [place] [address] Alysia Holbrook MD [address] [place] [phone] documented as of this encounter Visit Diagnoses Not on filedocumented in this encounter Care Teams Surveillance Investigator Relationship Specialty Start Date End Date Alysia Holbrook MD [address] [place] [phone] PCP - General Family Medicine 06/07/18 documented as of this encounter
--- OUTSIDE RECORDS SUMMARY | 2025-01-01 16:41 | XMS_ITS | Encounter Summary ---
Author Organization [employer] Address 75 [facility] 7t [place] [address] Care Team Providers Care Plastic Surgery Manager Name Role Phone Alysia Holbrook MD Primary Care Provider + Reason for Visit * Reason Comments Med Refill Encounter Details Date Type Department Care Team ([facility] st Contact Info) Description 07/01/2024 Refill [facility] 230 [place], [place] [phone] Alysia Holbrook MD 230 [place], [place] [phone] Anxiety Social History Tobacco Use Types Packs/Day [...] t he electric, gas, oil or water [employer] threatened to shut off services in [...] Description 01/15/2025 10:30 AM EDT Clinical Support [facility] [address] [place] [address] 54226 Jayashree Johns RN 01/16/2025 11:15 AM EDT Office Visit [facility] [address] [place] [address] 07235 Alysia Holbrook MD [address] [place] [address] 57[address] documented as of this encounter Visit Diagnoses Diagnosis Anxiety Anxiety state, unspecified documented in this encounter Additional Health Concerns Assessment Noted Time PHQ-9 Depression Total Score: 22 023 10:16 AM EDT documented as of this encounter Care Teams Plastic Surgery Manager Relationship Specialty Start Date End Date Alysia Holbrook MD [address] [place] [address] [phone] PCP - General Family Medicine 06/07/18 documented as of this encounter
--- OUTSIDE RECORDS SUMMARY | 2025-01-01 16:41 | XMS_ITS | Encounter Summary ---
Author Organization [employer] Address [address] [place] [address] 7t [place] [address] Care Team Providers Care Public Housing Manager Name Role Phone Alysia Holbrook MD Primary Care Provider + Encounter Details Date Type Department Care Team (Late st Contact Info) Description 07/11/2022 Orders Only [facility] [address] [place] [address] [phone] Ramandeep Griffin LPN Social History Tobacco Use [...] Description 01/15/2025 10:30 AM EDT Clinical Support [facility] [address] [place] [address] [phone] Jayashree Johns, CAPO 01/16/2025 11:15 AM EDT Office Visit [facility] [address] [place] [address] 84080 Alysia Holbrook MD [address] [place] [address] [phone] documented as of this encounter Visit Diagnoses Not on filedocumented in this encounter Care Teams Public Housing Manager Relationship Specialty Start Date End Date Alysia Holbrook MD [address] [place] [address] [phone] PCP - General Family Medicine 06/07/18 documented as of this encounter
--- OUTSIDE RECORDS SUMMARY | 2025-01-01 16:41 | XMS_ITS | Encounter Summary ---
Author Organization [employer] Address 75 [facility] 7t [place] [address] Care Team Providers Care Naval Science Teacher Name Role Phone Alysia Holbrook MD Primary Care Provider + Reason for Visit * Reason Comments Med Refill Encounter Details Date Type Department Care Team ([facility] st Contact Info) Description 11/11/2024 Refill [facility] 230 [place], [place] [phone] Alysia Holbrook MD 230 [place], [place] [phone] Degeneration of lumbar intervertebral disc; Arthritis of [...] Description 01/15/2025 10:30 AM EDT Clinical Support [facility] [address] [place] [address] 36039 Jayashree Johns RN 01/16/2025 11:15 AM EDT Office Visit [facility] [address] [place] [address] [phone] Alysia Holbrook MD [address] [place] [address] 84898 documented as of this encounter Visit Diagnoses Diagnosis Degeneration of lumbar intervertebral disc Degeneration of lumbar or lumbosacral intervertebral disc Arthritis of knee Unspecified arthropathy, lower leg documented in this encounter Additional Health Concerns Assessment Noted Time PHQ-9 Depression Total Score: 025 2:55 PM EDT documented as of this encounter Care Teams Naval Science Teacher Relationship Specialty Start Date End Date Alysia Holbrook MD [address] [place] [address] [phone] PCP - General Family Medicine 06/07/18 documented as of this encounter
--- OUTSIDE RECORDS SUMMARY | 2025-01-01 16:41 | XMS_ITS | Encounter Summary ---
Author Organization [employer] Address 75 [facility] 7t [place] [address] Care Team Providers Care Pen Rider Name Role Phone Alysia Holbrook MD Primary Care Provider + Reason for Visit * Reason Comments Med Refill Encounter Details Date Type Department Care Team ([facility] st Contact Info) Description 12/13/2024 Refill [facility] 230 [place], [place] [phone] Alysia Holbrook MD 230 [place], [place] [phone] Anxiety Social History Tobacco Use Types Packs/Day [...] Description 01/15/2025 10:30 AM EDT Clinical Support [facility] [address] [place] [address] [phone] Jayashree Johns RN 01/16/2025 11:15 AM EDT Office Visit [facility] [address] [place] [address] 30574 Alysia Holbrook MD [address] [place] [address] 7[address] documented as of this encounter Visit Diagnoses Diagnosis Anxiety Anxiety state, unspecified documented in this encounter Additional Health Concerns Assessment Noted Time PHQ-9 Depression Total Score: 20 025 2:55 PM EDT documented as of this encounter Care Teams Pen Rider Relationship Specialty Start Date End Date Alysia Holbrook MD [address] [place] [address] [phone] PCP - General Family Medicine 06/07/18 documented as of this encounter
--- OUTSIDE RECORDS SUMMARY | 2025-01-01 16:41 | XMS_ITS | Encounter Summary ---
Author Organization [employer] Address 75 [facility] 7t [place] [address] Care Team Providers Care 3D Designer Name Role Phone Alysia Holbrook MD Primary Care Provider + Reason for Visit * Reason Onset Date Comments PT1 12/25/2024 Encounter Details Date Type Department Care Team ([facility] st Contact Info) Description 12/25/2024 Telephone [facility] 230 [place], [place] [phone] Alysia Holbrook MD 230 [place], [place] [phone] PT1 Social History Tobacco Use Types Packs/Day [...] encounter Miscellaneous Notes * Telephone Encounter - Renee Qureshi - 12/25/2024 12:58 PM EDT Patient calling requesting PT1 Home Address verified: Y/N: Yes Provider name or facility name: [facility] Escort needed: Y/N: No Do you have a wheelchair: Y/N: No If yes- Manual or electric: N/a Visits: 4 x monthly Patient calling requesting PT1 Home Address verified: Y/N: Yes Provider name or facility name: [address] [place] [address] Escort needed: Y/N: No Do you have a wheelchair: Y/N: No If yes- Manual or electric: n/a Visits: 4 x monthly documented in this encounter Plan of Treatment Upcoming Encounters Date Type Department Care Team (Late st Contact Info) Description 01/15/2025 10:30 AM EDT Clinical Support [facility] [address] [place] [address] 9[address]13 Jayashree Johns RN 01/16/2025 11:15 AM EDT Office Visit [facility] [address] [place] [address] 17280 Alysia Holbrook MD 230 [place] [address] documented as of this encounter Visit Diagnoses Not on filedocumented in this encounter Additional Health Concerns Assessment Noted Time PHQ-9 Depression Total Score: 20 025 2:55 PM EDT documented as of this encounter Care Teams 3D Designer Relationship Specialty Start Date End Date Alysia Holbrook MD 230 [place] [address] PCP - General Family Medicine 06/07/18 documented as of this encounter
--- OUTSIDE RECORDS SUMMARY | 2025-01-01 16:41 | XMS_ITS | Encounter Summary ---
Author Organization [employer] Address 75 [facility] 7t [place] [address] Care Team Providers Care Cmm Programmer Name Role Phone Alysia Holbrook MD Primary Care Provider + Reason for Visit * Reason Comments Med Refill Encounter Details Date Type Department Care Team ([facility] st Contact Info) Description 06/04/2024 Refill [facility] 230 [place], [place] [phone] Alysia Holbrook MD 230 [place], [place] [phone] Anxiety Social History Tobacco Use Types Packs/Day [...] t he electric, gas, oil or water [employer] threatened to shut off services in your [...] Description 01/15/2025 10:30 AM EDT Clinical Support [facility]INE [address] [place] [address] [phone] Jayashree Johns RN 01/16/2025 11:15 AM EDT Office Visit [facility] [address] [place] [address] 70795 Alysia Holbrook MD [address] [place] [address] [phone] documented as of this encounter Visit Diagnoses Diagnosis Anxiety Anxiety state, unspecified documented in this encounter Additional Health Concerns Assessment Noted Time PHQ-9 Depression Total Score: 22 023 10:16 AM EDT documented as of this encounter Care Teams Cmm Programmer Relationship Specialty Start Date End Date Alysia Holbrook MD [address] [place] [address] [phone] PCP - General Family Medicine 06/07/18 documented as of this encounter
--- OUTSIDE RECORDS SUMMARY | 2025-01-01 16:41 | XMS_ITS | Encounter Summary ---
Author Organization [employer] Address 75 [facility] 7t [place] [address] Care Team Providers Care Stripper Latex Name Role Phone Alysia Holbrook MD Primary Care Provider + Reason for Visit * Reason Onset Date Comments Med Refill 04/11/2024 Encounter Details Date Type Department Care Team (Late st Contact Info) Description 04/11/2024 Telephone [facility]INE 230 [place], [place] [phone] Alysia Holbrook MD 230 [place], [place] [phone] Med Refill Social History Tobacco Use Types [...] 1:10 PM EST Naproxen was sent to [facility] #[id number] on 02/09/24 #60 with 3 refills other [...] 500 MG tablet To be sent to: [email or web address] #[id number] documented in this encounter Plan of Treatment Upcoming Encounters Date Type Department Care Team (Late st Contact Info) Description 01/15/2025 10:30 AM EDT Clinical Support [facility] MEDICINE [address] [place] [address] [phone] Jayashree Johns RN 01/16/2025 11:15 AM EDT Office Visit [facility] [address] [place] [address] Alysia Holbrook MD 230 [place] [address] documented as of this encounter Visit Diagnoses Not on filedocumented in this encounter Additional Health Concerns Assessment Noted Time PHQ-9 Depression Total Score: 22 023 10:16 AM EDT documented as of this encounter Care Teams Stripper Latex Relationship Specialty Start Date End Date Alysia Holbrook MD [address] [place] [address] 48189 PCP - General Family Medicine 06/07/18 documented as of this encounter
--- OUTSIDE RECORDS SUMMARY | 2025-01-01 16:41 | XMS_ITS | Encounter Summary ---
Author Organization [employer] Address 75 [facility] 7t [place] [address] Care Team Providers Care Manager Sales And Marketing Name Role Phone Alysia Holbrook MD Primary Care Provider + Reason for Visit * Reason Onset Date Comments PT1 01/16/2024 Encounter Details Date Type Department Care Team ([facility] st Contact Info) Description 01/16/2024 Telephone [facility] MEDICINE 230 [place], [place] [phone] Alysia Holbrook MD 230 [place], [place] [phone] PT1 Social History Tobacco Use Types Packs/Day [...] Y/N: Yes Provider name or facility name: [facility] Facility Address: [address] [place] [address] 19[address] Escort needed: Y/N: Yes Do you have a wheelchair: Y/N: No If yes- Manual or electric: n/a Visits: 1 x 3 months documented in this encounter Plan of Treatment Upcoming Encounters Date Type Department Care Team ([facility] st Contact Info) Description 01/15/2025 10:30 AM EDT Clinical Support [facility] MEDICINE [address] [place] [address] [phone] Jayashree Johns RN 01/16/2025 11:15 AM EDT Office Visit [facility] [address] [place] [address] 50152 Alysia Holbrook MD [address] [place] [address] 04587 documented as of this encounter Visit Diagnoses Not on filedocumented in this encounter Additional Health Concerns Assessment Noted Time PHQ-9 Depression Total Score: 22 023 10:16 AM EDT documented as of this encounter Care Teams Manager Sales And Marketing Relationship Specialty Start Date End Date Alysia Holbrook MD [address] [place] [address] [phone] PCP - General Family Medicine 06/07/18 documented as of this encounter
--- OUTSIDE RECORDS SUMMARY | 2025-01-01 16:41 | XMS_ITS | Encounter Summary ---
Author Organization [employer] Address 75 [facility] 7t [place] [address] Care Team Providers Care Geriatric Social Worker Name Role Phone Alysia Holbrook MD Primary Care Provider + Reason for Visit * Reason Comments Med Refill Encounter Details Date Type Department Care Team ([facility] st Contact Info) Description 07/19/2024 Refill [facility] 230 [place], [place] [phone] Alysia Holbrook MD 230 [place], [place] [phone] Degeneration of lumbar intervertebral disc; Arthritis of [...] Description 01/15/2025 10:30 AM EDT Clinical Support [address] [address] Jayashree Johns RN 01/16/2025 11:15 AM EDT Office Visit [facility] [address] [place] [address] [phone] Alysia Holbrook MD [address] [place] [address] [phone] documented as of this encounter Visit Diagnoses Diagnosis Degeneration of lumbar intervertebral disc Degeneration of lumbar or lumbosacral intervertebral disc Arthritis of knee Unspecified arthropathy, lower leg documented in this encounter Additional Health Concerns Assessment Noted Time PHQ-9 Depression Total Score: 22 023 10:16 AM EDT documented as of this encounter Care Teams Geriatric Social Worker Relationship Specialty Start Date End Date Alysia Holbrook MD [address] [place] [address] [phone] PCP - General Family Medicine 06/07/18 documented as of this encounter
--- OUTSIDE RECORDS SUMMARY | 2025-01-01 16:41 | XMS_ITS | Encounter Summary ---
Author Organization [employer] Address [address] [place] [address] 7t [place] [address] Care Team Providers Care Regional Operations Manager Name Role Phone Alysia Holbrook MD Primary Care Provider + Encounter Details Date Type Department Care Team (Late st Contact Info) Description 05/16/[address] [facility]INE [address] [place] [address] 83313 Ramandeep Griffin LPN Social History Tobacco Use [...] Description 01/15/2025 10:30 AM EDT Clinical Support [facility] [address] [place] [address] 46787 Jayashree Johns, CAPO 01/16/2025 11:15 AM EDT Office Visit [facility] [address] [place] [address]906 Alysia Holbrook MD [address] [place] [address] [phone] documented as of this encounter Visit Diagnoses Not on filedocumented in this encounter Care Teams Regional Operations Manager Relationship Specialty Start Date End Date Alysia Holbrook MD [address] [place] [address] [phone] PCP - General Family Medicine 06/07/18 documented as of this encounter
--- OUTSIDE RECORDS SUMMARY | 2025-01-01 16:41 | XMS_ITS | Encounter Summary ---
Author Organization [employer] Address [address] [place] [address] 7t [place] [address] Care Team Providers Care Concrete Conveyor Operator Name Role Phone Alysia Holbrook MD Primary Care Provider + Reason for Visit * Reason Comments Med Refill Encounter Details Date Type Department Care Team (Late st Contact Info) Description 08/09/[address] [facility] MEDICINE [address] [place] [address] [phone] Alysia Holbrook MD [address] [place] [address] [phone] Arthritis of knee Social History Tobacco Use [...] 10:30 AM EDT Clinical Support [facility] MEDICINE [address] [place] [address] [phone] Jayashree Johns, CAPO 01/16/2025 11:15 AM EDT Office Visit [facility] MED[facility]INE [address] [place] [address] [phone] Alysia Holbrook MD [address] [place] [address] [phone] documented as of this encounter Visit Diagnoses Diagnosis Arthritis of knee Unspecified arthropathy, lower leg documented in this encounter Care Teams Concrete Conveyor Operator Relationship Specialty Start Date End Date Alysia Holbrook MD [address] [place] [address] [phone] PCP - General Family Medicine 06/07/18 documented as of this encounter
--- OUTSIDE RECORDS SUMMARY | 2025-01-01 16:41 | XMS_ITS | Encounter Summary ---
Author Organization [employer] Address 75 [facility] 7t [place] [address] Care Team Providers Care Green Building Materials Designer Name Role Phone Alysia Holbrook MD Primary Care Provider + Reason for Visit * Reason Comments Med Refill Encounter Details Date Type Department Care Team (Late st Contact Info) Description 10/18/2024 Refill [facility] 230 [place], [place] [phone] Alysia Holbrook MD 230 [place], [place] [phone] Degeneration of lumbar intervertebral disc; Anxiety Social [...] Description 01/15/2025 10:30 AM EDT Clinical Support [address] [address] Jayashree Johns RN 01/16/2025 11:15 AM EDT Office Visit [facility] [address] [place] [address] 9[address]17 Alysia Holbrook MD [address] [place] [address] 28134 documented as of this encounter Visit Diagnoses Diagnosis Degeneration of lumbar intervertebral disc Degeneration of lumbar or lumbosacral intervertebral disc Anxiety Anxiety state, unspecified documented in this encounter Additional Health Concerns Assessment Noted Time PHQ-9 Depression Total Score: 22 023 10:16 AM EDT documented as of this encounter Care Teams Green Building Materials Designer Relationship Specialty Start Date End Date Alysia Holbrook MD [address] [place] [address] [phone] PCP - General Family Medicine 06/07/18 documented as of this encounter
--- OUTSIDE RECORDS SUMMARY | 2025-01-01 16:41 | XMS_ITS | Encounter Summary ---
Author Organization [employer] Address [address] [place] [address] 7t [place] [address] Care Team Providers Care Valve Pipe Irrigator Name Role Phone Alysia Holbrook MD Primary Care Provider + Reason for Visit * Reason Onset Date Comments Nurse Triage 01/03/2023 Encounter Details Date Type Department Care Team (Late st Contact Info) Description 01/03/2023 Telephone [facility] 230 [place], [place] [phone] Alysia Holbrook MD 230 [place], [place] [phone] Nurse Triage Social History Tobacco Use Types [...] 01/19/23. Pt declined offer to go to [facility] open till 8pm today. Pt doesn't have transportation and will call PT 1 for apt scheduled. Pt is advised to increase fluid intake to 8 glasses per day, increase fresh fruits/vegetables and fiber. Pt agrees. It is stressed by this insurance underwriter sales the need to seekevaluation in closest ED [...] accepted this outcome Please contact pt at [phone] documented in this encounter Plan of Treatment Upcoming Encounters Date Type Department Care Team (Late st Contact Info) Description 01/15/2025 10:30 AM EDT Clinical Support [address] [address] Jayashree Johns, RN 01/16/2025 11:15 AM EDT Office Visit [facility] MED[facility]INE [address] [place] [address] Alysia Holbrook MD [address] [place] [address] 49252 documented as of this encounter Visit Diagnoses Not on filedocumented in this encounter Additional Health Concerns Assessment Noted Time PHQ-9 Depression Total Score: 22 06/ 023 10:16 AM EDT documented as of this encounter Care Teams Valve Pipe Irrigator Relationship Specialty Start Date End Date Alysia Holbrook MD [address] [place] [address] 85758 PCP - General Family Medicine 06/07/18 documented as of this encounter
--- OUTSIDE RECORDS SUMMARY | 2025-01-01 16:41 | XMS_ITS | Encounter Summary ---
Author Organization [employer] Address 75 [facility] 7t [place] [address] Care Team Providers Care Forgeman Helper Name Role Phone Alysia Holbrook MD Primary Care Provider + Reason for Visit * Reason Comments Med Refill Encounter Details Date Type Department Care Team ([facility] st Contact Info) Description 11/25/2024 Refill [facility] MEDICINE 230 [place], [place] [phone] Alysia Holbrook MD 230 [place], [place] [phone] Degeneration of lumbar intervertebral disc; Arthritis of [...] Description 01/15/2025 10:30 AM EDT Clinical Support [facility] [address] [place] [phone] Jayashree Johns RN 01/16/2025 11:15 AM EDT Office Visit [facility] [address] [place] [address] [phone] Alysia Holbrook MD [address] [place] [address] [phone] documented as of this encounter Visit Diagnoses Diagnosis Degeneration of lumbar intervertebral disc Degeneration of lumbar or lumbosacral intervertebral disc Arthritis of knee Unspecified arthropathy, lower leg documented in this encounter Additional Health Concerns Assessment Noted Time PHQ-9 Depression Total Score: 20 025 2:55 PM EDT documented as of this encounter Care Teams Forgeman Helper Relationship Specialty Start Date End Date Alysia Holbrook MD [address] [place] [address] 98162 PCP - General Family Medicine 06/07/18 documented as of this encounter
--- OUTSIDE RECORDS SUMMARY | 2025-01-01 16:41 | XMS_ITS | Encounter Summary ---
Author Organization [employer] Address 75 [facility] 7t [place] [address] Care Team Providers Care Waste Water Or Water Plant Operator Name Role Phone Alysia Holbrook MD Primary Care Provider + Reason for Visit * Reason Comments Med Refill Encounter Details Date Type Department Care Team ([facility] st Contact Info) Description 10/30/2024 Refill [facility] MEDICINE 230 [place], [place] [phone] Alysia Holbrook MD 230 [place], [place] [phone] Anxiety; Degeneration of lumbar intervertebral disc Social History Tobacco Use Types Packs/Day Years Used Date Smoking Tobacco: Every Day Cigarettes Smokeless Tobacco: Never Alcohol Use Standard Drinks/Week Comments Never 0 (1 standard drink = 0.6 oz pur e alcohol) Depression Answer Date Recorded Patient Health Questionnaire-9 Score 22 09/21/2022 Housing Stability Answer Date Recorded What is your housing situation today? I have marshall lnua 01/31/[address] you li [...] Description 01/15/2025 10:30 AM EDT Clinical Support [address] [address] Jayashree Johns RN 01/16/2025 11:15 AM EDT Office Visit [facility] MEDICINE [address] [place] [address] Alysia Holbrook MD [address] [place] [phone] documented as of this encounter Visit Diagnoses Diagnosis Anxiety Anxiety state, unspecified Degeneration of lumbar intervertebral disc Degeneration of lumbar or lumbosacral intervertebral disc documented in this encounter Additional Health Concerns Assessment Noted Time PHQ-9 Depression Total Score: 22 023 10:16 AM EDT documented as of this encounter Care Teams Waste Water Or Water Plant Operator Relationship Specialty Start Date End Date Alysia Holbrook MD [address] [place] [address] 16605 PCP - General Family Medicine 06/07/18 documented as of this encounter
--- OUTSIDE RECORDS SUMMARY | 2025-01-01 16:41 | XMS_ITS | Encounter Summary ---
Author Organization [employer] Address [address] 7t [place] [address] Care Team Providers Care Lithographic Platemaker Name Role Phone Alysia Holbrook MD Primary Care Provider + Reason for Visit * Reason Comments Med Refill Encounter Details Date Type Department Care Team ([facility] st Contact Info) Description 08/05/2024 Refill [facility] [address] [place], [place] [phone] Alysia Holbrook MD 230 [place], [place] [phone] Anxiety Social History Tobacco Use Types Packs/Day [...] t he electric, gas, oil or water [employer] threatened to shut off services in your [...] Description 01/15/2025 10:30 AM EDT Clinical Support [facility] [address] [place] [phone] Jayashree Johns RN 01/16/2025 11:15 AM EDT Office Visit [facility] [address] [place] [address] [phone] Alysia Holbrook MD [address] [place] [address] documented as of this encounter Visit Diagnoses Diagnosis Anxiety Anxiety state, unspecified documented in this encounter Additional Health Concerns Assessment Noted Time PHQ-9 Depression Total Score: 22 023 10:16 AM EDT documented as of this encounter Care Teams Lithographic Platemaker Relationship Specialty Start Date End Date Alysia Holbrook MD [address] [place] [phone] PCP - General Family Medicine 06/07/18 documented as of this encounter
--- OUTSIDE RECORDS SUMMARY | 2025-01-01 16:41 | XMS_ITS | Encounter Summary ---
Author Organization [employer] Address [address] [facility] 7t [place] [address] Care Team Providers Care Hinging Machine Operator Name Role Phone Alysia Holbrook MD Primary Care Provider + Reason for Visit * Reason Comments Med Refill Encounter Details Date Type Department Care Team ([facility] st Contact Info) Description 03/27/2024 Refill [facility] [address] [place], [place] [phone] Alysia Holbrook MD 230 [place], [place] [phone] Essential hypertension Social History Tobacco Use Types [...] the past 12 months, has t he [employer], oil or water company threatened to shut [...] AM EDT Clinical Support [facility] [address] [place] [phone] Jayashree Johns RN 01/16/2025 11:15 AM EDT Office Visit [facility] [address] [place] [phone] Aylsia Holbrook MD [address] [place] [phone] documented as of this encounter Visit Diagnoses Diagnosis Essential hypertension Unspecified essential hypertension documented in this encounter Additional Health Concerns Assessment Noted Time PHQ-9 Depression Total Score: 22 023 10:16 AM EDT documented as of this encounter Care Teams Hinging Machine Operator Relationship Specialty Start Date End Date Alysia Holbrook MD [address] [place] [phone] PCP - General Family Medicine 06/07/18 documented as of this encounter
--- OUTSIDE RECORDS SUMMARY | 2025-01-01 16:41 | XMS_ITS | Clinical Summary ---
Author Organization [facility] Address [address] [place] [address] Care Team Providers Care Vocational Director Name Role Phone Unavailable Primary Care Provider Unavailabl e Source Comments PLEASE NOTE, if this patient is a minor, it may be UNLAWFUL to discuss sensitive information that is contained in these records (such as FAMILY PLANNING, MENTAL HEALTH or SUBSTANCE ABUSE) with the minor patient's parent or other person without the patient's specific authorization.[facility] Medications amLODIPine (NORVASC) 5 mg tablet Take 5 [...] mg by mouth nightly at bedtime. Active ALPRAZolam (XANAX) 0.5 mg tablet Take 0.5 mg by mouth 3 (three) times daily as needed. 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 Essential hypertension 12/11/2015 Schizoaffective disorder, bipolar type 6 Assessment & Plan (12/03/2024 4:47 PM EDT): [...] EDT Behavioral Health Visit [facility] [address] [place] [phone] Macy Barros APRN from Last 3 Months Immunizations Immunization Administration Dates Next Due Flu, Preservative Free 01/19/2023,2021,11/27/2018,2014 INFLUENZA, SEASONAL, INJECTABLE 10/03/2011 INFLUENZA, SEASONAL, INJECTA BLE, PRESERVATIVE FREE 01/26/2016 [facility] Flu Vaccine 04/29/2013 TDAP 07/25/2016 [...] Upcoming Encounters Date Type Department Care Team ([facility] st Contact Info) Description 01/02/2025 2:00 PM EDT Behavioral Health Visit [facility] [address] [place] [phone] Macy Barros APRN [address] [facility] [place] [address] Health Maintenance Due Date Last Done Comments [...] Drug Screen 04/03/2024 Depression Annual Screen 04/03/2024 [id number] ( season) 2024 02/07/2022, 08/03/2020, 07/06/2020 Imm-Influenza (#1) 2024 01/19/2023, 1 04/09/2021, 11/27/2018, Additional history exists Imm-DTaP/Tdap/Td (2 - Td or Tdap) 07/25/2026 017 Cervical Ablation/Cold-Knife Conization Discontinued Cervical Cryotherapy Discontinued Colposcopy Discontinued Endometrial Biopsy Discontinued Excision/Leep Discontinued HPV Genotyping Discontinued Vaginal Pap Discontinued Vulvoscopy Discontinued Insurance [facility] [place] MEDICAID
--- OUTSIDE RECORDS SUMMARY | 2025-01-01 16:41 | XMS_ITS | Encounter Summary ---
Author Organization [email or web address] Address [address] 7t [place] [address] Care Team Providers Care Health Insurance Sales Agent Name Role Phone Alysia Holbrook MD Primary Care Provider + Reason for Visit * Reason Comments Med Refill Encounter Details Date Type Department Care Team (Late st Contact Info) Description 06/23/2024 Refill [facility] 230 [place], [place] [phone] Alysia Holbrook MD 230 [place], [place] [phone] Degeneration of lumbar intervertebral disc; Anxiety Social [...] Description 01/15/2025 10:30 AM EDT Clinical Support [address] [address] Jayashree Johns RN 01/16/2025 11:15 AM EDT Office Visit [facility] [address] [place] [phone] Alysia Holbrook MD [address] [place] [phone] documented as of this encounter Visit Diagnoses Diagnosis Degeneration of lumbar intervertebral disc Degeneration of lumbar or lumbosacral intervertebral disc Anxiety Anxiety state, unspecified documented in this encounter Additional Health Concerns Assessment Noted Time PHQ-9 Depression Total Score: 22 023 10:16 AM EDT documented as of this encounter Care Teams Health Insurance Sales Agent Relationship Specialty Start Date End Date Alysia Holbrook MD [address] [place] [phone] PCP - General Family Medicine 06/07/18 documented as of this encounter
--- OUTSIDE RECORDS SUMMARY | 2025-01-01 16:41 | XMS_ITS | Encounter Summary ---
Author Organization [employer] Address [address] [place] [address] 7t [place] [address] Care Team Providers Care Street Roller Engineer Name Role Phone Alysia Holbrook MD Primary Care Provider + Encounter Details Date Type Department Care Team (Late st Contact Info) Description 03/16/2022 Orders Only [facility] [address] [place] [phone] Ramandeep Griffin LPN Social History Tobacco Use [...] Description 01/15/2025 10:30 AM EDT Clinical Support [facility] [address] [place] [phone] Jayashree Johns, CAPO 01/16/2025 11:15 AM EDT Office Visit [facility] [address] [place] [phone] Alysia Holbrook MD [address] [place] [phone] documented as of this encounter Visit Diagnoses Not on filedocumented in this encounter Care Teams Street Roller Engineer Relationship Specialty Start Date End Date Alysia Holbrook MD [address] [place] [phone] PCP - General Family Medicine 06/07/18 documented as of this encounter
--- OUTSIDE RECORDS SUMMARY | 2025-01-01 16:42 | XMS_ITS | Encounter Summary ---
Author Organization [employer] Address [address] [facility] 7t [place] [address] Care Team Providers Care Electrical Engineering Technician Name Role Phone Alysia Holbrook MD Primary Care Provider + Reason for Visit * Reason Onset Date Comments UTOX Pos FENT & MOP 01/01/2025 Encounter Details Date Type Department Care Team (Late st Contact Info) Description 01/01/2025 Telephone [facility] [address] [place] [address] Jayashree Johns RN UTOX Pos FENT & [...] Telephone Encounter - Jayashree Johns RN - 01/01/2025 11:20 AM EDT Pt had SETTER OUT RV today UTOX was Pos FENT & MOP. Sent out for confirmation Admitted to snorting heroine on 12/27/24. Has setup services with [facility] and reports she will be assigned a psychiatrist. Decline going to [facility] today, stated she has to much to do on the first of the month. documented in this encounter Plan of Treatment Upcoming Encounters Date Type Department Care Team (Late st Contact Info) Description 01/15/2025 10:30 AM EDT Clinical Support [facility] [address] [place] [phone] Jayashree Johns RN 01/16/2025 11:15 AM EDT Office Visit [facility] [address] [place] [phone] Alysia Holbrook MD [address] [place] [phone] documented as of this encounter Visit Diagnoses Not on filedocumented in this encounter Additional Health Concerns Assessment Noted Time PHQ-9 Depression Total Score: 20 025 2:55 PM EDT documented as of this encounter Care Teams Electrical Engineering Technician Relationship Specialty Start Date End Date Alysia Holbrook MD [address] [place] [address], [place] [phone] PCP - General Family Medicine 06/07/18 documented as of this encounter
--- OUTSIDE RECORDS SUMMARY | 2025-01-01 16:42 | XMS_ITS | Encounter Summary ---
Author Organization [employer] Address [address] [facility] 7t [place] [address] Care Team Providers Care Hydro Operator Name Role Phone Alysia Holbrook MD Primary Care Provider + Reason for Visit * Reason Onset Date Comments Med Refill 12/25/2024 Encounter Details Date Type Department Care Team (Late st Contact Info) Description 12/25/2024 Telephone [facility] [address] [place], [place] [phone] Alysia Holbrook MD [address] [place], [place] [phone] Med Refill Social History Tobacco Use Types [...] Telephone Encounter - Shannan Huerta LPN - 12/25/2024 1:06 PM EDT Medication pended to PCP. * Telephone Encounter - Renee Qureshi - 12/25/2024 12:57 PM EDT TC from pt requesting medication refill. Medications needing refill : gabapentin (Neurontin) 600 MG tablet [id number] - [address] AT [facility] documented in this encounter Plan of Treatment Upcoming Encounters Date Type Department Care Team (Late st Contact Info) Description 01/15/2025 10:30 AM EDT Clinical Support [facility] [address] [place] [phone] Jayashree Johns RN 01/16/2025 11:15 AM EDT Office Visit [facility] [address] [place] [phone] Alysia Holbrook MD [address] [place] [address] [phone] documented as of this encounter Visit Diagnoses Not on filedocumented in this encounter Additional Health Concerns Assessment Noted Time PHQ-9 Depression Total Score: 20 025 2:55 PM EDT documented as of this encounter Care Teams Hydro Operator Relationship Specialty Start Date End Date Alysia Holbrook MD [address] [place] [phone] PCP - General Family Medicine 06/07/18 documented as of this encounter
--- OUTSIDE RECORDS SUMMARY | 2025-01-01 16:42 | XMS_ITS | Encounter Summary ---
Author Organization [employer] Address [address] [facility] [facility] [address] 7t [place] [address] Care Team Providers Care Patient Services Specialist Name Role Phone Alysia Holbrook MD Primary Care Provider + Encounter Details Date Type Department Care Team (Latest Contact Info) Description 01/01/2025 Travel Social History Tobacco Use Types Packs/Day [...] Description 01/15/2025 10:30 AM EDT Clinical Support [facility] [address] [place] [phone] Jayashree Johns, CAPO 01/16/2025 11:15 AM EDT Office Visit [facility] [address] [place] [phone] Alysia Holbrook MD [address] [place] [phone] documented as of this encounter Visit Diagnoses Not on filedocumented in this encounter Additional Health Concerns Assessment Noted Time PHQ-9 Depression Total Score: 20 025 2:55 PM EDT documented as of this encounter Care Teams Patient Services Specialist Relationship Specialty Start Date End Date Alysia Holbrook MD [address] [place] [phone] PCP - General Family Medicine 06/07/18 documented as of this encounter
[2025-01-09 10:17] LABS: Hydrocodone, Ur NEGATIVE; Hydromorphone, Ur NEGATIVE; Morphine, Ur 1968; Norhydrocodone, Ur NEGATIVE; Noroxycodone, Ur NEGATIVE; Oxycodone, Ur NEGTIVE; Oxymorphone, Ur NEGATIVE
[2025-01-09 10:19] LABS: Codeine, Ur 154
[2025-01-13 07:43] LABS: Norfentanyl, Ur >250.0
[2025-01-13 07:44] LABS: Fentanyl, Ur 205.0
== END 2025-01-01 16:26 | disposition home or self-care (01) ==
LOC: HO.HHCLNP 16:25
PROVIDERS: Visit Provider Internal Medicine
DX: Z51.81 Encounter for therapeutic drug level monitoring (principal); Z79.899 Other long term (current) drug therapy
CPT/HCPCS: 80354; 80365; G0480